=== PATIENT | male | born 1975 | race Caucasian/White ===

== ENCOUNTER 2018-04-04 01:58 | Inpatient (IN) | payer OTHER, SELFPAY ==
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
[2018-04-04 03:48] LABS: Basophils # (Auto) 0.2 K/mm3 (0.0-0.1); Basophils % (Auto) 1.1 % (0.0-1.8); Eosinophils % (Auto) 0.3 % (0.0-4.3); Lymphocytes % (Auto) 6.8 % (13.4-35.0); Mean Corpuscular HGB Conc 37 % (32-34); Mean Corpuscular Volume 110 fl (84-94); Red Blood Count 2.83 M/mm3 (3.65-5.03); Red Cell Distribution Width 14.5 % (13.2-15.2)
[2018-04-04] MEDS ORDERED: ZOFRAN IV ONE (03:48)
[2018-04-04] MEDS ORDERED: SUBLIMAZE IV ONE (03:48)
[2018-04-04 03:57] LABS: Platelet Count 100 K/mm3 (140-440)
--- NOTE | 2018-04-04 04:04 | XRay Report ---
FINAL REPORT EXAM: XR CHEST 1V AP HISTORY: shortness of breath TECHNIQUE: A portable upright view of the chest was obtained. FINDINGS: The heart size and vascularity appear normal. The lungs are clear. Pleural fluid is not seen. The bon es and soft tissues well maintained. IMPRESSION: No acute cardiopulmonary process.
[2018-04-04 04:09] LABS: Alanine Aminotransferase 51 units/L (7-56); Albumin 2.3 g/dL (3.9-5); BUN/Creatinine Ratio 10; Blood Urea Nitrogen 2 mg/dL (9-20); Calcium 6.9 mg/dL (8.4-10.2); Hemolysis Index 0
[2018-04-04 04:17] LABS: Free T4 (Free Thyroxine) 1.25 ng/dL (0.76-1.46); INR 2.16 (0.87-1.13)
[2018-04-04 04:18] LABS: Partial Thromboplastin Time 59.5 Sec. (24.2-36.6)
[2018-04-04] MEDS ORDERED: NACL 0.9% 1000 ML 1,000 ML IV ONE (04:24)
[2018-04-04] MEDS ORDERED: NACL 0.9% 1000 ML 1,000 ML ONE (04:25)
[2018-04-04 04:36] LABS: Hematocrit 30.5 % (35.5-45.6); Hemoglobin 11.2 gm/dl (11.8-15.2)
[2018-04-04] MEDS ORDERED: CEPHULAC PO ONE (04:37)
[2018-04-04] MEDS ORDERED: MORPHINE IV ONE (05:57)
[2018-04-04] MEDS ORDERED: MORPHINE ONE (06:03)
[2018-04-04] MEDS ORDERED: ZOFRAN IV PRN (06:26)
[2018-04-04] MEDS ORDERED: SODIUM CHLORIDE FLUSH SYRINGE 10 ML IV PRN (06:26)
[2018-04-04] MEDS ORDERED: MAGNESIUM SULFATE 1 GM in NACL 0.9% 50 ML IV ONE (06:32)
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
--- NOTE | 2018-04-04 07:50 | Ultrasound Report ---
FINAL REPORT EXAM: US ABDOMEN COMPLETE HISTORY: elevated bili TECHNIQUE: Routine imaging was obtained of the abdomen. FINDINGS: The study is limited because of the patient's habitus. The liver reveals increased echotexture compat ible with fatty change. There are no focal hepatic lesions. The gallbladder is normal in size. Stones are not seen. The gallbladder wall thickness is 3.6 mm. There is no evidence of dilatation of the bi liary tree. The common bile duct is difficult to visualize. The left kidney is normal size contour and echotexture measuring 12.3 cm pole to pole. The right kidn ey is atrophic measuring 8 cm from pole to pole. There is no evidence of hydronephrosis. The spleen i s normal in size and echotexture. The pancreas is not well seen because of bowel gas. Free fluid is n ot seen. IMPRESSION: Hepatic steatosis. No evidence of biliary tree dilatation. No evidence of gallstones or secondary signs of acute cholecystitis. Atrophic right kidney. No evidence of hydronephrosis. Limited study because of patient's large habitus.
[2018-04-04] MEDS ORDERED: NACL 3% 500 ML IV ONE (08:00)
--- NOTE | 2018-04-04 08:43 | Consultation ---
History of Present Illness - Reason for Consult Consult date: 04/04/18 hyponatremia - History of Present Illness Mr. Lindsey is a 43yo with hx of alcohol abuse who presents to the hospital with generalized weakness. His sister is at bedside who reports appx 8 months ago, his eyes began turning yellow. In addition, she reports that onset of leg swelling at that time. Sister reports that recently, patient has been stumbling and likely falling as he has been found on the floor on prior occasions. Patient reports worsening of weakness over the past week. He denies headache, nausea and vomiting. He typically drinks 6-8 beers during the weekday and 10 beers/day on the weekend. Past History Past Surgical History: No surgical history Social history: lives with family, alcohol abuse Medications and Allergies Allergies Allergy/AdvReac Type Severity Reaction Status Date / Time No Known Allergies Allergy Verified 04/04/18 04:27 Home Medications Medication Instructions Recorded Confirmed Last Taken Type Multivitamin [One Daily 1 each PO DAILY 04/04/18 04/04/18 Unknown History Multivitamin] Active Meds: Active Medications Folic Acid (Folvite) 1 mg PO QDAY DENISE Sodium Chloride (Nacl 3%) 500 mls @ 25 mls/hr IV DIRECT ONE Stop: 04/05/18 03:59 Lorazepam (Ativan) 2 mg IV Q1HR PRN PRN Reason: CIWA-Ar 8-15 Lorazepam (Ativan) 4 mg IV Q1HR PRN PRN Reason: CIWA-Ar 16-25 Ondansetron HCl (Zofran) 4 mg IV Q8H PRN PRN Reason: Nausea And Vomiting Sodium Chloride (Sodium Chloride Flush Syringe 10 Ml) 10 ml IV BID DENISE Sodium Chloride (Sodium Chloride Flush Syringe 10 Ml) 10 ml IV PRN PRN PRN Reason: LINE FLUSH Thiamine HCl (Vitamin B-1) 100 mg PO DAILY DENISE Review of Systems All systems: negative Exam - Vital Signs Vital signs: Vital Signs Pulse Resp BP Pulse Ox 100 H 20 139/76 96 04/04/18 02:04 04/04/18 02:04 04/04/18 02:04 04/04/18 02:04 - General Appearance General appearance: well-developed, well-nourished EENT: sclera incterus Respiratory: Clear to Ascultation Heart: regular, S1S2 Gastrointestinal: Present: obese. Absent: tenderness, distended Integumentary: no rash, warm and dry Neurologic: other (alert; responds appropriately to questions) Musculoskeletal: Present: other Psychiatric: cooperative Results - Lab Results 04/04/18 04:00 04/04/18 Unknown Most recent lab results Calcium 6.9 mg/dL (8.4-10.2) L 04/04/18 03:00 Magnesium 1.60 mg/dL (1.7-2.3) L 04/04/18 03:00 Assessment and Plan Impression: * Severe hyponatremia, symptomatic * Hyperbilirubinemia * Peripheral edema * Alcohol hepatitis vs liver cirrhosis * Alcohol abuse Plan: * Patient w/ edema but CXR is clear. Given sx of generalized weakness and Na 103, will start 3% NaCl 50ml/hour * Serial Na [id number] * Will order SOsm, UOsm and urine lytes * Neuro checks [id number] * Patient would benefit from diruesis but would like Na >110 prior to starting Lasix * Alcohol cessation advised * GI/Hepatology consult pending
--- NOTE | 2018-04-04 09:14 | Vascular Lab Report ---
FINAL REPORT EXAM: VL VENOUS DUPLEX LE BILAT HISTORY: leg pain TECHNIQUE: Doe scale with color flow and spectral waveform Doppler imaging. PRIORS: None. FINDINGS: There is no evidence of deep venous thrombosis in either lower extremity. Flow is demonstrated by color flow and spectral waveform Doppler imaging. There is appropriate augmentation and wall compression. There is also no superficial venous thrombus seen. IMPRESSION: There is no evidence for DVT in right or left lower extremity.
[2018-04-04 10:26] LABS: BUN/Creatinine Ratio 10; Blood Urea Nitrogen 2 mg/dL (9-20); Calcium 6.7 mg/dL (8.4-10.2); Hemolysis Index 23
[2018-04-04] MEDS ORDERED: MORPHINE IV PRN (10:33)
[2018-04-04] MEDS: MORPHINE IV PRN (11:35)
[2018-04-04] MEDS: FOLVITE PO SCH (11:37)
[2018-04-04] MEDS: VITAMIN B-1 PO SCH (11:37)
[2018-04-04] MEDS: SODIUM CHLORIDE FLUSH SYRINGE 10 ML IV SCH ×2 (11:38→22:30)
--- NOTE | 2018-04-04 12:05 | Event Note ---
Date: 04/04/18 Patient with acute alcoholic hepatitis, severe hyponatremia on 3%NaCl. I have seen and examined him. Continue current management.
--- NOTE | 2018-04-04 12:16 | Gastroenterology Consultation ---
<LYNDON DE LUNA - Last Filed: 04/04/18 12:55> History of Present Illness - Reason for Consult Consult date: 04/04/18 ETOH/cirrhosis Requesting physician: THERESA RESTREPO - History of Present Illness Patient is a 43 y/o male with PMH of ETOH abuse who presented to ED with c/o generalized weakness, leg swelling/pain, and jaundice. Upon admission he was found to have hyponatremia and hyperbilirubinemia. GI has been consulted to ETOH/cirrhosis? This afternoon patient was resting in bed w/o acute distress and family at bedside. He is currently w/o GI complaints. Denies fever, CP, SOB, wt loss, abd pain, N/V, signs of bleeding, or LGI symptoms. Has no prior hx of liver disease. No Fhx of liver disease. No illicit drug use. Admits to heavy alcohol consumption with a 6 pack of beer daily and more on weekends for over 10 years. Past History Past Medical History: hypertension, other (obesity) Past Surgical History: No surgical history Social history: alcohol abuse. denies: smoking, IV drug use Family history: hypertension Medications and Allergies Allergies Allergy/AdvReac Type Severity Reaction Status Date / Time No Known Allergies Allergy Verified 04/04/18 04:27 Home Medications Medication Instructions Recorded Confirmed Last Taken Type Multivitamin [One Daily 1 each PO DAILY 04/04/18 04/04/18 Unknown History Multivitamin] Active Meds: Active Medications Folic Acid (Folvite) 1 mg PO QDAY DENISE Last Admin: 04/04/18 11:37 Dose: 1 mg Documented by: Sodium Chloride (Nacl 3%) 500 mls @ 25 mls/hr IV DIRECT ONE Stop: 04/05/18 03:59 Last Admin: 04/04/18 09:08 Dose: 25 mls/hr Documented by: Lorazepam (Ativan) 2 mg IV Q1HR PRN PRN Reason: CIWA-Ar 8-15 Lorazepam (Ativan) 4 mg IV Q1HR PRN PRN Reason: CIWA-Ar 16-25 Morphine Sulfate (Morphine) 2 mg IV Q4H PRN PRN Reason: Pain, Moderate (4-6) Last Admin: 04/04/18 11:35 Dose: 2 mg Documented by: Ondansetron HCl (Zofran) 4 mg IV Q8H PRN PRN Reason: Nausea And Vomiting Sodium Chloride (Sodium Chloride Flush Syringe 10 Ml) 10 ml IV BID [facility] Last Admin: 04/04/18 11:38 Dose: 10 ml Documented by: Sodium Chloride (Sodium Chloride Flush Syringe 10 Ml) 10 ml IV PRN PRN PRN Reason: LINE FLUSH Thiamine HCl (Vitamin B-1) 100 mg PO DAILY [facility] Last Admin: 04/04/18 11:37 Dose: 100 mg Documented by: medications reviewed/updated as required Review of Systems - Review of Systems All systems: negative Constitutional: weakness Gastrointestinal: jaundice, no abdominal pain, no nausea, no vomiting Musculoskeletal: other (leg pain/swelling) Exam - Constitutional Vital Signs: Temp Pulse Resp BP Pulse Ox 98.9 F 92 H 18 106/64 98 04/04/18 10:00 04/04/18 09:12 04/04/18 09:12 04/04/18 09:12 04/04/18 09:12 General appearance: no acute distress, obese - EENT Eyes: PERRL, EOM intact, scleral icterus ENT: hearing intact - Respiratory Respiratory: bilateral: CTA - Cardiovascular Rhythm: regular Heart Sounds: Present: S1 & S2 - Gastrointestinal General gastrointestinal: Present: soft, non-tender, non-distended, normal bowel sounds, other (obese) - Integumentary Integumentary: Present: jaundice - Neurologic Neurological: alert and oriented x3 - Labs CBC & Chem 7: 04/04/18 04:00 04/04/18 Unknown Lab Results: Laboratory Results - last 24 hr 04/04/18 04/04/18 04/04/18 03:00 03:00 03:00 WBC 14.1 H RBC 2.83 L Hgb Hct MCV 110 H MCH 40 H MCHC 37 H RDW 14.5 Plt Count 100 L Lymph % (Auto) 6.8 L [place] % (Auto) 7.0 Eos % (Auto) 0.3 Baso % (Auto) 1.1 Lymph # 1.0 L [place] # 1.0 H Eos # 0.0 Baso # 0.2 H Seg Neutrophils % 84.8 H Seg Neutrophils # 11.9 H PT 24.5 H INR 2.16 H APTT 59.5 H Sodium 103 L* Potassium 3.7 Chloride 65.5 L Carbon Dioxide 17 L Anion Gap 22 BUN 2 L Creatinine < 0.2 L Estimated GFR > 60 BUN/Creatinine Ratio 10 Glucose 121 H Osmolality Calcium 6.9 L Magnesium Total Bilirubin 14.80 H AST 291 H ALT 51 Alkaline Phosphatase 112 Ammonia NT-Pro-B Natriuret Pep Total Protein 8.5 H Albumin 2.3 L Albumin/Globulin Ratio 0.4 Lipase 121 H TSH Free T4 Plasma/Serum Alcohol Blood Type Antibody Screen 04/04/18 04/04/18 04/04/18 03:00 03:00 03:00 WBC RBC Hgb Hct MCV MCH MCHC RDW Plt Count Lymph % (Auto) [place] % (Auto) Eos % (Auto) Baso % (Auto) Lymph # [place] # Eos # Baso # Seg Neutrophils % Seg Neutrophils # PT INR APTT Sodium Potassium Chloride Carbon Dioxide Anion Gap BUN Creatinine Estimated GFR BUN/Creatinine Ratio Glucose Osmolality Calcium Magnesium Total Bilirubin AST ALT Alkaline Phosphatase Ammonia 78.0 H NT-Pro-B Natriuret Pep Total Protein Albumin Albumin/Globulin Ratio Lipase TSH 2.320 Free T4 1.25 Plasma/Serum Alcohol Blood Type O POSITIVE Antibody Screen Negative 04/04/18 04/04/18 04/04/18 03:00 03:00 03:00 WBC RBC Hgb Hct MCV MCH MCHC RDW Plt Count Lymph % (Auto) [place] % (Auto) Eos % (Auto) Baso % (Auto) Lymph # [place] # Eos # Baso # Seg Neutrophils % Seg Neutrophils # PT INR APTT Sodium Potassium Chloride Carbon Dioxide Anion Gap BUN Creatinine Estimated GFR BUN/Creatinine Ratio Glucose Osmolality Calcium Magnesium 1.60 L Total Bilirubin AST ALT Alkaline Phosphatase Ammonia NT-Pro-B Natriuret Pep 519.7 H Total Protein Albumin Albumin/Globulin Ratio Lipase TSH Free T4 Plasma/Serum Alcohol 0.20 H Blood Type Antibody Screen 04/04/18 04/04/18 04/04/18 04:00 07:55 09:57 WBC RBC Hgb 11.2 L Hct 30.5 L MCV MCH MCHC RDW Plt Count Lymph % (Auto) [place] % (Auto) Eos % (Auto) Baso % (Auto) Lymph # [place] # Eos # Baso # Seg Neutrophils % Seg Neutrophils # PT INR APTT Sodium 102 L* Potassium 3.8 Chloride 70.2 L Carbon Dioxide 18 L Anion Gap 19 BUN 2 L Creatinine < 0.2 L Estimated GFR > 60 BUN/Creatinine Ratio 10 Glucose 104 H Osmolality 270 Calcium 6.7 L Magnesium Total Bilirubin AST ALT Alkaline Phosphatase Ammonia NT-Pro-B Natriuret Pep Total Protein Albumin Albumin/Globulin Ratio Lipase TSH Free T4 Plasma/Serum Alcohol Blood Type Antibody Screen 04/04/18 Unknown WBC RBC Hgb Hct MCV MCH MCHC RDW Plt Count Lymph % (Auto) [place] % (Auto) Eos % (Auto) Baso % (Auto) Lymph # [place] # Eos # Baso # Seg Neutrophils % Seg Neutrophils # PT INR APTT Sodium 103 L* Potassium Chloride Carbon Dioxide Anion Gap BUN Creatinine Estimated GFR BUN/Creatinine Ratio Glucose Osmolality Calcium Magnesium Total Bilirubin AST ALT Alkaline Phosphatase Ammonia NT-Pro-B Natriuret Pep Total Protein Albumin Albumin/Globulin Ratio Lipase TSH Free T4 Plasma/Serum Alcohol Blood Type Antibody Screen Assessment and Plan 1.jaundice/hyperbilirubinemia 2.ETOH abuse -afebrile -WBC 14.1 -H/H 11.2/30.5-no active signs of bleeding -Plt 100, INR 2.16 -T.tushar 14.80, AST 291, ALT 51, alk phos 112 -abd U/S-showed hepatic steatosis; no evidence of obstruction or lesion -etiology- likely acute alcoholic hepatitis; underlying cirrhosis unable to be excluded (labs suggestive given low plt and elevated INR) -clinically, patient is w/o abd pain, N/V, or active signs of bleeding. No c linical evidence of encephalopathy upon exam. -discriminant function= 72 (indicative of high short-term mortality)- will start on steroids (Prednisolone 40mg daily) -hepatitis panel in am -alcohol cessation discussed with patient-monitor for withdrawal symptoms -continue to trend labs and supportive care -will follow <LOVE GOODWIN - Last Filed: 04/04/18 19:17> Medications and Allergies Active Meds: Active Medications Folic Acid (Folvite) 1 mg PO QDAY [facility] Last Admin: 04/04/18 11:37 Dose: 1 mg Documented by: Lorazepam (Ativan) 2 mg IV Q1HR PRN PRN Reason: CIWA-Ar 8-15 Last Admin: 04/04/18 16:08 Dose: 2 mg Documented by: Lorazepam (Ativan) 4 mg IV Q1HR PRN PRN Reason: CIWA-Ar 16-25 Morphine Sulfate (Morphine) 2 mg IV Q4H PRN PRN Reason: Pain, Moderate (4-6) Last Admin: 04/04/18 11:35 Dose: 2 mg Documented by: Ondansetron HCl (Zofran) 4 mg IV Q8H PRN PRN Reason: Nausea And Vomiting Prednisolone Sodium Phosphate (Orapred) 40 mg PO DAILY [facility] Sodium Chloride (Sodium Chloride Flush Syringe 10 Ml) 10 ml IV BID [facility] Last Admin: 04/04/18 11:38 Dose: 10 ml Documented by: Sodium Chloride (Sodium Chloride Flush Syringe 10 Ml) 10 ml IV PRN PRN PRN Reason: LINE FLUSH Thiamine HCl (Vitamin B-1) 100 mg PO DAILY [facility] Last Admin: 04/04/18 11:37 Dose: 100 mg Documented by: Exam - Constitutional Vital Signs: Temp Pulse Resp BP Pulse Ox 98.7 F 92 H 22 106/64 97 04/04/18 16:00 04/04/18 09:12 04/04/18 14:58 04/04/18 09:12 04/04/18 14:58 - Labs CBC & Chem 7: 04/04/18 04:00 04/04/18 Unknown Lab Results: Laboratory Results - last 24 hr 04/04/18 04/04/18 04/04/18 03:00 03:00 03:00 WBC 14.1 H RBC 2.83 L Hgb Hct MCV 110 H MCH 40 H MCHC 37 H RDW 14.5 Plt Count 100 L Lymph % (Auto) 6.8 L [place] % (Auto) 7.0 Eos % (Auto) 0.3 Baso % (Auto) 1.1 Lymph # 1.0 L [place] # 1.0 H Eos # 0.0 Baso # 0.2 H Seg Neutrophils % 84.8 H Seg Neutrophils # 11.9 H PT 24.5 H INR 2.16 H APTT 59.5 H Sodium 103 L* Potassium 3.7 Chloride 65.5 L Carbon Dioxide 17 L Anion Gap 22 BUN 2 L Creatinine < 0.2 L Estimated GFR > 60 BUN/Creatinine Ratio 10 Glucose 121 H Osmolality Calcium 6.9 L Magnesium Total Bilirubin 14.80 H AST 291 H ALT 51 Alkaline Phosphatase 112 Ammonia NT-Pro-B Natriuret Pep Total Protein 8.5 H Albumin 2.3 L Albumin/Globulin Ratio 0.4 Lipase 121 H TSH Free T4 Urine Color Urine Turbidity Urine pH Ur Specific [place] Urine Protein Urine Glucose (UA) Urine Ketones Urine Blood Urine Nitrite Urine Bilirubin Urine Ictotest Urine Urobilinogen Ur Leukocyte Esterase Urine WBC (Auto) Urine RBC (Auto) Urine Bacteria (Auto) Urine Mucus Urine Osmolality Urine Creatinine Urine Sodium Urine Chloride Plasma/Serum Alcohol Blood Type Antibody Screen 04/04/18 04/04/18 04/04/18 03:00 03:00 03:00 WBC RBC Hgb Hct MCV MCH MCHC RDW Plt Count Lymph % (Auto) [place] % (Auto) Eos % (Auto) Baso % (Auto) Lymph # [place] # Eos # Baso # Seg Neutrophils % Seg Neutrophils # PT INR APTT Sodium Potassium Chloride Carbon Dioxide Anion Gap BUN Creatinine Estimated GFR BUN/Creatinine Ratio Glucose Osmolality Calcium Magnesium Total Bilirubin AST ALT Alkaline Phosphatase Ammonia 78.0 H NT-Pro-B Natriuret Pep Total Protein Albumin Albumin/Globulin Ratio Lipase TSH 2.320 Free T4 1.25 Urine Color Urine Turbidity Urine pH Ur Specific [place] Urine Protein Urine Glucose (UA) Urine Ketones Urine Blood Urine Nitrite Urine Bilirubin Urine Ictotest Urine Urobilinogen Ur Leukocyte Esterase Urine WBC (Auto) Urine RBC (Auto) Urine Bacteria (Auto) Urine Mucus Urine Osmolality Urine Creatinine Urine Sodium Urine Chloride Plasma/Serum Alcohol Blood Type O POSITIVE Antibody Screen Negative 04/04/18 04/04/18 04/04/18 03:00 03:00 03:00 WBC RBC Hgb Hct MCV MCH MCHC RDW Plt Count Lymph % (Auto) [place] % (Auto) Eos % (Auto) Baso % (Auto) Lymph # [place] # Eos # Baso # Seg Neutrophils % Seg Neutrophils # PT INR APTT Sodium Potassium Chloride Carbon Dioxide Anion Gap BUN Creatinine Estimated GFR BUN/Creatinine Ratio Glucose Osmolality Calcium Magnesium 1.60 L Total Bilirubin AST ALT Alkaline Phosphatase Ammonia NT-Pro-B Natriuret Pep 519.7 H Total Protein Albumin Albumin/Globulin Ratio Lipase TSH Free T4 Urine Color Urine Turbidity Urine pH Ur Specific [place] Urine Protein Urine Glucose (UA) Urine Ketones Urine Blood Urine Nitrite Urine Bilirubin Urine Ictotest Urine Urobilinogen Ur Leukocyte Esterase Urine WBC (Auto) Urine RBC (Auto) Urine Bacteria (Auto) Urine Mucus Urine Osmolality Urine Creatinine Urine Sodium Urine Chloride Plasma/Serum Alcohol 0.20 H Blood Type Antibody Screen 04/04/18 04/04/18 04/04/18 04:00 07:55 09:57 WBC RBC Hgb 11.2 L Hct 30.5 L MCV MCH MCHC RDW Plt Count Lymph % (Auto) [place] % (Auto) Eos % (Auto) Baso % (Auto) Lymph # [place] # Eos # Baso # Seg Neutrophils % Seg Neutrophils # PT INR APTT Sodium 102 L* Potassium 3.8 Chloride 70.2 L Carbon Dioxide 18 L Anion Gap 19 BUN 2 L Creatinine < 0.2 L Estimated GFR > 60 BUN/Creatinine Ratio 10 Glucose 104 H Osmolality 270 Calcium 6.7 L Magnesium Total Bilirubin AST ALT Alkaline Phosphatase Ammonia NT-Pro-B Natriuret Pep Total Protein Albumin Albumin/Globulin Ratio Lipase TSH Free T4 Urine Color Urine Turbidity Urine pH Ur Specific [place] Urine Protein Urine Glucose (UA) Urine Ketones Urine Blood Urine Nitrite Urine Bilirubin Urine Ictotest Urine Urobilinogen Ur Leukocyte Esterase Urine WBC (Auto) Urine RBC (Auto) Urine Bacteria (Auto) Urine Mucus Urine Osmolality Urine Creatinine Urine Sodium Urine Chloride Plasma/Serum Alcohol Blood Type Antibody Screen 04/04/18 04/04/18 04/04/18 15:15 16:10 16:10 WBC RBC Hgb Hct MCV MCH MCHC RDW Plt Count Lymph % (Auto) [place] % (Auto) Eos % (Auto) Baso % (Auto) Lymph # [place] # Eos # Baso # Seg Neutrophils % Seg Neutrophils # PT INR APTT Sodium 104 L* Potassium 3.8 Chloride 72.0 L Carbon Dioxide 20 L Anion Gap 16 BUN 2 L Creatinine < 0.2 L Estimated GFR > 60 BUN/Creatinine Ratio 10 Glucose 114 H Osmolality Calcium 6.5 L Magnesium Total Bilirubin AST ALT Alkaline Phosphatase Ammonia NT-Pro-B Natriuret Pep Total Protein Albumin Albumin/Globulin Ratio Lipase TSH Free T4 Urine Color [place] Urine Turbidity Cloudy Urine pH 6.0 Ur Specific [place] 1.017 Urine Protein 30 mg/dl Urine Glucose (UA) 50 Urine Ketones Tr Urine Blood Lg Urine Nitrite Neg Urine Bilirubin Mod Urine Ictotest Positive Urine Urobilinogen 4.0 Ur Leukocyte Esterase Neg Urine WBC (Auto) 24.0 H Urine RBC (Auto) 3.0 Urine Bacteria (Auto) 2+ Urine Mucus 1+ Urine Osmolality Urine Creatinine 136.8 H Urine Sodium 13 Urine Chloride 23.9 L Plasma/Serum Alcohol Blood Type Antibody Screen 04/04/18 04/04/18 04/04/18 16:10 18:30 Unknown WBC RBC Hgb Hct MCV MCH MCHC RDW Plt Count Lymph % (Auto) [place] % (Auto) Eos % (Auto) Baso % (Auto) Lymph # [place] # Eos # Baso # Seg Neutrophils % Seg Neutrophils # PT INR APTT Sodium 105 L* 103 L* Potassium 3.8 Chloride 74.1 L Carbon Dioxide 20 L Anion Gap 15 BUN 3 L Creatinine 0.2 L Estimated GFR > 60 BUN/Creatinine Ratio 15 Glucose 110 H Osmolality Calcium 6.5 L Magnesium Total Bilirubin AST ALT Alkaline Phosphatase Ammonia NT-Pro-B Natriuret Pep Total Protein Albumin Albumin/Globulin Ratio Lipase TSH Free T4 Urine Color Urine Turbidity Urine pH Ur Specific [place] Urine Protein Urine Glucose (UA) Urine Ketones Urine Blood Urine Nitrite Urine Bilirubin Urine Ictotest Urine Urobilinogen Ur Leukocyte Esterase Urine WBC (Auto) Urine RBC (Auto) Urine Bacteria (Auto) Urine Mucus Urine Osmolality 485 Urine Creatinine Urine Sodium Urine Chloride Plasma/Serum Alcohol Blood Type Antibody Screen Assessment and Plan Pt seen and examined. Agree with note above. Pt presenting with likely alcoholic hepatitis; has complications of severe hyponatremia. no overt encephalopathy. No signs of infection or gi bleeding. Prednisolone as above. Trend daily labs. Consult nutrition for recommendations
[2018-04-04 15:45] LABS: BUN/Creatinine Ratio 10; Blood Urea Nitrogen 2 mg/dL (9-20); Calcium 6.5 mg/dL (8.4-10.2); Hemolysis Index 0
[2018-04-04] MEDS: ATIVAN IV PRN (16:08)
[2018-04-04 16:30] LABS: Bacteria,Urine 2+ /HPF (Negative); Bilirubin,Urine MOD (Negative); Blood,Urine LG (Negative); Color,Urine Amber (Yellow); Mucus,Urine 1+ /HPF
[2018-04-04 16:35] LABS: Ictotest,Urine Positive (Negative)
[2018-04-04 16:50] LABS: Chloride, Urine 23.9 mmolL (110-250); Creatinine,Urine 136.8 mg/dL (0.1-20.0)
[2018-04-04 18:33] LABS: BUN/Creatinine Ratio 15; Blood Urea Nitrogen 3 mg/dL (9-20); Calcium 6.5 mg/dL (8.4-10.2); Hemolysis Index 5
[2018-04-04] MEDS: ORAPRED PO SCH (20:29)
[2018-04-04 22:18] LABS: BUN/Creatinine Ratio 15; Blood Urea Nitrogen 3 mg/dL (9-20); Calcium 6.6 mg/dL (8.4-10.2); Hemolysis Index 0
[2018-04-04] MEDS ORDERED: K-DUR PO NR (23:12)
[2018-04-04] MEDS ORDERED: MAGNESIUM SULFATE IV ONE (23:13)
[2018-04-04] MEDS ORDERED: POTASSIUM CHLORIDE FEEDTUBE NR (23:49)
[2018-04-05] MEDS ORDERED: MAGNESIUM SULFATE 2GM/50ML 2 GM/50 ML BAG IV ONE
[2018-04-05 02:47] LABS: BUN/Creatinine Ratio 15; Blood Urea Nitrogen 3 mg/dL (9-20); Calcium 6.8 mg/dL (8.4-10.2); Hemolysis Index 0
[2018-04-05] MEDS ORDERED: NACL 3% 500 ML IV ONE (03:10)
[2018-04-05] MEDS: ATIVAN IV PRN (03:22)
[2018-04-05 05:30] LABS: Hemoglobin 10.3 gm/dl (11.8-15.2); Mean Corpuscular HGB Conc 36 % (32-34); Red Blood Count 2.59 M/mm3 (3.65-5.03); Red Cell Distribution Width 14.5 % (13.2-15.2)
[2018-04-05 05:31] LABS: Mean Corpuscular Volume 112 fl (84-94); Platelet Count 76 K/mm3 (140-440)
[2018-04-05 05:43] LABS: INR 2.23 (0.87-1.13)
[2018-04-05 05:44] LABS: Partial Thromboplastin Time 59.4 Sec. (24.2-36.6)
[2018-04-05 05:58] LABS: Alanine Aminotransferase 86 units/L (7-56); Albumin 2.2 g/dL (3.9-5); BUN/Creatinine Ratio 15; Blood Urea Nitrogen 3 mg/dL (9-20); Calcium 6.7 mg/dL (8.4-10.2); Hemolysis Index 0
[2018-04-05 06:58] LABS: Band Neutrophils # (Manual) 2.4 K/mm3; Basophils % (Manual) 0 % (0.0-1.8); Eosinophils % (Manual) 0 % (0.0-4.3); Macrocytosis 1+; Target Cells Few; Total Cells Counted 100
[2018-04-05 06:59] LABS: Hypochromasia Few; Platelet Estimate Consistent w Auto; Spherocytes Few
--- NOTE | 2018-04-05 09:26 | Progress Note ---
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 * Alcohol abuse * Hypomagnesemia Plan: * Na improved - 108 this am. Continue 3% NaCl 50ml/hour * Serial Na [id number] * Patient w/ peripheral edema, but abd u/s without ascites; hold diuresis for now * Alcohol cessation advised * GI/Hepatology recommendations noted * Replete lytes prn Subjective Date of service: 04/05/18 Interval history: No acute events overnight Objective - Vital Signs Vital signs: Vital Signs - 12hr 04/04/18 04/04/18 04/05/18 22:00 22:17 00:00 Temperature Pulse Rate 88 O2 Sat by Pulse 95 100 Oximetry 04/05/18 04/05/18 04:00 08:33 Temperature 98.3 F Pulse Rate O2 Sat by Pulse 99 92 Oximetry - General Appearance General appearance: well-developed, well-nourished, other (patient is eating breakfast, watching TV, requests to get out of bed and in a chair) EENT: sclera incterus Respiratory: Present: Decreased Breath Sounds Cardiology: regular, S1S2 Gastrointestinal: no tenderness, no distended, obese Integumentary: no rash, warm and dry Neurologic: other (alert) Musculoskeletal: other (+edema) Psychiatric: cooperative - Lab 04/05/18 04:59 04/05/18 04:59 Most recent lab results Calcium 6.7 mg/dL (8.4-10.2) L 04/05/18 04:59 Magnesium 1.60 mg/dL (1.7-2.3) L 04/04/18 03:00 Urine Creatinine 136.8 mg/dL (0.1-20.0) H 04/04/18 16:10 Urine Sodium 13 mmol/L 04/04/18 16:10 Medications & Allergies - Medications Allergies/Adverse Reactions: Allergies No Known Allergies Allergy (Verified 04/04/18 04:27) Home Medications: Home Medications Medication Instructions Recorded Confirmed Last Taken Type Multivitamin [One Daily 1 each PO DAILY 04/04/18 04/04/18 Unknown History Multivitamin] Active Medications: Generic Name Dose Route Start Last Admin Trade Name Freq PRN Reason Stop Dose Admin Folic Acid 1 mg 04/04/18 10:00 04/04/18 11:37 Folvite PO 1 mg QDAY DENISE Administration Sodium Chloride 500 mls @ 50 mls/hr 04/05/18 03:10 04/05/18 03:50 Nacl 3% IV 04/05/18 13:09 50 mls/hr DIRECT ONE Administration Lorazepam 4 mg 04/04/18 06:32 Ativan IV Q1HR PRN CIWA-Ar 16-25 Morphine Sulfate 2 mg 04/04/18 12:00 04/04/18 11:35 Morphine IV 2 mg Q4H PRN Administration Pain, Moderate (4-6) Ondansetron HCl 4 mg 04/04/18 06:26 Zofran IV Q8H PRN Nausea And Vomiting Prednisolone Sodium Phosphate 40 mg 04/04/18 16:00 04/04/18 20:29 Orapred PO 40 mg DAILY DENISE Administration Sodium Bicarbonate 1,300 mg 04/05/18 10:00 Sodium Bicarbonate PO BID DENISE Sodium Chloride 10 ml 04/04/18 10:00 04/04/18 22:30 Sodium Chloride Flush Syringe 10 Ml IV 10 ml BID DENISE Administration Sodium Chloride 10 ml 04/04/18 06:26 Sodium Chloride Flush Syringe 10 Ml IV PRN PRN LINE FLUSH Thiamine HCl 100 mg 04/04/18 10:00 04/04/18 11:37 Vitamin B-1 PO 100 mg DAILY DENISE Administration
[2018-04-05] MEDS: VITAMIN B-1 PO SCH (10:22)
[2018-04-05] MEDS: SODIUM BICARBONATE PO SCH ×2 (10:22→23:03)
[2018-04-05] MEDS: FOLVITE PO SCH (10:22)
[2018-04-05] MEDS: SODIUM CHLORIDE FLUSH SYRINGE 10 ML IV SCH ×2 (10:23→23:05)
[2018-04-05 10:25] LABS: BUN/Creatinine Ratio 20; Blood Urea Nitrogen 4 mg/dL (9-20); Calcium 6.6 mg/dL (8.4-10.2); Hemolysis Index 131
--- NOTE | 2018-04-05 11:02 | Progress Note ---
Assessment and Plan Assessment and plan: Severe hyponatremia, symptomatic; secondary to alcohol abuse/beer potomania. Sodium improved. Continue 3% normal saline per nephrology. Continue serial sodium every 4 hours. Hyperbilirubinemia. Abdominal ultrasound without ascites. Peripheral edema. 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 EtOH abuse. Continue CIWA protocol. Hypomagnesemia. Replete magnesium. History Interval history: No new issues overnight. Hospitalist Physical - Constitutional Vitals: Temp Pulse Resp BP Pulse Ox 98.7 F 88 22 106/64 92 04/05/18 09:29 04/04/18 22:00 04/04/18 14:58 04/04/18 09:12 04/05/18 08:33 General appearance: Present: no acute distress, well-nourished - EENT Eyes: Present: PERRL, EOM intact ENT: hearing intact, clear oral mucosa, dentition normal - Neck Neck: Present: supple, normal ROM - Respiratory Respiratory effort: normal Respiratory: bilateral: CTA - Cardiovascular Rhythm: regular Heart Sounds: Present: S1 & S2. Absent: gallop, rub - Extremities Extremities: no ischemia, No edema, Full ROM - Abdominal General gastrointestinal: soft, non-tender, non-distended, normal bowel sounds - Integumentary Integumentary: Present: clear, warm, dry - Neurologic Neurologic: CNII-XII intact, moves all extremities Results - Labs CBC & Chem 7: 04/05/18 04:59 04/05/18 09:42 Labs: Laboratory Last Values WBC 12.2 K/mm3 (4.5-11.0) H 04/05/18 04:59 RBC 2.59 M/mm3 (3.65-5.03) L 04/05/18 04:59 Hgb 10.3 gm/dl (11.8-15.2) L 04/05/18 04:59 Hct 29.0 % (35.5-45.6) L 04/05/18 04:59 MCV 112 fl (84-94) H 04/05/18 04:59 MCH 40 pg (28-32) H 04/05/18 04:59 MCHC 36 % (32-34) H 04/05/18 04:59 RDW 14.5 % (13.2-15.2) 04/05/18 04:59 Plt Count 76 K/mm3 (140-440) L 04/05/18 04:59 Lymph % (Auto) 6.8 % (13.4-35.0) L 04/04/18 03:00 Mayes % (Auto) 7.0 % (0.0-7.3) 04/04/18 03:00 Eos % (Auto) 0.3 % (0.0-4.3) 04/04/18 03:00 Baso % (Auto) 1.1 % (0.0-1.8) 04/04/18 03:00 Lymph # 1.0 K/mm3 (1.2-5.4) L 04/04/18 03:00 Mayes # 1.0 K/mm3 (0.0-0.8) H 04/04/18 03:00 Eos # 0.0 K/mm3 (0.0-0.4) 04/04/18 03:00 Baso # 0.2 K/mm3 (0.0-0.1) H 04/04/18 03:00 Add Manual Diff Complete 04/05/18 04:59 Total Counted 100 04/05/18 04:59 Seg Neutrophils % [employer]per 04/05/18 04:59 Seg Neuts % (Manual) 76.0 % (40.0-70.0) H 04/05/18 04:59 Band Neutrophils % 20.0 % 04/05/18 04:59 Lymphocytes % (Manual) 3.0 % (13.4-35.0) L 04/05/18 04:59 Reactive Lymphs % (Man) 0 % 04/05/18 04:59 Monocytes % (Manual) 1.0 % (0.0-7.3) 04/05/18 04:59 Eosinophils % (Manual) 0 % (0.0-4.3) 04/05/18 04:59 Basophils % (Manual) 0 % (0.0-1.8) 04/05/18 04:59 Metamyelocytes % 0 % 04/05/18 04:59 Myelocytes % 0 % 04/05/18 04:59 Promyelocytes % 0 % 04/05/18 04:59 Blast Cells % 0 % 04/05/18 04:59 Nucleated RBC % Not Reportable 04/05/18 04:59 Seg Neutrophils # 11.9 K/mm3 (1.8-7.7) H 04/04/18 03:00 Seg Neutrophils # Man 9.3 K/mm3 (1.8-7.7) H 04/05/18 04:59 Band Neutrophils # 2.4 K/mm3 04/05/18 04:59 Lymphocytes # (Manual) 0.4 K/mm3 (1.2-5.4) L 04/05/18 04:59 Abs React Lymphs (Man) 0.0 K/mm3 04/05/18 04:59 Monocytes # (Manual) 0.1 K/mm3 (0.0-0.8) 04/05/18 04:59 Eosinophils # (Manual) 0.0 K/mm3 (0.0-0.4) 04/05/18 04:59 Basophils # (Manual) 0.0 K/mm3 (0.0-0.1) 04/05/18 04:59 Metamyelocytes # 0.0 K/mm3 04/05/18 04:59 Myelocytes # 0.0 K/mm3 04/05/18 04:59 Promyelocytes # 0.0 K/mm3 04/05/18 04:59 Blast Cells # 0.0 K/mm3 04/05/18 04:59 WBC Morphology Not Reportable 04/05/18 04:59 Hypersegmented Neuts Not Reportable 04/05/18 04:59 Hyposegmented Neuts Not Reportable 04/05/18 04:59 Hypogranular Neuts Not Reportable 04/05/18 04:59 Smudge Cells Not Reportable 04/05/18 04:59 Toxic Granulation Not Reportable 04/05/18 04:59 Toxic Vacuolation Not Reportable 04/05/18 04:59 Dohle Bodies Not Reportable 04/05/18 04:59 Pelger-Huet Anomaly Not Reportable 04/05/18 04:59 Dannie Rods Not Reportable 04/05/18 04:59 Platelet Estimate Consistent w auto 04/05/18 04:59 Clumped Platelets Not Reportable 04/05/18 04:59 Plt Clumps, EDTA Not Reportable 04/05/18 04:59 Large Platelets Not Reportable 04/05/18 04:59 Giant Platelets Not Reportable 04/05/18 04:59 Platelet Satelliting Not Reportable 04/05/18 04:59 Plt Morphology Comment Not Reportable 04/05/18 04:59 RBC Morphology Not Reportable 04/05/18 04:59 Dimorphic RBCs Not Reportable 04/05/18 04:59 Polychromasia Not Reportable 04/05/18 04:59 Hypochromasia Few 04/05/18 04:59 Poikilocytosis Not Reportable 04/05/18 04:59 Anisocytosis Not Reportable 04/05/18 04:59 Microcytosis Not Reportable 04/05/18 04:59 Macrocytosis 1+ 04/05/18 04:59 Spherocytes Few 04/05/18 04:59 Pappenheimer Bodies Not Reportable 04/05/18 04:59 Sickle Cells Not Reportable 04/05/18 04:59 Target Cells Few 04/05/18 04:59 Tear Drop Cells Not Reportable 04/05/18 04:59 Ovalocytes Not Reportable 04/05/18 04:59 Helmet Cells Not Reportable 04/05/18 04:59 [place] Bodies Not Reportable 04/05/18 04:59 [place] Rings Not Reportable 04/05/18 04:59 Chandni Cells Not Reportable 04/05/18 04:59 Bite Cells Not Reportable 04/05/18 04:59 Crenated Cell Not Reportable 04/05/18 04:59 Elliptocytes Not Reportable 04/05/18 04:59 Acanthocytes (Spur) Not Reportable 04/05/18 04:59 Rouleaux Not Reportable 04/05/18 04:59 Hemoglobin C Crystals Not Reportable 04/05/18 04:59 Schistocytes Not Reportable 04/05/18 04:59 Malaria parasites Not Reportable 04/05/18 04:59 Slick Bodies Not Reportable 04/05/18 04:59 Hem Pathologist Commnt No 04/05/18 04:59 PT 25.1 Sec. (12.2-14.9) H 04/05/18 04:59 INR 2.23 (0.87-1.13) H 04/05/18 04:59 APTT 59.4 Sec. (24.2-36.6) H 04/05/18 04:59 Sodium 110 mmol/L (137-145) L* 04/05/18 09:42 Potassium 5.4 mmol/L (3.6-5.0) H D 04/05/18 09:42 Chloride 80.5 mmol/L (98-107) L 04/05/18 09:42 Carbon Dioxide 19 mmol/L (22-30) L 04/05/18 09:42 Anion Gap 16 mmol/L 04/05/18 09:42 BUN 4 mg/dL (9-20) L 04/05/18 09:42 Creatinine < 0.2 mg/dL (0.8-1.5) L 04/05/18 09:42 Estimated GFR > 60 ml/min 04/05/18 09:42 BUN/Creatinine Ratio 20 % 04/05/18 09:42 Glucose 128 mg/dL (75-100) H 04/05/18 09:42 POC Glucose 132 (70-105) H 04/04/18 21:37 Osmolality 270 Mosm/kg 04/04/18 07:55 Calcium 6.6 mg/dL (8.4-10.2) L 04/05/18 09:42 Magnesium 1.60 mg/dL (1.7-2.3) L 04/04/18 03:00 Total Bilirubin 15.00 mg/dL (0.1-1.2) H 04/05/18 04:59 AST 681 units/L (5-40) H 04/05/18 04:59 ALT 86 units/L (7-56) H 04/05/18 04:59 Alkaline Phosphatase 117 units/L (35-129) 04/05/18 04:59 Ammonia 78.0 umol/L (25-60) H 04/04/18 03:00 NT-Pro-B Natriuret Pep 519.7 pg/mL (0-450) H 04/04/18 03:00 Total Protein 7.5 g/dL (6.3-8.2) 04/05/18 04:59 Albumin 2.2 g/dL (3.9-5) L 04/05/18 04:59 Albumin/Globulin Ratio 0.4 % 04/05/18 04:59 Lipase 121 units/L (13-60) H 04/04/18 03:00 TSH 2.320 mlU/mL (0.270-4.200) 04/04/18 03:00 Free T4 1.25 ng/dL (0.76-1.46) 04/04/18 03:00 Urine Color [place] (Yellow) 04/04/18 16:10 Urine Turbidity Cloudy (Clear) 04/04/18 16:10 Urine pH 6.0 (5.0-7.0) 04/04/18 16:10 Ur Specific [place] 1.017 (1.003-1.030) 04/04/18 16:10 Urine Protein 30 mg/dl mg/dL (Negative) 04/04/18 16:10 Urine Glucose (UA) 50 mg/dL (Negative) 04/04/18 16:10 Urine Ketones Tr mg/dL (Negative) 04/04/18 16:10 Urine Blood Lg (Negative) 04/04/18 16:10 Urine Nitrite Neg (Negative) 04/04/18 16:10 Urine Bilirubin Mod (Negative) 04/04/18 16:10 Urine Ictotest Positive (Negative) 04/04/18 16:10 Urine Urobilinogen 4.0 mg/dL (<2.0) 04/04/18 16:10 Ur Leukocyte Esterase Neg (Negative) 04/04/18 16:10 Urine WBC (Auto) 24.0 /HPF (0.0-6.0) H 04/04/18 16:10 Urine RBC (Auto) 3.0 /HPF (0.0-6.0) 04/04/18 16:10 Urine Bacteria (Auto) 2+ /HPF (Negative) 04/04/18 16:10 Urine Mucus 1+ /HPF 04/04/18 16:10 Urine Osmolality 485 Mosm/kg 04/04/18 16:10 Urine Creatinine 136.8 mg/dL (0.1-20.0) H 04/04/18 16:10 Urine Sodium 13 mmol/L 04/04/18 16:10 Urine Chloride 23.9 mmolL (110-250) L 04/04/18 16:10 Plasma/Serum Alcohol 0.20 % (0-0.07) H 04/04/18 03:00 Blood Type O POSITIVE 04/04/18 03:00 Antibody Screen Negative 04/04/18 03:00
--- NOTE | 2018-04-05 12:13 | Gastroenterology Progress Note ---
<LYNDON DE LUNA - Last Filed: 04/05/18 12:25> Assessment and Plan 1.jaundice/hyperbilirubinemia 2.ETOH abuse 3.hyponatremia -afebrile -WBC 12.2 -H/H 10.3/29.0-no active signs of bleeding -hepatitis panel pending -Plt 76 -INR 2.23-trending up -LFTs trending up (T.tushar 15.00, AST 681, ALT 86, alk phos 117) -abd U/S-showed hepatic steatosis; no evidence of obstruction or lesion -etiology- likely acute alcoholic hepatitis; underlying cirrhosis unable to be excluded (labs suggestive given low plt and elevated INR) -clinically, patient has no overt encephalopathy. Denies abd pain, N/V, or active signs of bleeding. -discriminant function= 72 (indicative of high short-term mortality) -continue Prednisolone -start on empiric antibiotics (levaquin) -vitamin K challenge given increasing INR -alcohol cessation-monitor for signs of withdrawal -continue to trend labs and supportive care -will follow Subjective Date of service: 04/05/18 Principal diagnosis: ETOH/cirrhosis Interval history: Patient resting in bed w/o acute distress. A&O. Denies abd pain, N/V, or signs of bleeding. Objective - Constitutional Vitals: Temp Pulse Resp BP Pulse Ox 98.7 F 88 22 106/64 92 04/05/18 09:29 04/04/18 22:00 04/04/18 14:58 04/04/18 09:12 04/05/18 08:33 General appearance: no acute distress - EENT Eyes: PERRL, EOM intact, scleral icterus ENT: hearing intact - Respiratory Respiratory: bilateral: CTA - Cardiovascular Rhythm: regular Heart Sounds: Present: S1 & S2 - Gastrointestinal General gastrointestinal: Present: soft, non-tender, non-distended, normal bowel sounds, other (obese) - Neurologic Neurological: alert and oriented x3 - Labs CBC & Chem 7: 04/05/18 04:59 04/05/18 09:42 Labs: Laboratory Results - last 24 hr 04/04/18 04/04/18 04/04/18 15:15 16:10 16:10 WBC RBC Hgb Hct MCV MCH MCHC RDW Plt Count Add Manual Diff Total Counted Seg Neutrophils % Seg Neuts % (Manual) Band Neutrophils % Lymphocytes % (Manual) Reactive Lymphs % (Man) Monocytes % (Manual) Eosinophils % (Manual) Basophils % (Manual) Metamyelocytes % Myelocytes % Promyelocytes % Blast Cells % Nucleated RBC % Seg Neutrophils # Man Band Neutrophils # Lymphocytes # (Manual) Abs React Lymphs (Man) Monocytes # (Manual) Eosinophils # (Manual) Basophils # (Manual) Metamyelocytes # Myelocytes # Promyelocytes # Blast Cells # WBC Morphology Hypersegmented Neuts Hyposegmented Neuts Hypogranular Neuts Smudge Cells Toxic Granulation Toxic Vacuolation Dohle Bodies Pelger-Huet Anomaly Dannie Rods Platelet Estimate Clumped Platelets Plt Clumps, EDTA Large Platelets Giant Platelets Platelet Satelliting Plt Morphology Comment RBC Morphology Dimorphic RBCs Polychromasia Hypochromasia Poikilocytosis Anisocytosis Microcytosis Macrocytosis Spherocytes Pappenheimer Bodies Sickle Cells Target Cells Tear Drop Cells Ovalocytes Helmet Cells [place] Bodies [place] Rings [place] Cells Bite Cells Crenated Cell Elliptocytes Acanthocytes (Spur) Rouleaux Hemoglobin C Crystals Schistocytes Malaria parasites Slick Bodies Hem Pathologist Commnt PT INR APTT Sodium 104 L* Potassium 3.8 Chloride 72.0 L Carbon Dioxide 20 L Anion Gap 16 BUN 2 L Creatinine < 0.2 L Estimated GFR > 60 BUN/Creatinine Ratio 10 Glucose 114 H POC Glucose Calcium 6.5 L Total Bilirubin AST ALT Alkaline Phosphatase Total Protein Albumin Albumin/Globulin Ratio Urine Color [place] Urine Turbidity Cloudy Urine pH 6.0 Ur Specific [place] 1.017 Urine Protein 30 mg/dl Urine Glucose (UA) 50 Urine Ketones Tr Urine Blood Lg Urine Nitrite Neg Urine Bilirubin Mod Urine Ictotest Positive Urine Urobilinogen 4.0 Ur Leukocyte Esterase Neg Urine WBC (Auto) 24.0 H Urine RBC (Auto) 3.0 Urine Bacteria (Auto) 2+ Urine Mucus 1+ Urine Osmolality Urine Creatinine 136.8 H Urine Sodium 13 Urine Chloride 23.9 L 04/04/18 04/04/18 04/04/18 16:10 18:30 21:37 WBC RBC Hgb Hct MCV MCH MCHC RDW Plt Count Add Manual Diff Total Counted Seg Neutrophils % Seg Neuts % (Manual) Band Neutrophils % Lymphocytes % (Manual) Reactive Lymphs % (Man) Monocytes % (Manual) Eosinophils % (Manual) Basophils % (Manual) Metamyelocytes % Myelocytes % Promyelocytes % Blast Cells % Nucleated RBC % Seg Neutrophils # Man Band Neutrophils # Lymphocytes # (Manual) Abs React Lymphs (Man) Monocytes # (Manual) Eosinophils # (Manual) Basophils # (Manual) Metamyelocytes # Myelocytes # Promyelocytes # Blast Cells # WBC Morphology Hypersegmented Neuts Hyposegmented Neuts Hypogranular Neuts Smudge Cells Toxic Granulation Toxic Vacuolation Dohle Bodies Pelger-Huet Anomaly Dannie Rods Platelet Estimate Clumped Platelets Plt Clumps, EDTA Large Platelets Giant Platelets Platelet Satelliting Plt Morphology Comment RBC Morphology Dimorphic RBCs Polychromasia Hypochromasia Poikilocytosis Anisocytosis Microcytosis Macrocytosis Spherocytes Pappenheimer Bodies Sickle Cells Target Cells Tear Drop Cells Ovalocytes Helmet Cells [place] [address] Bodies [place] Rings [place] Cells Bite Cells Crenated Cell Elliptocytes Acanthocytes (Spur) Rouleaux Hemoglobin C Crystals Schistocytes Malaria parasites Slick Bodies Hem Pathologist Commnt PT INR APTT Sodium 105 L* Potassium 3.8 Chloride 74.1 L Carbon Dioxide 20 L Anion Gap 15 BUN 3 L Creatinine 0.2 L Estimated GFR > 60 BUN/Creatinine Ratio 15 Glucose 110 H POC Glucose 132 H Calcium 6.5 L Total Bilirubin AST ALT Alkaline Phosphatase Total Protein Albumin Albumin/Globulin Ratio Urine Color Urine Turbidity Urine pH Ur Specific [place] Urine Protein Urine Glucose (UA) Urine Ketones Urine Blood Urine Nitrite Urine Bilirubin Urine Ictotest Urine Urobilinogen Ur Leukocyte Esterase Urine WBC (Auto) Urine RBC (Auto) Urine Bacteria (Auto) Urine Mucus Urine Osmolality 485 Urine Creatinine Urine Sodium Urine Chloride 04/04/18 04/05/18 04/05/18 21:45 02:14 04:59 WBC 12.2 H RBC 2.59 L Hgb 10.3 L Hct 29.0 L MCV 112 H MCH 40 H MCHC 36 H RDW 14.5 Plt Count 76 L Add Manual Diff Complete Total Counted 100 Seg Neutrophils % Supervisor Cab Seg Neuts % (Manual) 76.0 H Band Neutrophils % 20.0 Lymphocytes % (Manual) 3.0 L Reactive Lymphs % (Man) 0 Monocytes % (Manual) 1.0 Eosinophils % (Manual) 0 Basophils % (Manual) 0 Metamyelocytes % 0 Myelocytes % 0 Promyelocytes % 0 Blast Cells % 0 Nucleated RBC % Not Reportable Seg Neutrophils # Man 9.3 H Band Neutrophils # 2.4 Lymphocytes # (Manual) 0.4 L Abs React Lymphs (Man) 0.0 Monocytes # (Manual) 0.1 Eosinophils # (Manual) 0.0 Basophils # (Manual) 0.0 Metamyelocytes # 0.0 Myelocytes # 0.0 Promyelocytes # 0.0 Blast Cells # 0.0 WBC Morphology Not Reportable Hypersegmented Neuts Not Reportable Hyposegmented Neuts Not Reportable Hypogranular Neuts Not Reportable Smudge Cells Not Reportable Toxic Granulation Not Reportable Toxic Vacuolation Not Reportable Dohle Bodies Not Reportable Pelger-Huet Anomaly Not Reportable Dannie Rods Not Reportable Platelet Estimate Consistent w auto Clumped Platelets Not Reportable Plt Clumps, EDTA Not Reportable Large Platelets Not Reportable Giant Platelets Not Reportable Platelet Satelliting Not Reportable Plt Morphology Comment Not Reportable RBC Morphology Not Reportable Dimorphic RBCs Not Reportable Polychromasia Not Reportable Hypochromasia Few Poikilocytosis Not Reportable Anisocytosis Not Reportable Microcytosis Not Reportable Macrocytosis 1+ Spherocytes Few Pappenheimer Bodies Not Reportable Sickle Cells Not Reportable Target Cells Few Tear Drop Cells Not Reportable Ovalocytes Not Reportable Helmet Cells Not Reportable [place] Bodies Not Reportable [place] Rings Not Reportable [place] Cells Not Reportable Bite Cells Not Reportable Crenated Cell Not Reportable Elliptocytes Not Reportable Acanthocytes (Spur) Not Reportable Rouleaux Not Reportable Hemoglobin C Crystals Not Reportable Schistocytes Not Reportable Malaria parasites Not Reportable Slick Bodies Not Reportable Hem Pathologist Commnt No PT INR APTT Sodium 104 L* 105 L* Potassium 3.6 4.3 Chloride 72.1 L 72.0 L Carbon Dioxide 21 L 22 Anion Gap 15 14 BUN 3 L 3 L Creatinine < 0.2 L < 0.2 L Estimated GFR > 60 > 60 BUN/Creatinine Ratio 15 15 Glucose 129 H 138 H POC Glucose Calcium 6.6 L 6.8 L Total Bilirubin AST ALT Alkaline Phosphatase Total Protein Albumin Albumin/Globulin Ratio Urine Color Urine Turbidity Urine pH Ur Specific [place] Urine Protein Urine Glucose (UA) Urine Ketones Urine Blood Urine Nitrite Urine Bilirubin Urine Ictotest Urine Urobilinogen Ur Leukocyte Esterase Urine WBC (Auto) Urine RBC (Auto) Urine Bacteria (Auto) Urine Mucus Urine Osmolality Urine Creatinine Urine Sodium Urine Chloride 04/05/18 04/05/18 04/05/18 04:59 04:59 09:42 WBC RBC Hgb Hct MCV MCH MCHC RDW Plt Count Add Manual Diff Total Counted Seg Neutrophils % Seg Neuts % (Manual) Band Neutrophils % Lymphocytes % (Manual) Reactive Lymphs % (Man) Monocytes % (Manual) Eosinophils % (Manual) Basophils % (Manual) Metamyelocytes % Myelocytes % Promyelocytes % Blast Cells % Nucleated RBC % Seg Neutrophils # Man Band Neutrophils # Lymphocytes # (Manual) Abs React Lymphs (Man) Monocytes # (Manual) Eosinophils # (Manual) Basophils # (Manual) Metamyelocytes # Myelocytes # Promyelocytes # Blast Cells # WBC Morphology Hypersegmented Neuts Hyposegmented Neuts Hypogranular Neuts Smudge Cells Toxic Granulation Toxic Vacuolation Dohle Bodies Pelger-Huet Anomaly Dannie Rods Platelet Estimate Clumped Platelets Plt Clumps, EDTA Large Platelets Giant Platelets Platelet Satelliting Plt Morphology Comment RBC Morphology Dimorphic RBCs Polychromasia Hypochromasia Poikilocytosis Anisocytosis Microcytosis Macrocytosis Spherocytes Pappenheimer Bodies Sickle Cells Target Cells Tear Drop Cells Ovalocytes Helmet Cells [place] [address] Bodies [place] Rings [place] Cells Bite Cells Crenated Cell Elliptocytes Acanthocytes (Spur) Rouleaux Hemoglobin C Crystals Schistocytes Malaria parasites Slick Bodies Hem Pathologist Commnt PT 25.1 H INR 2.23 H APTT 59.4 H Sodium 108 L* 110 L* Potassium 4.3 5.4 H D Chloride 75.8 L 80.5 L Carbon Dioxide 21 L 19 L Anion Gap 16 16 BUN 3 L 4 L Creatinine < 0.2 L < 0.2 L Estimated GFR > 60 > 60 BUN/Creatinine Ratio 15 20 Glucose 123 H 128 H POC Glucose Calcium 6.7 L 6.6 L Total Bilirubin 15.00 H AST 681 H ALT 86 H Alkaline Phosphatase 117 Total Protein 7.5 Albumin 2.2 L Albumin/Globulin Ratio 0.4 Urine Color Urine Turbidity Urine pH Ur Specific [place] Urine Protein Urine Glucose (UA) Urine Ketones Urine Blood Urine Nitrite Urine Bilirubin Urine Ictotest Urine Urobilinogen Ur Leukocyte Esterase Urine WBC (Auto) Urine RBC (Auto) Urine Bacteria (Auto) Urine Mucus Urine Osmolality Urine Creatinine Urine Sodium Urine Chloride <GOODWIN,LOVE A - Last Filed: 04/05/18 17:06> Assessment and Plan pt seen and examined. agree with note above. pt with likely underlying cirrhosis, presenting with suspected alc hep. signs of alc withdrawal. very high DF. on prednisolone; severe electrolyte abnormalities. overall poor prognosis but hopefully with his age and renal function being normal, he can recover with abstinence and prednisolone. Objective - Constitutional Vitals: Temp Pulse Resp BP Pulse Ox 98.7 F 108 H 22 106/64 98 04/05/18 09:29 04/05/18 10:00 04/05/18 16:00 04/04/18 09:12 04/05/18 16:00 - Labs CBC & Chem 7: 04/05/18 04:59 04/05/18 13:29 Labs: Laboratory Results - last 24 hr 04/04/18 04/04/18 04/04/18 18:30 21:37 21:45 WBC RBC Hgb Hct MCV MCH MCHC RDW Plt Count Add Manual Diff Total Counted Seg Neutrophils % Seg Neuts % (Manual) Band Neutrophils % Lymphocytes % (Manual) Reactive Lymphs % (Man) Monocytes % (Manual) Eosinophils % (Manual) Basophils % (Manual) Metamyelocytes % Myelocytes % Promyelocytes % Blast Cells % Nucleated RBC % Seg Neutrophils # Man Band Neutrophils # Lymphocytes # (Manual) Abs React Lymphs (Man) Monocytes # (Manual) Eosinophils # (Manual) Basophils # (Manual) Metamyelocytes # Myelocytes # Promyelocytes # Blast Cells # WBC Morphology Hypersegmented Neuts Hyposegmented Neuts Hypogranular Neuts Smudge Cells Toxic Granulation Toxic Vacuolation Dohle Bodies Pelger-Huet Anomaly Dannie Rods Platelet Estimate Clumped Platelets Plt Clumps, EDTA Large Platelets Giant Platelets Platelet Satelliting Plt Morphology Comment RBC Morphology Dimorphic RBCs Polychromasia Hypochromasia Poikilocytosis Anisocytosis Microcytosis Macrocytosis Spherocytes Pappenheimer Bodies Sickle Cells Target Cells Tear Drop Cells Ovalocytes Helmet Cells [place] [address] Bodies [place] Rings [place] Cells Bite Cells Crenated Cell Elliptocytes Acanthocytes (Spur) Rouleaux Hemoglobin C Crystals Schistocytes Malaria parasites Slick Bodies Hem Pathologist Commnt PT INR APTT Sodium 105 L* 104 L* Potassium 3.8 3.6 Chloride 74.1 L 72.1 L Carbon Dioxide 20 L 21 L Anion Gap 15 15 BUN 3 L 3 L Creatinine 0.2 L < 0.2 L Estimated GFR > 60 > 60 BUN/Creatinine Ratio 15 15 Glucose 110 H 129 H POC Glucose 132 H Calcium 6.5 L 6.6 L Total Bilirubin AST ALT Alkaline Phosphatase Total Protein Albumin Albumin/Globulin Ratio Hepatitis A IgM Ab Hep Bs Antigen Hep B Core IgM Ab Hepatitis C Antibody 04/05/18 04/05/18 04/05/18 02:14 04:59 04:59 WBC 12.2 H RBC 2.59 L Hgb 10.3 L Hct 29.0 L MCV 112 H MCH 40 H MCHC 36 H RDW 14.5 Plt Count 76 L Add Manual Diff Complete Total Counted 100 Seg Neutrophils % Supervisor Cab Seg Neuts % (Manual) 76.0 H Band Neutrophils % 20.0 Lymphocytes % (Manual) 3.0 L Reactive Lymphs % (Man) 0 Monocytes % (Manual) 1.0 Eosinophils % (Manual) 0 Basophils % (Manual) 0 Metamyelocytes % 0 Myelocytes % 0 Promyelocytes % 0 Blast Cells % 0 Nucleated RBC % Not Reportable Seg Neutrophils # Man 9.3 H Band Neutrophils # 2.4 Lymphocytes # (Manual) 0.4 L Abs React Lymphs (Man) 0.0 Monocytes # (Manual) 0.1 Eosinophils # (Manual) 0.0 Basophils # (Manual) 0.0 Metamyelocytes # 0.0 Myelocytes # 0.0 Promyelocytes # 0.0 Blast Cells # 0.0 WBC Morphology Not Reportable Hypersegmented Neuts Not Reportable Hyposegmented Neuts Not Reportable Hypogranular Neuts Not Reportable Smudge Cells Not Reportable Toxic Granulation Not Reportable Toxic Vacuolation Not Reportable Dohle Bodies Not Reportable Pelger-Huet Anomaly Not Reportable Dannie Rods Not Reportable Platelet Estimate Consistent w auto Clumped Platelets Not Reportable Plt Clumps, EDTA Not Reportable Large Platelets Not Reportable Giant Platelets Not Reportable Platelet Satelliting Not Reportable Plt Morphology Comment Not Reportable RBC Morphology Not Reportable Dimorphic RBCs Not Reportable Polychromasia Not Reportable Hypochromasia Few Poikilocytosis Not Reportable Anisocytosis Not Reportable Microcytosis Not Reportable Macrocytosis 1+ Spherocytes Few Pappenheimer Bodies Not Reportable Sickle Cells Not Reportable Target Cells Few Tear Drop Cells Not Reportable Ovalocytes Not Reportable Helmet Cells Not Reportable [place] [address] Bodies Not Reportable [place] Rings Not Reportable [place] Cells Not Reportable Bite Cells Not Reportable Crenated Cell Not Reportable Elliptocytes Not Reportable Acanthocytes (Spur) Not Reportable Rouleaux Not Reportable Hemoglobin C Crystals Not Reportable Schistocytes Not Reportable Malaria parasites Not Reportable Slick Bodies Not Reportable Hem Pathologist Commnt No PT 25.1 H INR 2.23 H APTT 59.4 H Sodium 105 L* Potassium 4.3 Chloride 72.0 L Carbon Dioxide 22 Anion Gap 14 BUN 3 L Creatinine < 0.2 L Estimated GFR > 60 BUN/Creatinine Ratio 15 Glucose 138 H POC Glucose Calcium 6.8 L Total Bilirubin AST ALT Alkaline Phosphatase Total Protein Albumin Albumin/Globulin Ratio Hepatitis A IgM Ab Hep Bs Antigen Hep B Core IgM Ab Hepatitis C Antibody 04/05/18 04/05/18 04/05/18 04:59 09:42 12:52 WBC RBC Hgb Hct MCV MCH MCHC RDW Plt Count Add Manual Diff Total Counted Seg Neutrophils % Seg Neuts % (Manual) Band Neutrophils % Lymphocytes % (Manual) Reactive Lymphs % (Man) Monocytes % (Manual) Eosinophils % (Manual) Basophils % (Manual) Metamyelocytes % Myelocytes % Promyelocytes % Blast Cells % Nucleated RBC % Seg Neutrophils # Man Band Neutrophils # Lymphocytes # (Manual) Abs React Lymphs (Man) Monocytes # (Manual) Eosinophils # (Manual) Basophils # (Manual) Metamyelocytes # Myelocytes # Promyelocytes # Blast Cells # WBC Morphology Hypersegmented Neuts Hyposegmented Neuts Hypogranular Neuts Smudge Cells Toxic Granulation Toxic Vacuolation Dohle Bodies Pelger-Huet Anomaly Dannie Rods Platelet Estimate Clumped Platelets Plt Clumps, EDTA Large Platelets Giant Platelets Platelet Satelliting Plt Morphology Comment RBC Morphology Dimorphic RBCs Polychromasia Hypochromasia Poikilocytosis Anisocytosis Microcytosis Macrocytosis Spherocytes Pappenheimer Bodies Sickle Cells Target Cells Tear Drop Cells Ovalocytes Helmet Cells [place] [address] Bodies [place] Rings [place] Cells Bite Cells Crenated Cell Elliptocytes Acanthocytes (Spur) Rouleaux Hemoglobin C Crystals Schistocytes Malaria parasites Slick Bodies Hem Pathologist Commnt PT INR APTT Sodium 108 L* 110 L* Potassium 4.3 5.4 H D Chloride 75.8 L 80.5 L Carbon Dioxide 21 L 19 L Anion Gap 16 16 BUN 3 L 4 L Creatinine < 0.2 L < 0.2 L Estimated GFR > 60 > 60 BUN/Creatinine Ratio 15 20 Glucose 123 H 128 H POC Glucose Calcium 6.7 L 6.6 L Total Bilirubin 15.00 H AST 681 H ALT 86 H Alkaline Phosphatase 117 Total Protein 7.5 Albumin 2.2 L Albumin/Globulin Ratio 0.4 Hepatitis A IgM Ab Non-reactive Hep Bs Antigen Non-reactive Hep B Core IgM Ab Non-reactive Hepatitis C Antibody Non-reactive 04/05/18 13:29 WBC RBC Hgb Hct MCV MCH MCHC RDW Plt Count Add Manual Diff Total Counted Seg Neutrophils % Seg Neuts % (Manual) Band Neutrophils % Lymphocytes % (Manual) Reactive Lymphs % (Man) Monocytes % (Manual) Eosinophils % (Manual) Basophils % (Manual) Metamyelocytes % Myelocytes % Promyelocytes % Blast Cells % Nucleated RBC % Seg Neutrophils # Man Band Neutrophils # Lymphocytes # (Manual) Abs React Lymphs (Man) Monocytes # (Manual) Eosinophils # (Manual) Basophils # (Manual) Metamyelocytes # Myelocytes # Promyelocytes # Blast Cells # WBC Morphology Hypersegmented Neuts Hyposegmented Neuts Hypogranular Neuts Smudge Cells Toxic Granulation Toxic Vacuolation Dohle Bodies Pelger-Huet Anomaly Dannie Rods Platelet Estimate Clumped Platelets Plt Clumps, EDTA Large Platelets Giant Platelets Platelet Satelliting Plt Morphology Comment RBC Morphology Dimorphic RBCs Polychromasia Hypochromasia Poikilocytosis Anisocytosis Microcytosis Macrocytosis Spherocytes Pappenheimer Bodies Sickle Cells Target Cells Tear Drop Cells Ovalocytes Helmet Cells [place] [address] Bodies [place] Rings [place] Cells Bite Cells Crenated Cell Elliptocytes Acanthocytes (Spur) Rouleaux Hemoglobin C Crystals Schistocytes Malaria parasites Slick Bodies Hem Pathologist Commnt PT INR APTT Sodium 113 L* Potassium 4.2 D Chloride 81.0 L Carbon Dioxide 22 Anion Gap 14 BUN 4 L Creatinine < 0.2 L Estimated GFR > 60 BUN/Creatinine Ratio 20 Glucose 151 H POC Glucose Calcium 6.8 L Total Bilirubin AST ALT Alkaline Phosphatase Total Protein Albumin Albumin/Globulin Ratio Hepatitis A IgM Ab Hep Bs Antigen Hep B Core IgM Ab Hepatitis C Antibody
[2018-04-05] MEDS ORDERED: NACL 0.9% 500 ML 500 ML ONE (12:57)
[2018-04-05] MEDS: ORAPRED PO SCH (12:58)
[2018-04-05] MEDS: LEVAQUIN 500MG/100ML 500 MG/100 ML BAG IV SCH (13:01)
[2018-04-05] MEDS ORDERED: VITAMIN K (ADULT ONLY) SUB-Q ONE (13:24)
[2018-04-05 13:44] LABS: Hepatitis B Surface Antigen Non-Reactive (Negative); Hepatitis C Virus Antibody Non-Reactive (NonReactive)
[2018-04-05 14:07] LABS: BUN/Creatinine Ratio 20; Blood Urea Nitrogen 4 mg/dL (9-20); Calcium 6.8 mg/dL (8.4-10.2); Hemolysis Index 0
[2018-04-05] MEDS: MUCINEX ER PO SCH ×2 (14:57→23:04)
[2018-04-05 20:48] LABS: BUN/Creatinine Ratio 20; Blood Urea Nitrogen 4 mg/dL (9-20); Calcium 6.8 mg/dL (8.4-10.2); Hemolysis Index 62
[2018-04-05] MEDS ORDERED: ALBURX 25% (ALBUMIN) IV ONE (21:46)
[2018-04-05 22:52] LABS: BUN/Creatinine Ratio 20; Blood Urea Nitrogen 4 mg/dL (9-20); Calcium 6.8 mg/dL (8.4-10.2); Hemolysis Index 27
[2018-04-06] MEDS ORDERED: LASIX IV NR (00:05)
[2018-04-06] MEDS: LASIX IV ONE ×2 (00:17→04:48)
[2018-04-06 02:32] LABS: BUN/Creatinine Ratio 20; Blood Urea Nitrogen 4 mg/dL (9-20); Calcium 6.9 mg/dL (8.4-10.2); Hemolysis Index 0
[2018-04-06 04:31] LABS: Basophils # (Auto) 0.1 K/mm3 (0.0-0.1); Basophils % (Auto) 0.6 % (0.0-1.8); Eosinophils % (Auto) 0.2 % (0.0-4.3); Hematocrit 25.5 % (35.5-45.6); Hemoglobin 9.2 gm/dl (11.8-15.2); Lymphocytes # (Auto) 1.1 K/mm3 (1.2-5.4); Lymphocytes % (Auto) 9.2 % (13.4-35.0); Mean Corpuscular HGB Conc 36 % (32-34); Mean Corpuscular Volume 112 fl (84-94); Monocytes # (Auto) 1.2 K/mm3 (0.0-0.8); Monocytes % (Auto) 10.1 % (0.0-7.3); Platelet Count 76 K/mm3 (140-440); Red Blood Count 2.29 M/mm3 (3.65-5.03); Red Cell Distribution Width 14.9 % (13.2-15.2)
[2018-04-06 04:32] LABS: INR 2.49 (0.87-1.13)
[2018-04-06 04:45] LABS: BUN/Creatinine Ratio 20; Blood Urea Nitrogen 4 mg/dL (9-20); Calcium 6.8 mg/dL (8.4-10.2); Hemolysis Index 1
[2018-04-06 05:05] LABS: Bilirubin,Direct 9.7 mg/dL (0-0.2)
[2018-04-06 05:06] LABS: Albumin 2.3 g/dL (3.9-5)
--- NOTE | 2018-04-06 09:08 | Progress Note ---
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 * Alcohol abuse * Hypomagnesemia * Hypocalcemia Plan: * Na remains low but stable * Patient is s/p IV Lasix overnight * Will continue diuresis w/ lasix 20mg IV w/ Albumin q12h * Calcium gluconate 2g IV * Serial Na [id number] * Fluid restriction - 1200ml/day * Alcohol cessation advised * GI/Hepatology recommendations noted * Replete lytes prn Subjective Date of service: 04/06/18 Principal diagnosis: ETOH/cirrhosis Interval history: No acute events overnight Objective - Vital Signs Vital signs: Vital Signs - 12hr 04/05/18 04/05/18 04/05/18 21:11 21:21 21:31 Temperature Pulse Rate 103 H 93 H 100 H Respiratory 20 27 H 23 Rate Blood Pressure 148/65 148/65 148/65 O2 Sat by Pulse 98 98 99 Oximetry 04/05/18 04/05/18 04/05/18 21:41 21:51 22:00 Temperature Pulse Rate 100 H 100 H 102 H Respiratory 25 H 24 22 Rate Blood Pressure 148/65 148/65 142/69 O2 Sat by Pulse 98 99 100 Oximetry 04/05/18 04/05/18 04/05/18 22:11 22:21 22:31 Temperature Pulse Rate 96 H 102 H 103 H Respiratory 27 H 17 26 H Rate Blood Pressure 142/69 142/69 142/69 O2 Sat by Pulse 100 99 100 Oximetry 04/05/18 04/05/18 04/05/18 22:41 22:51 23:01 Temperature Pulse Rate 104 H 107 H 102 H Respiratory 18 14 26 H Rate Blood Pressure 142/69 142/69 142/69 O2 Sat by Pulse 100 97 100 Oximetry 04/05/18 04/05/18 04/05/18 23:11 23:21 23:31 Temperature Pulse Rate 101 H 101 H 104 H Respiratory 16 27 H 23 Rate Blood Pressure 142/69 135/65 135/65 O2 Sat by Pulse 99 100 96 Oximetry 04/05/18 04/05/18 04/06/18 23:41 23:51 00:00 Temperature Pulse Rate 105 H 103 H 101 H Respiratory 16 27 H 22 Rate Blood Pressure 135/65 135/65 125/63 O2 Sat by Pulse 99 100 99 Oximetry 04/06/18 04/06/18 04/06/18 00:11 00:21 00:31 Temperature Pulse Rate 103 H 96 H 102 H Respiratory 32 H 29 H 21 Rate Blood Pressure 125/63 125/63 125/63 O2 Sat by Pulse 96 100 98 Oximetry 04/06/18 04/06/18 04/06/18 00:41 00:51 01:01 Temperature Pulse Rate 102 H 104 H 101 H Respiratory 10 L 20 33 H Rate Blood Pressure 125/63 125/63 125/63 O2 Sat by Pulse 100 80 L 97 Oximetry 04/06/18 04/06/18 04/06/18 01:11 01:21 01:31 Temperature Pulse Rate 106 H 104 H 102 H Respiratory 18 25 H 26 H Rate Blood Pressure 125/63 125/63 125/63 O2 Sat by Pulse 96 96 96 Oximetry 04/06/18 04/06/18 04/06/18 01:41 01:51 02:00 Temperature Pulse Rate 101 H 104 H 100 H Respiratory 28 H 24 21 Rate Blood Pressure 125/63 125/63 127/58 O2 Sat by Pulse 98 99 98 Oximetry 04/06/18 04/06/18 04/06/18 02:11 02:21 02:31 Temperature Pulse Rate 96 H 103 H 99 H Respiratory 28 H 17 23 Rate Blood Pressure 127/58 127/58 127/58 O2 Sat by Pulse 99 97 99 Oximetry 04/06/18 04/06/18 04/06/18 02:41 02:51 03:01 Temperature Pulse Rate 103 H 104 H 99 H Respiratory 27 H 14 18 Rate Blood Pressure 127/58 127/58 127/58 O2 Sat by Pulse 99 98 95 Oximetry 04/06/18 04/06/18 04/06/18 03:11 03:21 03:31 Temperature Pulse Rate 104 H 109 H 102 H Respiratory 24 17 24 Rate Blood Pressure 127/58 127/58 127/58 O2 Sat by Pulse 97 99 98 Oximetry 04/06/18 04/06/18 04/06/18 03:41 03:51 04:00 Temperature Pulse Rate 98 H 101 H Respiratory 29 H 31 H 11 L Rate Blood Pressure 127/58 127/58 O2 Sat by Pulse 98 98 98 Oximetry 04/06/18 04/06/18 04/06/18 04:01 04:11 04:21 Temperature Pulse Rate 98 H 100 H 96 H Respiratory 29 H 31 H 26 H Rate Blood Pressure 115/54 115/54 115/54 O2 Sat by Pulse 95 99 99 Oximetry 04/06/18 04/06/18 04/06/18 04:31 04:41 04:51 Temperature Pulse Rate 94 H 94 H 104 H Respiratory 31 H 26 H 35 H Rate Blood Pressure 115/54 115/54 115/54 O2 Sat by Pulse 98 97 99 Oximetry 04/06/18 04/06/18 04/06/18 05:01 05:02 05:11 Temperature 98.7 F Pulse Rate 107 H 104 H Respiratory 22 35 H Rate Blood Pressure 115/54 115/54 O2 Sat by Pulse 100 98 Oximetry 04/06/18 04/06/18 04/06/18 05:21 05:31 05:41 Temperature Pulse Rate 106 H 99 H 115 H Respiratory 25 H 27 H 15 Rate Blood Pressure 115/54 115/54 115/54 O2 Sat by Pulse 98 97 96 Oximetry 04/06/18 04/06/18 04/06/18 05:51 06:01 06:11 Temperature Pulse Rate Respiratory 33 H Rate Blood Pressure 115/54 154/85 154/85 O2 Sat by Pulse 97 98 97 Oximetry 04/06/18 04/06/18 04/06/18 06:21 06:31 06:41 Temperature Pulse Rate 105 H Respiratory 32 H Rate Blood Pressure 154/85 154/85 154/85 O2 Sat by Pulse 99 98 99 Oximetry 04/06/18 04/06/18 04/06/18 06:51 07:01 07:11 Temperature Pulse Rate 108 H 109 H 94 H Respiratory 16 12 30 H Rate Blood Pressure 154/85 154/85 154/85 O2 Sat by Pulse 99 96 98 Oximetry 04/06/18 04/06/18 04/06/18 07:21 07:31 07:41 Temperature Pulse Rate 100 H 102 H Respiratory 56 H 47 H 39 H Rate Blood Pressure 154/85 154/85 154/85 O2 Sat by Pulse 98 99 99 Oximetry 04/06/18 04/06/18 07:51 08:30 Temperature 98.2 F Pulse Rate 99 H Respiratory 30 H Rate Blood Pressure 154/85 O2 Sat by Pulse 99 Oximetry - General Appearance General appearance: well-developed, well-nourished EENT: sclera incterus Respiratory: Present: Decreased Breath Sounds Cardiology: regular, S1S2 Gastrointestinal: no tenderness, no distended, obese Integumentary: warm and dry Musculoskeletal: other (2+ edema) Psychiatric: cooperative - Lab 04/06/18 03:50 04/06/18 03:50 Most recent lab results Calcium 6.8 mg/dL (8.4-10.2) L 04/06/18 03:50 Magnesium 1.60 mg/dL (1.7-2.3) L 04/04/18 03:00 Urine Creatinine 136.8 mg/dL (0.1-20.0) H 04/04/18 16:10 Urine Sodium 13 mmol/L 04/04/18 16:10 Medications & Allergies - Medications Allergies/Adverse Reactions: Allergies No Known Allergies Allergy (Verified 04/04/18 04:27) Home Medications: Home Medications Medication Instructions Recorded Confirmed Last Taken Type Multivitamin [One Daily 1 each PO DAILY 04/04/18 04/04/18 Unknown History Multivitamin] Active Medications: Generic Name Dose Route Start Last Admin Trade Name Yoanna PRN Reason Stop Dose Admin Folic Acid 1 mg 04/04/18 10:00 04/05/18 10:22 Folvite PO 1 mg QDAY DENISE Administration Guaifenesin 600 mg 04/05/18 14:00 04/05/18 23:04 Mucinex Er PO 600 mg BID DENISE Administration Levofloxacin/Dextrose 500 mg in 100 mls @ 100 mls/hr 04/05/18 14:00 04/05/18 13:01 Levaquin 500mg/100ml IV 100 mls/hr Q24HR DENISE Administration Protocol Lorazepam 4 mg 04/04/18 06:32 Ativan IV Q1HR PRN CIWA-Ar 16-25 Morphine Sulfate 2 mg 04/04/18 12:00 04/04/18 11:35 Morphine IV 2 mg Q4H PRN Administration Pain, Moderate (4-6) Ondansetron HCl 4 mg 04/04/18 06:26 Zofran IV Q8H PRN Nausea And Vomiting Prednisolone Sodium Phosphate 40 mg 04/04/18 16:00 04/05/18 12:58 Orapred PO 40 mg DAILY DENISE Administration Sodium Bicarbonate 1,300 mg 04/05/18 10:00 04/05/18 23:03 Sodium Bicarbonate PO 1,300 mg BID DENISE Administration Sodium Chloride 10 ml 04/04/18 10:00 04/05/18 23:05 Sodium Chloride Flush Syringe 10 Ml IV 10 ml BID DENISE Administration Sodium Chloride 10 ml 04/04/18 06:26 Sodium Chloride Flush Syringe 10 Ml IV PRN PRN LINE FLUSH Thiamine HCl 100 mg 04/04/18 10:00 04/05/18 10:22 Vitamin B-1 PO 100 mg DAILY DENISE Administration
[2018-04-06] MEDS: LEVAQUIN 500MG/100ML 500 MG/100 ML BAG IV SCH (10:13)
[2018-04-06] MEDS: MUCINEX ER PO SCH ×2 (10:14→22:01)
[2018-04-06] MEDS: ORAPRED PO SCH (10:14)
[2018-04-06] MEDS: SODIUM BICARBONATE PO SCH ×2 (10:14→22:00)
[2018-04-06] MEDS: VITAMIN B-1 PO SCH (10:14)
[2018-04-06] MEDS: FOLVITE PO SCH (10:14)
[2018-04-06] MEDS: SODIUM CHLORIDE FLUSH SYRINGE 10 ML IV SCH ×2 (10:15→22:01)
--- NOTE | 2018-04-06 10:47 | Progress Note ---
Assessment and Plan Assessment and plan: Severe hyponatremia, symptomatic; secondary to alcohol abuse/beer potomania. Sodium improving. Continue 3% normal saline per nephrology. Follow-up BMP Hyperbilirubinemia. Abdominal ultrasound showed hepatic steatosis; no evidence of obstruction or lesion. LFTs trending upward. Peripheral edema. Acute alcoholic hepatitis +/- liver cirrhosis. Laboratory suggestive of cirrhosis with pancytopenia and elevated INR EtOH abuse. Continue CIWA protocol. Coagulopathy. Probable cirrhosis. Vitamin K when necessary. Thrombocytopenia. Etiology likely secondary to liver disease. Hypomagnesemia. Replete magnesium. History Interval history: No new issues overnight. Hospitalist Physical - Constitutional Vitals: Temp Pulse Resp BP Pulse Ox 98.2 F 113 H 13 147/75 95 04/06/18 08:30 04/06/18 08:51 04/06/18 08:51 04/06/18 08:51 04/06/18 08:51 General appearance: Present: no acute distress, well-nourished - EENT Eyes: Present: PERRL, EOM intact ENT: hearing intact, clear oral mucosa, dentition normal - Neck Neck: Present: supple, normal ROM - Respiratory Respiratory effort: normal Respiratory: bilateral: CTA - Cardiovascular Rhythm: regular Heart Sounds: Present: S1 & S2. Absent: gallop, rub - Extremities Extremities: no ischemia, No edema, Full ROM - Abdominal General gastrointestinal: soft, non-tender, non-distended, normal bowel sounds - Integumentary Integumentary: Present: clear, warm, dry - Neurologic Neurologic: CNII-XII intact, moves all extremities Results - Labs CBC & Chem 7: 04/06/18 03:50 04/06/18 03:50 Labs: Laboratory Last Values WBC 12.0 K/mm3 (4.5-11.0) H 04/06/18 03:50 RBC 2.29 M/mm3 (3.65-5.03) L 04/06/18 03:50 Hgb 9.2 gm/dl (11.8-15.2) L 04/06/18 03:50 Hct 25.5 % (35.5-45.6) L 04/06/18 03:50 MCV 112 fl (84-94) H 04/06/18 03:50 MCH 40 pg (28-32) H 04/06/18 03:50 MCHC 36 % (32-34) H 04/06/18 03:50 RDW 14.9 % (13.2-15.2) 04/06/18 03:50 Plt Count 76 K/mm3 (140-440) L 04/06/18 03:50 Lymph % (Auto) 9.2 % (13.4-35.0) L 04/06/18 03:50 [place] % (Auto) 10.1 % (0.0-7.3) H 04/06/18 03:50 Eos % (Auto) 0.2 % (0.0-4.3) 04/06/18 03:50 Baso % (Auto) 0.6 % (0.0-1.8) 04/06/18 03:50 Lymph # 1.1 K/mm3 (1.2-5.4) L 04/06/18 03:50 [place] # 1.2 K/mm3 (0.0-0.8) H 04/06/18 03:50 Eos # 0.0 K/mm3 (0.0-0.4) 04/06/18 03:50 Baso # 0.1 K/mm3 (0.0-0.1) 04/06/18 03:50 Add Manual Diff Complete 04/05/18 04:59 Total Counted 100 04/05/18 04:59 Seg Neutrophils % 79.9 % (40.0-70.0) H 04/06/18 03:50 Seg Neuts % (Manual) 76.0 % (40.0-70.0) H 04/05/18 04:59 Band Neutrophils % 20.0 % 04/05/18 04:59 Lymphocytes % (Manual) 3.0 % (13.4-35.0) L 04/05/18 04:59 Reactive Lymphs % (Man) 0 % 04/05/18 04:59 Monocytes % (Manual) 1.0 % (0.0-7.3) 04/05/18 04:59 Eosinophils % (Manual) 0 % (0.0-4.3) 04/05/18 04:59 Basophils % (Manual) 0 % (0.0-1.8) 04/05/18 04:59 Metamyelocytes % 0 % 04/05/18 04:59 Myelocytes % 0 % 04/05/18 04:59 Promyelocytes % 0 % 04/05/18 04:59 Blast Cells % 0 % 04/05/18 04:59 Nucleated RBC % Not Reportable 04/05/18 04:59 Seg Neutrophils # 9.6 K/mm3 (1.8-7.7) H 04/06/18 03:50 Seg Neutrophils # Man 9.3 K/mm3 (1.8-7.7) H 04/05/18 04:59 Band Neutrophils # 2.4 K/mm3 04/05/18 04:59 Lymphocytes # (Manual) 0.4 K/mm3 (1.2-5.4) L 04/05/18 04:59 Abs React Lymphs (Man) 0.0 K/mm3 04/05/18 04:59 Monocytes # (Manual) 0.1 K/mm3 (0.0-0.8) 04/05/18 04:59 Eosinophils # (Manual) 0.0 K/mm3 (0.0-0.4) 04/05/18 04:59 Basophils # (Manual) 0.0 K/mm3 (0.0-0.1) 04/05/18 04:59 Metamyelocytes # 0.0 K/mm3 04/05/18 04:59 Myelocytes # 0.0 K/mm3 04/05/18 04:59 Promyelocytes # 0.0 K/mm3 04/05/18 04:59 Blast Cells # 0.0 K/mm3 04/05/18 04:59 WBC Morphology Not Reportable 04/05/18 04:59 Hypersegmented Neuts Not Reportable 04/05/18 04:59 Hyposegmented Neuts Not Reportable 04/05/18 04:59 Hypogranular Neuts Not Reportable 04/05/18 04:59 Smudge Cells Not Reportable 04/05/18 04:59 Toxic Granulation Not Reportable 04/05/18 04:59 Toxic Vacuolation Not Reportable 04/05/18 04:59 Dohle Bodies Not Reportable 04/05/18 04:59 Pelger-Huet Anomaly Not Reportable 04/05/18 04:59 Dannie Rods Not Reportable 04/05/18 04:59 Platelet Estimate Consistent w auto 04/05/18 04:59 Clumped Platelets Not Reportable 04/05/18 04:59 Plt Clumps, EDTA Not Reportable 04/05/18 04:59 Large Platelets Not Reportable 04/05/18 04:59 Giant Platelets Not Reportable 04/05/18 04:59 Platelet Satelliting Not Reportable 04/05/18 04:59 Plt Morphology Comment Not Reportable 04/05/18 04:59 RBC Morphology Not Reportable 04/05/18 04:59 Dimorphic RBCs Not Reportable 04/05/18 04:59 Polychromasia Not Reportable 04/05/18 04:59 Hypochromasia Few 04/05/18 04:59 Poikilocytosis Not Reportable 04/05/18 04:59 Anisocytosis Not Reportable 04/05/18 04:59 Microcytosis Not Reportable 04/05/18 04:59 Macrocytosis 1+ 04/05/18 04:59 Spherocytes Few 04/05/18 04:59 Pappenheimer Bodies Not Reportable 04/05/18 04:59 Sickle Cells Not Reportable 04/05/18 04:59 Target Cells Few 04/05/18 04:59 Tear Drop Cells Not Reportable 04/05/18 04:59 Ovalocytes Not Reportable 04/05/18 04:59 Helmet Cells Not Reportable 04/05/18 04:59 [place] Bodies Not Reportable 04/05/18 04:59 [place] Rings Not Reportable 04/05/18 04:59 [place] Cells Not Reportable 04/05/18 04:59 Bite Cells Not Reportable 04/05/18 04:59 Crenated Cell Not Reportable 04/05/18 04:59 Elliptocytes Not Reportable 04/05/18 04:59 Acanthocytes (Spur) Not Reportable 04/05/18 04:59 Rouleaux Not Reportable 04/05/18 04:59 Hemoglobin C Crystals Not Reportable 04/05/18 04:59 Schistocytes Not Reportable 04/05/18 04:59 Malaria parasites Not Reportable 04/05/18 04:59 Slick Bodies Not Reportable 04/05/18 04:59 Hem Pathologist Commnt No 04/05/18 04:59 PT 27.3 Sec. (12.2-14.9) H 04/06/18 03:50 INR 2.49 (0.87-1.13) H 04/06/18 03:50 APTT 59.4 Sec. (24.2-36.6) H 04/05/18 04:59 Sodium 113 mmol/L (137-145) L* 04/06/18 03:50 Potassium 3.8 mmol/L (3.6-5.0) 04/06/18 03:50 Chloride 80.2 mmol/L (98-107) L 04/06/18 03:50 Carbon Dioxide 24 mmol/L (22-30) 04/06/18 03:50 Anion Gap 13 mmol/L 04/06/18 03:50 BUN 4 mg/dL (9-20) L 04/06/18 03:50 Creatinine < 0.2 mg/dL (0.8-1.5) L 04/06/18 03:50 Estimated GFR > 60 ml/min 04/06/18 03:50 BUN/Creatinine Ratio 20 % 04/06/18 03:50 Glucose 117 mg/dL (75-100) H 04/06/18 03:50 POC Glucose 132 (70-105) H 04/04/18 21:37 Osmolality 270 Mosm/kg 04/04/18 07:55 Calcium 6.8 mg/dL (8.4-10.2) L 04/06/18 03:50 Magnesium 1.60 mg/dL (1.7-2.3) L 04/04/18 03:00 Total Bilirubin 15.30 mg/dL (0.1-1.2) H 04/06/18 03:50 Direct Bilirubin 9.7 mg/dL (0-0.2) H 04/06/18 03:50 Indirect Bilirubin 5.6 mg/dL 04/06/18 03:50 AST 610 units/L (5-40) H 04/06/18 03:50 ALT 82 units/L (7-56) H 04/06/18 03:50 Alkaline Phosphatase 99 units/L (35-129) 04/06/18 03:50 Ammonia 93.0 umol/L (25-60) H 04/06/18 08:36 NT-Pro-B Natriuret Pep 519.7 pg/mL (0-450) H 04/04/18 03:00 Total Protein 7.0 g/dL (6.3-8.2) 04/06/18 03:50 Albumin 2.3 g/dL (3.9-5) L 04/06/18 03:50 Albumin/Globulin Ratio 0.5 % 04/06/18 03:50 Lipase 121 units/L (13-60) H 04/04/18 03:00 TSH 2.320 mlU/mL (0.270-4.200) 04/04/18 03:00 Free T4 1.25 ng/dL (0.76-1.46) 04/04/18 03:00 Urine Color [place] (Yellow) 04/04/18 16:10 Urine Turbidity Cloudy (Clear) 04/04/18 16:10 Urine pH 6.0 (5.0-7.0) 04/04/18 16:10 Ur Specific [place] 1.017 (1.003-1.030) 04/04/18 16:10 Urine Protein 30 mg/dl mg/dL (Negative) 04/04/18 16:10 Urine Glucose (UA) 50 mg/dL (Negative) 04/04/18 16:10 Urine Ketones Tr mg/dL (Negative) 04/04/18 16:10 Urine Blood Lg (Negative) 04/04/18 16:10 Urine Nitrite Neg (Negative) 04/04/18 16:10 Urine Bilirubin Mod (Negative) 04/04/18 16:10 Urine Ictotest Positive (Negative) 04/04/18 16:10 Urine Urobilinogen 4.0 mg/dL (<2.0) 04/04/18 16:10 Ur Leukocyte Esterase Neg (Negative) 04/04/18 16:10 Urine WBC (Auto) 24.0 /HPF (0.0-6.0) H 04/04/18 16:10 Urine RBC (Auto) 3.0 /HPF (0.0-6.0) 04/04/18 16:10 Urine Bacteria (Auto) 2+ /HPF (Negative) 04/04/18 16:10 Urine Mucus 1+ /HPF 04/04/18 16:10 Urine Osmolality 485 Mosm/kg 04/04/18 16:10 Urine Creatinine 136.8 mg/dL (0.1-20.0) H 04/04/18 16:10 Urine Sodium 13 mmol/L 04/04/18 16:10 Urine Chloride 23.9 mmolL (110-250) L 04/04/18 16:10 Plasma/Serum Alcohol 0.20 % (0-0.07) H 04/04/18 03:00 Hepatitis A IgM Ab Non-reactive (NonReactive) 04/05/18 12:52 Hep Bs Antigen Non-reactive (Negative) 04/05/18 12:52 Hep B Core IgM Ab Non-reactive (NonReactive) 04/05/18 12:52 Hepatitis C Antibody Non-reactive (NonReactive) 04/05/18 12:52 Blood Type O POSITIVE 04/04/18 03:00 Antibody Screen Negative 04/04/18 03:00
[2018-04-06] MEDS ORDERED: CALCIUM GLUCONATE 2,000 MG in NACL 0.9% 100 ML IV ONE (11:00)
[2018-04-06] MEDS: LASIX IV SCH ×2 (12:23→23:53)
[2018-04-06] MEDS: ALBURX 25% (ALBUMIN) IV SCH ×2 (12:25→23:54)
--- NOTE | 2018-04-06 13:47 | Gastroenterology Progress Note ---
<LYNDON DE LUNA - Last Filed: 04/06/18 13:55> Assessment and Plan 1.jaundice/hyperbilirubinemia 2.ETOH abuse 3.hyponatremia -temp 99.4 -WBC 12.0 -H/H 9.2/25.5-no active signs of bleeding -hepatitis panel negative -Plt 76, INR 2.49-trending up despite vit K yesterday -LFTs (T.tushar 15.30 AST 610, ALT 82, alk phos 82) -abd U/S-showed hepatic steatosis; no evidence of obstruction or lesion -etiology- likely acute alcoholic hepatitis; underlying cirrhosis unable to be excluded (labs suggestive given low plt and elevated INR) -clinically, patient has no overt encephalopathy. Denies abd pain, N/V, or active signs of bleeding. -discriminant function= 72 (indicative of high short-term mortality)-overall poor prognosis -continue Prednisolone -continue empiric antibiotics (levaquin) -alcohol cessation-monitor for signs of withdrawal -continue to trend labs and supportive care -electrolyte management per primary team -will follow Subjective Date of service: 04/06/18 Principal diagnosis: ETOH/cirrhosis Interval history: No acute distress. Denies abd pain, N/V, or signs of bleeding. Objective - Constitutional Vitals: Temp Pulse Resp BP Pulse Ox 99.4 F 113 H 13 147/75 95 04/06/18 12:07 04/06/18 08:51 04/06/18 08:51 04/06/18 08:51 04/06/18 08:51 General appearance: no acute distress - EENT Eyes: scleral icterus - Respiratory Respiratory: bilateral: CTA - Cardiovascular Rhythm: other (tachycardia) - Extremities Extremity abnormal: edema - Gastrointestinal General gastrointestinal: Present: soft, non-tender, non-distended, normal bowel sounds, other (obese) - Integumentary Integumentary: Present: jaundice - Neurologic Neurological: alert and oriented x3 - Labs CBC & Chem 7: 04/06/18 03:50 04/06/18 03:50 Labs: Laboratory Results - last 24 hr 04/05/18 04/05/18 04/05/18 12:52 13:29 20:30 WBC RBC Hgb Hct MCV MCH MCHC RDW Plt Count Lymph % (Auto) [place] % (Auto) Eos % (Auto) Baso % (Auto) Lymph # [place] # Eos # Baso # Seg Neutrophils % Seg Neutrophils # PT INR Sodium 113 L* 112 L* Potassium 4.2 D 4.7 Chloride 81.0 L 80.8 L Carbon Dioxide 22 22 Anion Gap 14 14 BUN 4 L 4 L Creatinine < 0.2 L < 0.2 L Estimated GFR > 60 > 60 BUN/Creatinine Ratio 20 20 Glucose 151 H 149 H Calcium 6.8 L 6.8 L Total Bilirubin Direct Bilirubin Indirect Bilirubin AST ALT Alkaline Phosphatase Ammonia Total Protein Albumin Albumin/Globulin Ratio Hepatitis A IgM Ab Non-reactive Hep Bs Antigen Non-reactive Hep B Core IgM Ab Non-reactive Hepatitis C Antibody Non-reactive 04/05/18 04/06/18 04/06/18 22:25 01:55 03:50 WBC RBC Hgb Hct MCV MCH MCHC RDW Plt Count Lymph % (Auto) [place] % (Auto) Eos % (Auto) Baso % (Auto) Lymph # [place] # Eos # Baso # Seg Neutrophils % Seg Neutrophils # PT INR Sodium 113 L* 116 L* 113 L* Potassium 4.3 3.9 3.8 Chloride 81.0 L 82.4 L 80.2 L Carbon Dioxide 24 25 24 Anion Gap 12 12 13 BUN 4 L 4 L 4 L Creatinine < 0.2 L 0.2 L < 0.2 L Estimated GFR > 60 > 60 > 60 BUN/Creatinine Ratio 20 20 20 Glucose 137 H 126 H 117 H Calcium 6.8 L 6.9 L 6.8 L Total Bilirubin Direct Bilirubin Indirect Bilirubin AST ALT Alkaline Phosphatase Ammonia Total Protein Albumin Albumin/Globulin Ratio Hepatitis A IgM Ab Hep Bs Antigen Hep B Core IgM Ab Hepatitis C Antibody 04/06/18 04/06/18 04/06/18 03:50 03:50 03:50 WBC 12.0 H RBC 2.29 L Hgb 9.2 L Hct 25.5 L MCV 112 H MCH 40 H MCHC 36 H RDW 14.9 Plt Count 76 L Lymph % (Auto) 9.2 L [place] % (Auto) 10.1 H Eos % (Auto) 0.2 Baso % (Auto) 0.6 Lymph # 1.1 L [place] # 1.2 H Eos # 0.0 Baso # 0.1 Seg Neutrophils % 79.9 H Seg Neutrophils # 9.6 H PT 27.3 H INR 2.49 H Sodium Potassium Chloride Carbon Dioxide Anion Gap BUN Creatinine Estimated GFR BUN/Creatinine Ratio Glucose Calcium Total Bilirubin 15.30 H Direct Bilirubin 9.7 H Indirect Bilirubin 5.6 AST 610 H ALT 82 H Alkaline Phosphatase 99 Ammonia Total Protein 7.0 Albumin 2.3 L Albumin/Globulin Ratio 0.5 Hepatitis A IgM Ab Hep Bs Antigen Hep B Core IgM Ab Hepatitis C Antibody 04/06/18 08:36 WBC RBC Hgb Hct MCV MCH MCHC RDW Plt Count Lymph % (Auto) [place] % (Auto) Eos % (Auto) Baso % (Auto) Lymph # [place] # Eos # Baso # Seg Neutrophils % Seg Neutrophils # PT INR Sodium Potassium Chloride Carbon Dioxide Anion Gap BUN Creatinine Estimated GFR BUN/Creatinine Ratio Glucose Calcium Total Bilirubin Direct Bilirubin Indirect Bilirubin AST ALT Alkaline Phosphatase Ammonia 93.0 H Total Protein Albumin Albumin/Globulin Ratio Hepatitis A IgM Ab Hep Bs Antigen Hep B Core IgM Ab Hepatitis C Antibody <LOVE GOODWIN - Last Filed: 04/06/18 19:35> Assessment and Plan Pt seen and examined. Agree with note above. Objective - Constitutional Vitals: Temp Pulse Resp BP Pulse Ox 98.7 F 98 H 15 157/86 96 04/06/18 19:34 04/06/18 18:20 04/06/18 18:20 04/06/18 18:20 04/06/18 18:20 - Labs CBC & Chem 7: 04/06/18 03:50 04/06/18 14:52 Labs: Laboratory Results - last 24 hr 04/05/18 04/05/18 04/06/18 20:30 22:25 01:55 WBC RBC Hgb Hct MCV MCH MCHC RDW Plt Count Lymph % (Auto) [place] % (Auto) Eos % (Auto) Baso % (Auto) Lymph # [place] # Eos # Baso # Seg Neutrophils % Seg Neutrophils # PT INR Sodium 112 L* 113 L* 116 L* Potassium 4.7 4.3 3.9 Chloride 80.8 L 81.0 L 82.4 L Carbon Dioxide 22 24 25 Anion Gap 14 12 12 BUN 4 L 4 L 4 L Creatinine < 0.2 L < 0.2 L 0.2 L Estimated GFR > 60 > 60 > 60 BUN/Creatinine Ratio 20 20 20 Glucose 149 H 137 H 126 H Calcium 6.8 L 6.8 L 6.9 L Total Bilirubin Direct Bilirubin Indirect Bilirubin AST ALT Alkaline Phosphatase Ammonia Total Protein Albumin Albumin/Globulin Ratio 04/06/18 04/06/18 04/06/18 03:50 03:50 03:50 WBC 12.0 H RBC 2.29 L Hgb 9.2 L Hct 25.5 L MCV 112 H MCH 40 H MCHC 36 H RDW 14.9 Plt Count 76 L Lymph % (Auto) 9.2 L [place] % (Auto) 10.1 H Eos % (Auto) 0.2 Baso % (Auto) 0.6 Lymph # 1.1 L [place] # 1.2 H Eos # 0.0 Baso # 0.1 Seg Neutrophils % 79.9 H Seg Neutrophils # 9.6 H PT INR Sodium 113 L* Potassium 3.8 Chloride 80.2 L Carbon Dioxide 24 Anion Gap 13 BUN 4 L Creatinine < 0.2 L Estimated GFR > 60 BUN/Creatinine Ratio 20 Glucose 117 H Calcium 6.8 L Total Bilirubin 15.30 H Direct Bilirubin 9.7 H Indirect Bilirubin 5.6 AST 610 H ALT 82 H Alkaline Phosphatase 99 Ammonia Total Protein 7.0 Albumin 2.3 L Albumin/Globulin Ratio 0.5 04/06/18 04/06/18 04/06/18 03:50 08:36 14:52 WBC RBC Hgb Hct MCV MCH MCHC RDW Plt Count Lymph % (Auto) [place] % (Auto) Eos % (Auto) Baso % (Auto) Lymph # [place] # Eos # Baso # Seg Neutrophils % Seg Neutrophils # PT 27.3 H INR 2.49 H Sodium 115 L* Potassium 4.0 Chloride 80.4 L Carbon Dioxide 24 Anion Gap 15 BUN 4 L Creatinine < 0.2 L Estimated GFR > 60 BUN/Creatinine Ratio 20 Glucose 131 H Calcium 7.4 L Total Bilirubin Direct Bilirubin Indirect Bilirubin AST ALT Alkaline Phosphatase Ammonia 93.0 H Total Protein Albumin Albumin/Globulin Ratio
[2018-04-06 15:27] LABS: BUN/Creatinine Ratio 20; Blood Urea Nitrogen 4 mg/dL (9-20); Calcium 7.4 mg/dL (8.4-10.2); Hemolysis Index 4
[2018-04-06 20:07] LABS: BUN/Creatinine Ratio 20; Blood Urea Nitrogen 4 mg/dL (9-20); Calcium 7.3 mg/dL (8.4-10.2); Hemolysis Index 0
[2018-04-06 22:12] LABS: BUN/Creatinine Ratio 20; Blood Urea Nitrogen 4 mg/dL (9-20); Calcium 7.3 mg/dL (8.4-10.2); Hemolysis Index 0
[2018-04-06] MEDS: ATIVAN IV PRN (23:54)
[2018-04-07 05:48] LABS: Alanine Aminotransferase 74 units/L (7-56); Albumin 2.5 g/dL (3.9-5); BUN/Creatinine Ratio 25; Blood Urea Nitrogen 5 mg/dL (9-20); Calcium 7.4 mg/dL (8.4-10.2); Hemolysis Index 25
--- NOTE | 2018-04-07 09:04 | Progress Note ---
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 * Alcohol abuse * Hypomagnesemia * Hypocalcemia Plan: * Na gradually improving * Continue diuresis w/ lasix 20mg IV w/ Albumin q12h * Fluid restriction - 1200ml/day * Alcohol cessation advised * GI/Hepatology recommendations noted * Replete lytes prn Subjective Date of service: 04/07/18 Principal diagnosis: ETOH/cirrhosis Interval history: No acute events overnight. Seems more confused this AM Objective - Vital Signs Vital signs: Vital Signs - 12hr 04/06/18 04/06/18 04/06/18 21:10 21:20 21:30 Temperature Pulse Rate 102 H 101 H 102 H Pulse Rate [ From Monitor] Respiratory 27 H 26 H 15 Rate Blood Pressure 129/69 129/69 129/69 O2 Sat by Pulse 99 98 98 Oximetry 04/06/18 04/06/18 04/06/18 21:40 21:50 22:00 Temperature Pulse Rate 103 H 99 H 92 H Pulse Rate [ From Monitor] Respiratory 22 18 25 H Rate Blood Pressure 129/69 129/69 129/58 O2 Sat by Pulse 98 97 96 Oximetry 04/06/18 04/06/18 04/06/18 22:10 22:20 22:30 Temperature Pulse Rate 103 H 102 H 97 H Pulse Rate [ From Monitor] Respiratory 35 H 36 H 26 H Rate Blood Pressure 129/58 129/58 129/58 O2 Sat by Pulse 99 99 99 Oximetry 04/06/18 04/06/18 04/06/18 22:40 22:50 23:00 Temperature Pulse Rate 97 H 96 H 105 H Pulse Rate [ From Monitor] Respiratory 26 H 26 H 18 Rate Blood Pressure 129/58 129/58 137/95 O2 Sat by Pulse 97 97 97 Oximetry 04/06/18 04/06/18 04/06/18 23:10 23:16 23:17 Temperature 99.4 F Pulse Rate 106 H 109 H Pulse Rate [ From Monitor] Respiratory 17 17 Rate Blood Pressure 137/95 137/95 O2 Sat by Pulse 99 99 Oximetry 04/06/18 04/06/18 04/06/18 23:20 23:30 23:40 Temperature Pulse Rate 105 H 105 H 104 H Pulse Rate [ From Monitor] Respiratory 16 14 23 Rate Blood Pressure 137/95 137/95 137/95 O2 Sat by Pulse 99 99 97 Oximetry 04/06/18 04/07/18 04/07/18 23:50 00:00 00:10 Temperature Pulse Rate 105 H 106 H 111 H Pulse Rate [ 106 H From Monitor] Respiratory 19 26 H 17 Rate Blood Pressure 137/95 147/76 147/76 O2 Sat by Pulse 99 99 98 Oximetry 04/07/18 04/07/18 04/07/18 00:20 00:30 00:40 Temperature Pulse Rate 102 H 103 H 104 H Pulse Rate [ From Monitor] Respiratory 34 H 27 H 30 H Rate Blood Pressure 147/76 147/76 147/76 O2 Sat by Pulse 98 96 97 Oximetry 04/07/18 04/07/18 04/07/18 00:50 01:00 01:10 Temperature Pulse Rate 108 H 103 H 106 H Pulse Rate [ From Monitor] Respiratory 32 H 26 H 32 H Rate Blood Pressure 147/76 127/57 127/57 O2 Sat by Pulse 96 96 Oximetry 04/07/18 04/07/18 04/07/18 01:20 01:30 01:40 Temperature Pulse Rate 107 H 106 H Pulse Rate [ From Monitor] Respiratory 45 H 29 H 30 H Rate Blood Pressure 127/57 127/57 127/57 O2 Sat by Pulse 97 Oximetry 04/07/18 04/07/18 04/07/18 01:50 02:00 02:10 Temperature Pulse Rate 107 H 107 H 103 H Pulse Rate [ From Monitor] Respiratory 29 H 31 H 20 Rate Blood Pressure 127/57 138/66 138/66 O2 Sat by Pulse 94 97 Oximetry 04/07/18 04/07/18 04/07/18 02:20 02:30 02:40 Temperature Pulse Rate 109 H 108 H Pulse Rate [ From Monitor] Respiratory 16 Rate Blood Pressure 138/66 138/66 115/65 O2 Sat by Pulse 98 97 Oximetry 04/07/18 04/07/18 04/07/18 02:50 03:00 03:10 Temperature Pulse Rate 103 H 105 H 104 H Pulse Rate [ From Monitor] Respiratory 30 H 31 H 28 H Rate Blood Pressure 115/65 106/67 106/67 O2 Sat by Pulse 99 95 96 Oximetry 04/07/18 04/07/18 04/07/18 03:20 03:30 03:35 Temperature 98.8 F Pulse Rate 105 H 109 H Pulse Rate [ From Monitor] Respiratory 34 H 17 Rate Blood Pressure 106/67 106/67 O2 Sat by Pulse 90 98 Oximetry 04/07/18 04/07/18 04/07/18 03:40 03:50 04:00 Temperature Pulse Rate 108 H 105 H 105 H Pulse Rate [ 105 H From Monitor] Respiratory 18 27 H 20 Rate Blood Pressure 106/67 106/67 106/67 O2 Sat by Pulse 97 90 97 Oximetry 04/07/18 04/07/18 04/07/18 04:10 04:20 04:30 Temperature Pulse Rate 102 H 103 H 102 H Pulse Rate [ From Monitor] Respiratory 26 H 26 H 27 H Rate Blood Pressure 113/68 113/68 113/68 O2 Sat by Pulse 98 98 98 Oximetry 04/07/18 04/07/18 04/07/18 04:40 04:50 05:00 Temperature Pulse Rate 105 H 106 H 103 H Pulse Rate [ From Monitor] Respiratory 26 H 26 H 29 H Rate Blood Pressure 113/68 113/68 106/64 O2 Sat by Pulse 95 98 98 Oximetry 04/07/18 04/07/18 04/07/18 05:10 05:20 05:30 Temperature Pulse Rate 106 H 81 110 H Pulse Rate [ From Monitor] Respiratory 16 34 H 27 H Rate Blood Pressure 106/64 106/64 106/64 O2 Sat by Pulse 97 95 88 Oximetry 04/07/18 04/07/18 04/07/18 05:40 05:50 06:00 Temperature Pulse Rate 115 H 107 H Pulse Rate [ From Monitor] Respiratory 29 H Rate Blood Pressure 106/64 106/64 114/69 O2 Sat by Pulse 96 97 Oximetry 04/07/18 04/07/18 04/07/18 06:10 06:20 06:30 Temperature Pulse Rate 104 H 107 H 105 H Pulse Rate [ From Monitor] Respiratory 35 H 30 H 37 H Rate Blood Pressure 114/69 114/69 114/69 O2 Sat by Pulse 95 97 78 L Oximetry 04/07/18 04/07/18 04/07/18 06:40 06:50 07:00 Temperature Pulse Rate 101 H 107 H Pulse Rate [ From Monitor] Respiratory 28 H 38 H Rate Blood Pressure 114/69 114/69 114/69 O2 Sat by Pulse 98 96 95 Oximetry 04/07/18 07:10 Temperature Pulse Rate 108 H Pulse Rate [ From Monitor] Respiratory 39 H Rate Blood Pressure 114/69 O2 Sat by Pulse 93 Oximetry - General Appearance General appearance: well-developed, other (jaundiced) EENT: sclera incterus Respiratory: Present: Clear to Ascultation Cardiology: regular, S1S2 Gastrointestinal: no tenderness, distended, obese Integumentary: other (jaundice) Neurologic: confused Musculoskeletal: other (+edema) - Lab 04/08/18 04:10 04/08/18 04:10 Most recent lab results Calcium 7.4 mg/dL (8.4-10.2) L 04/07/18 04:18 Magnesium 1.60 mg/dL (1.7-2.3) L 04/04/18 03:00 Urine Creatinine 136.8 mg/dL (0.1-20.0) H 04/04/18 16:10 Urine Sodium 13 mmol/L 04/04/18 16:10 Medications & Allergies - Medications Allergies/Adverse Reactions: Allergies No Known Allergies Allergy (Verified 04/04/18 04:27) Home Medications: Home Medications Medication Instructions Recorded Confirmed Last Taken Type Multivitamin [One Daily 1 each PO DAILY 04/04/18 04/04/18 Unknown History Multivitamin] Active Medications: Generic Name Dose Route Start Last Admin Trade Name Zacq PRN Reason Stop Dose Admin Albumin Human 25 gm 04/06/18 11:00 04/06/18 23:54 Alburx 25% (Albumin) IV 25 gm Q12H DENISE Administration Folic Acid 1 mg 04/04/18 10:00 04/06/18 10:14 Folvite PO 1 mg QDAY DENISE Administration Furosemide 20 mg 04/06/18 11:00 04/06/18 23:53 Lasix IV 20 mg Q12H DENISE Administration Guaifenesin 600 mg 04/05/18 14:00 04/06/18 22:01 Mucinex Er PO 600 mg BID DENISE Administration Levofloxacin/Dextrose 500 mg in 100 mls @ 100 mls/hr 04/05/18 14:00 04/06/18 10:13 Levaquin 500mg/100ml IV 100 mls/hr Q24HR DENISE Administration Protocol Lorazepam 4 mg 04/04/18 06:32 04/06/18 23:54 Ativan IV 4 mg Q1HR PRN Administration CIWA-Ar 16-25 Morphine Sulfate 2 mg 04/04/18 12:00 04/04/18 11:35 Morphine IV 2 mg Q4H PRN Administration Pain, Moderate (4-6) Ondansetron HCl 4 mg 04/04/18 06:26 Zofran IV Q8H PRN Nausea And Vomiting Prednisolone Sodium Phosphate 40 mg 04/04/18 16:00 04/06/18 10:14 Orapred PO 40 mg DAILY DENISE Administration Sodium Bicarbonate 1,300 mg 04/05/18 10:00 04/06/18 22:00 Sodium Bicarbonate PO 1,300 mg BID DENISE Administration Sodium Chloride 10 ml 04/04/18 10:00 04/06/18 22:01 Sodium Chloride Flush Syringe 10 Ml IV 10 ml BID DENISE Administration Sodium Chloride 10 ml 04/04/18 06:26 Sodium Chloride Flush Syringe 10 Ml IV PRN PRN LINE FLUSH Thiamine HCl 100 mg 04/04/18 10:00 04/06/18 10:14 Vitamin B-1 PO 100 mg DAILY DENISE Administration
[2018-04-07] MEDS: LEVAQUIN 500MG/100ML 500 MG/100 ML BAG IV SCH (10:03)
[2018-04-07] MEDS: SODIUM BICARBONATE PO SCH ×2 (10:04→22:02)
[2018-04-07] MEDS: ORAPRED PO SCH (10:04)
[2018-04-07] MEDS: MUCINEX ER PO SCH ×2 (10:06→22:02)
[2018-04-07] MEDS: FOLVITE PO SCH (10:06)
[2018-04-07] MEDS: VITAMIN B-1 PO SCH (10:06)
[2018-04-07] MEDS: SODIUM CHLORIDE FLUSH SYRINGE 10 ML IV SCH ×2 (10:07→22:03)
[2018-04-07 10:31] LABS: INR 2.33 (0.87-1.13)
[2018-04-07] MEDS: LASIX IV SCH ×2 (12:12→22:34)
--- NOTE | 2018-04-07 12:45 | Progress Note ---
Assessment and Plan Assessment and plan: Severe hyponatremia, symptomatic; secondary to alcohol abuse/beer potomania. Sodium improving slowly. Follow-up BMP Jaundice/Hyperbilirubinemia. Abdominal ultrasound showed hepatic steatosis; no evidence of obstruction or lesion. LFTs trending upward. Continue empiric Antibiotics. Peripheral edema. Acute alcoholic hepatitis +/- liver cirrhosis. Laboratory suggestive of cirrhosis with thrombocytopenia and elevated INR EtOH abuse. Continue CIWA protocol. Coagulopathy. Probable cirrhosis. Vitamin K when necessary. Thrombocytopenia. Etiology likely secondary to liver disease. Hypomagnesemia. Replete magnesium. Overall poor prognosis History Interval history: No new issues overnight. Hospitalist Physical - Constitutional Vitals: Temp Pulse Resp BP Pulse Ox 98.0 F 102 H 22 157/69 99 04/07/18 12:25 04/07/18 11:30 04/07/18 11:30 04/07/18 11:30 04/07/18 11:30 General appearance: Present: no acute distress, well-nourished - EENT Eyes: Present: scleral icterus ENT: hearing intact, clear oral mucosa, dentition normal - Neck Neck: Present: supple, normal ROM - Respiratory Respiratory effort: normal Respiratory: bilateral: CTA - Cardiovascular Rhythm: regular Heart Sounds: Present: S1 & S2. Absent: gallop, rub - Extremities Extremities: no ischemia, No edema, Full ROM - Abdominal General gastrointestinal: soft, non-tender, non-distended, normal bowel sounds - Integumentary Integumentary: Present: clear, warm, dry - Neurologic Neurologic: CNII-XII intact, moves all extremities Results - Labs CBC & Chem 7: 04/06/18 03:50 04/07/18 04:18 Labs: Laboratory Last Values WBC 12.0 K/mm3 (4.5-11.0) H 04/06/18 03:50 RBC 2.29 M/mm3 (3.65-5.03) L 04/06/18 03:50 Hgb 9.2 gm/dl (11.8-15.2) L 04/06/18 03:50 Hct 25.5 % (35.5-45.6) L 04/06/18 03:50 MCV 112 fl (84-94) H 04/06/18 03:50 MCH 40 pg (28-32) H 04/06/18 03:50 MCHC 36 % (32-34) H 04/06/18 03:50 RDW 14.9 % (13.2-15.2) 04/06/18 03:50 Plt Count 76 K/mm3 (140-440) L 04/06/18 03:50 Lymph % (Auto) 9.2 % (13.4-35.0) L 04/06/18 03:50 [place] % (Auto) 10.1 % (0.0-7.3) H 04/06/18 03:50 Eos % (Auto) 0.2 % (0.0-4.3) 04/06/18 03:50 Baso % (Auto) 0.6 % (0.0-1.8) 04/06/18 03:50 Lymph # 1.1 K/mm3 (1.2-5.4) L 04/06/18 03:50 [place] # 1.2 K/mm3 (0.0-0.8) H 04/06/18 03:50 Eos # 0.0 K/mm3 (0.0-0.4) 04/06/18 03:50 Baso # 0.1 K/mm3 (0.0-0.1) 04/06/18 03:50 Add Manual Diff Complete 04/05/18 04:59 Total Counted 100 04/05/18 04:59 Seg Neutrophils % 79.9 % (40.0-70.0) H 04/06/18 03:50 Seg Neuts % (Manual) 76.0 % (40.0-70.0) H 04/05/18 04:59 Band Neutrophils % 20.0 % 04/05/18 04:59 Lymphocytes % (Manual) 3.0 % (13.4-35.0) L 04/05/18 04:59 Reactive Lymphs % (Man) 0 % 04/05/18 04:59 Monocytes % (Manual) 1.0 % (0.0-7.3) 04/05/18 04:59 Eosinophils % (Manual) 0 % (0.0-4.3) 04/05/18 04:59 Basophils % (Manual) 0 % (0.0-1.8) 04/05/18 04:59 Metamyelocytes % 0 % 04/05/18 04:59 Myelocytes % 0 % 04/05/18 04:59 Promyelocytes % 0 % 04/05/18 04:59 Blast Cells % 0 % 04/05/18 04:59 Nucleated RBC % Not Reportable 04/05/18 04:59 Seg Neutrophils # 9.6 K/mm3 (1.8-7.7) H 04/06/18 03:50 Seg Neutrophils # Man 9.3 K/mm3 (1.8-7.7) H 04/05/18 04:59 Band Neutrophils # 2.4 K/mm3 04/05/18 04:59 Lymphocytes # (Manual) 0.4 K/mm3 (1.2-5.4) L 04/05/18 04:59 Abs React Lymphs (Man) 0.0 K/mm3 04/05/18 04:59 Monocytes # (Manual) 0.1 K/mm3 (0.0-0.8) 04/05/18 04:59 Eosinophils # (Manual) 0.0 K/mm3 (0.0-0.4) 04/05/18 04:59 Basophils # (Manual) 0.0 K/mm3 (0.0-0.1) 04/05/18 04:59 Metamyelocytes # 0.0 K/mm3 04/05/18 04:59 Myelocytes # 0.0 K/mm3 04/05/18 04:59 Promyelocytes # 0.0 K/mm3 04/05/18 04:59 Blast Cells # 0.0 K/mm3 04/05/18 04:59 WBC Morphology Not Reportable 04/05/18 04:59 Hypersegmented Neuts Not Reportable 04/05/18 04:59 Hyposegmented Neuts Not Reportable 04/05/18 04:59 Hypogranular Neuts Not Reportable 04/05/18 04:59 Smudge Cells Not Reportable 04/05/18 04:59 Toxic Granulation Not Reportable 04/05/18 04:59 Toxic Vacuolation Not Reportable 04/05/18 04:59 Dohle Bodies Not Reportable 04/05/18 04:59 Pelger-Huet Anomaly Not Reportable 04/05/18 04:59 Dannie Rods Not Reportable 04/05/18 04:59 Platelet Estimate Consistent w auto 04/05/18 04:59 Clumped Platelets Not Reportable 04/05/18 04:59 Plt Clumps, EDTA Not Reportable 04/05/18 04:59 Large Platelets Not Reportable 04/05/18 04:59 Giant Platelets Not Reportable 04/05/18 04:59 Platelet Satelliting Not Reportable 04/05/18 04:59 Plt Morphology Comment Not Reportable 04/05/18 04:59 RBC Morphology Not Reportable 04/05/18 04:59 Dimorphic RBCs Not Reportable 04/05/18 04:59 Polychromasia Not Reportable 04/05/18 04:59 Hypochromasia Few 04/05/18 04:59 Poikilocytosis Not Reportable 04/05/18 04:59 Anisocytosis Not Reportable 04/05/18 04:59 Microcytosis Not Reportable 04/05/18 04:59 Macrocytosis 1+ 04/05/18 04:59 Spherocytes Few 04/05/18 04:59 Pappenheimer Bodies Not Reportable 04/05/18 04:59 Sickle Cells Not Reportable 04/05/18 04:59 Target Cells Few 04/05/18 04:59 Tear Drop Cells Not Reportable 04/05/18 04:59 Ovalocytes Not Reportable 04/05/18 04:59 Helmet Cells Not Reportable 04/05/18 04:59 Johnson-[place] Bodies Not Reportable 04/05/18 04:59 Holcomb Rings Not Reportable 04/05/18 04:59 [place] Cells Not Reportable 04/05/18 04:59 Bite Cells Not Reportable 04/05/18 04:59 Crenated Cell Not Reportable 04/05/18 04:59 Elliptocytes Not Reportable 04/05/18 04:59 Acanthocytes (Spur) Not Reportable 04/05/18 04:59 Rouleaux Not Reportable 04/05/18 04:59 Hemoglobin C Crystals Not Reportable 04/05/18 04:59 Schistocytes Not Reportable 04/05/18 04:59 Malaria parasites Not Reportable 04/05/18 04:59 Slick Bodies Not Reportable 04/05/18 04:59 Hem Pathologist Commnt No 04/05/18 04:59 PT 25.9 Sec. (12.2-14.9) H 04/07/18 09:17 INR 2.33 (0.87-1.13) H 04/07/18 09:17 APTT 59.4 Sec. (24.2-36.6) H 04/05/18 04:59 Sodium 119 mmol/L (137-145) L* 04/07/18 04:18 Potassium 4.0 mmol/L (3.6-5.0) 04/07/18 04:18 Chloride 83.5 mmol/L (98-107) L 04/07/18 04:18 Carbon Dioxide 24 mmol/L (22-30) 04/07/18 04:18 Anion Gap 16 mmol/L 04/07/18 04:18 BUN 5 mg/dL (9-20) L 04/07/18 04:18 Creatinine < 0.2 mg/dL (0.8-1.5) L 04/07/18 04:18 Estimated GFR > 60 ml/min 04/07/18 04:18 BUN/Creatinine Ratio 25 % 04/07/18 04:18 Glucose 95 mg/dL (75-100) 04/07/18 04:18 POC Glucose 132 (70-105) H 04/04/18 21:37 Osmolality 270 Mosm/kg 04/04/18 07:55 Calcium 7.4 mg/dL (8.4-10.2) L 04/07/18 04:18 Magnesium 1.60 mg/dL (1.7-2.3) L 04/04/18 03:00 Total Bilirubin 17.50 mg/dL (0.1-1.2) H 04/07/18 04:18 Direct Bilirubin 9.7 mg/dL (0-0.2) H 04/06/18 03:50 Indirect Bilirubin 5.6 mg/dL 04/06/18 03:50 AST 494 units/L (5-40) H 04/07/18 04:18 ALT 74 units/L (7-56) H 04/07/18 04:18 Alkaline Phosphatase 108 units/L (35-129) 04/07/18 04:18 Ammonia 93.0 umol/L (25-60) H 04/06/18 08:36 NT-Pro-B Natriuret Pep 519.7 pg/mL (0-450) H 04/04/18 03:00 Total Protein 6.8 g/dL (6.3-8.2) 04/07/18 04:18 Albumin 2.5 g/dL (3.9-5) L 04/07/18 04:18 Albumin/Globulin Ratio 0.6 % 04/07/18 04:18 Lipase 121 units/L (13-60) H 04/04/18 03:00 TSH 2.320 mlU/mL (0.270-4.200) 04/04/18 03:00 Free T4 1.25 ng/dL (0.76-1.46) 04/04/18 03:00 Urine Color [place] (Yellow) 04/04/18 16:10 Urine Turbidity Cloudy (Clear) 04/04/18 16:10 Urine pH 6.0 (5.0-7.0) 04/04/18 16:10 Ur Specific Taylor 1.017 (1.003-1.030) 04/04/18 16:10 Urine Protein 30 mg/dl mg/dL (Negative) 04/04/18 16:10 Urine Glucose (UA) 50 mg/dL (Negative) 04/04/18 16:10 Urine Ketones Tr mg/dL (Negative) 04/04/18 16:10 Urine Blood Lg (Negative) 04/04/18 16:10 Urine Nitrite Neg (Negative) 04/04/18 16:10 Urine Bilirubin Mod (Negative) 04/04/18 16:10 Urine Ictotest Positive (Negative) 04/04/18 16:10 Urine Urobilinogen 4.0 mg/dL (<2.0) 04/04/18 16:10 Ur Leukocyte Esterase Neg (Negative) 04/04/18 16:10 Urine WBC (Auto) 24.0 /HPF (0.0-6.0) H 04/04/18 16:10 Urine RBC (Auto) 3.0 /HPF (0.0-6.0) 04/04/18 16:10 Urine Bacteria (Auto) 2+ /HPF (Negative) 04/04/18 16:10 Urine Mucus 1+ /HPF 04/04/18 16:10 Urine Osmolality 485 Mosm/kg 04/04/18 16:10 Urine Creatinine 136.8 mg/dL (0.1-20.0) H 04/04/18 16:10 Urine Sodium 13 mmol/L 04/04/18 16:10 Urine Chloride 23.9 mmolL (110-250) L 01/21/19 16:10 Plasma/Serum Alcohol 0.20 % (0-0.07) H 04/04/18 03:00 Hepatitis A IgM Ab Non-reactive (NonReactive) 04/05/18 12:52 Hep Bs Antigen Non-reactive (Negative) 04/05/18 12:52 Hep B Core IgM Ab Non-reactive (NonReactive) 04/05/18 12:52 Hepatitis C Antibody Non-reactive (NonReactive) 04/05/18 12:52 Blood Type O POSITIVE 04/04/18 03:00 Antibody Screen Negative 04/04/18 03:00
[2018-04-07] MEDS ORDERED: VITAMIN K (ADULT ONLY) SUB-Q NR (12:46)
--- NOTE | 2018-04-07 13:00 | Gastroenterology Progress Note ---
<LYNDON DE LUNA - Last Filed: 04/07/18 12:55> Assessment and Plan 1.jaundice/hyperbilirubinemia 2.ETOH abuse 3.hyponatremia -afebrile -WBD 12.0 -H/H 9.2/25.5-no active signs of bleeding -hepatitis panel negative -Plt 76 -INR 2.33-trending down -LFTs (T.tushar 17.50 (trending up), AST 494, ALT 74, alk phos 108) -abd U/S-showed hepatic steatosis; no evidence of obstruction or lesion -etiology- likely acute alcoholic hepatitis; underlying cirrhosis unable to be excluded (labs suggestive given low plt and elevated INR) -clinically, patient has no overt encephalopathy. Denies abd pain, N/V, or active signs of bleeding. -discriminant function= 72 (indicative of high short-term mortality)-overall poor prognosis -continue Prednisolone -continue empiric antibiotics (levaquin) -alcohol cessation-monitor for signs of withdrawal -continue to trend labs and supportive care -electrolyte management per primary team -will follow Subjective Date of service: 04/07/18 Principal diagnosis: ETOH/cirrhosis Interval history: No acute distress. Objective - Constitutional Vitals: Temp Pulse Resp BP Pulse Ox 98.0 F 92 H 28 H 157/69 98 04/07/18 12:25 04/07/18 12:50 04/07/18 12:50 04/07/18 12:50 04/07/18 12:00 General appearance: no acute distress - EENT Eyes: PERRL, EOM intact, scleral icterus ENT: hearing intact - Respiratory Respiratory: bilateral: diminished - Cardiovascular Rhythm: regular Heart Sounds: Present: S1 & S2 - Gastrointestinal General gastrointestinal: Present: soft, non-tender, non-distended, normal bowel sounds, other (obese) - Integumentary Integumentary: Present: jaundice - Labs CBC & Chem 7: 04/06/18 03:50 04/07/18 04:18 Labs: Laboratory Results - last 24 hr 04/06/18 04/06/18 04/06/18 14:52 19:01 21:29 PT INR Sodium 115 L* 115 L* 117 L* Potassium 4.0 4.0 3.9 Chloride 80.4 L 80.2 L 82.0 L Carbon Dioxide 24 25 25 Anion Gap 15 14 14 BUN 4 L 4 L 4 L Creatinine < 0.2 L < 0.2 L < 0.2 L Estimated GFR > 60 > 60 > 60 BUN/Creatinine Ratio 20 20 20 Glucose 131 H 125 H 129 H Calcium 7.4 L 7.3 L 7.3 L Total Bilirubin AST ALT Alkaline Phosphatase Total Protein Albumin Albumin/Globulin Ratio 04/07/18 04/07/18 04:18 09:17 PT 25.9 H INR 2.33 H Sodium 119 L* Potassium 4.0 Chloride 83.5 L Carbon Dioxide 24 Anion Gap 16 BUN 5 L Creatinine < 0.2 L Estimated GFR > 60 BUN/Creatinine Ratio 25 Glucose 95 Calcium 7.4 L Total Bilirubin 17.50 H AST 494 H ALT 74 H Alkaline Phosphatase 108 Total Protein 6.8 Albumin 2.5 L Albumin/Globulin Ratio 0.6 <LOVE GOODWIN - Last Filed: 04/07/18 13:07> Assessment and Plan Pt seen and examined. Agree with note above. bilirubin increasing despite prednisolone. calculate lille score at 1 week to determine if steroids should be continued. guarded prognosis. Objective - Constitutional Vitals: Temp Pulse Resp BP Pulse Ox 98.0 F 92 H 28 H 157/69 98 04/07/18 12:25 04/07/18 12:50 04/07/18 12:50 04/07/18 12:50 04/07/18 12:00 - Labs CBC & Chem 7: 04/06/18 03:50 04/07/18 04:18 Labs: Laboratory Results - last 24 hr 04/06/18 04/06/18 04/06/18 14:52 19:01 21:29 PT INR Sodium 115 L* 115 L* 117 L* Potassium 4.0 4.0 3.9 Chloride 80.4 L 80.2 L 82.0 L Carbon Dioxide 24 25 25 Anion Gap 15 14 14 BUN 4 L 4 L 4 L Creatinine < 0.2 L < 0.2 L < 0.2 L Estimated GFR > 60 > 60 > 60 BUN/Creatinine Ratio 20 20 20 Glucose 131 H 125 H 129 H Calcium 7.4 L 7.3 L 7.3 L Total Bilirubin AST ALT Alkaline Phosphatase Total Protein Albumin Albumin/Globulin Ratio 04/07/18 04/07/18 04:18 09:17 PT 25.9 H INR 2.33 H Sodium 119 L* Potassium 4.0 Chloride 83.5 L Carbon Dioxide 24 Anion Gap 16 BUN 5 L Creatinine < 0.2 L Estimated GFR > 60 BUN/Creatinine Ratio 25 Glucose 95 Calcium 7.4 L Total Bilirubin 17.50 H AST 494 H ALT 74 H Alkaline Phosphatase 108 Total Protein 6.8 Albumin 2.5 L Albumin/Globulin Ratio 0.6
[2018-04-07] MEDS: ALBURX 25% (ALBUMIN) IV SCH ×2 (13:02→22:34)
[2018-04-07] MEDS: MORPHINE IV PRN (22:01)
[2018-04-08] MEDS: ATIVAN IV PRN (00:51)
[2018-04-08] MEDS ORDERED: ATIVAN IV PRN (01:55)
[2018-04-08 04:50] LABS: Basophils % (Auto) 0.3 % (0.0-1.8); Eosinophils # (Auto) 0.1 K/mm3 (0.0-0.4); Eosinophils % (Auto) 0.6 % (0.0-4.3); Hematocrit 25.9 % (35.5-45.6); Hemoglobin 9.2 gm/dl (11.8-15.2); Lymphocytes # (Auto) 1.8 K/mm3 (1.2-5.4); Lymphocytes % (Auto) 13.2 % (13.4-35.0); Mean Corpuscular HGB Conc 35 % (32-34); Monocytes # (Auto) 1.8 K/mm3 (0.0-0.8); Monocytes % (Auto) 13.7 % (0.0-7.3); Red Cell Distribution Width 14.6 % (13.2-15.2)
[2018-04-08 04:52] LABS: Mean Corpuscular Volume 113 fl (84-94); Platelet Count 91 K/mm3 (140-440)
[2018-04-08 05:00] LABS: INR 2.59 (0.87-1.13)
[2018-04-08 05:11] LABS: Alanine Aminotransferase 67 units/L (7-56); Albumin 2.7 g/dL (3.9-5); BUN/Creatinine Ratio 35; Blood Urea Nitrogen 7 mg/dL (9-20); Calcium 7.5 mg/dL (8.4-10.2); Hemolysis Index 0
--- NOTE | 2018-04-08 09:39 | Progress Note ---
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 * Alcohol abuse * Hypomagnesemia * Hypocalcemia Plan: * Na gradually improving * add salt tablets * cirrhosis and liver disease are absolute contraindications to samsca and vapri bria * Continue diuresis w/ lasix 20mg IV w/ Albumin q12h * Fluid restriction - 1200ml/day * Alcohol cessation advised * GI/Hepatology recommendations noted * Replete lytes prn Subjective Date of service: 04/08/18 Principal diagnosis: ETOH/cirrhosis Interval history: resting well in bed today Objective - Exam Narrative Exam: General appearance: well-developed, other (jaundiced) EENT: sclera incterus Respiratory: Present: Clear to Ascultation Cardiology: regular, S1S2 Gastrointestinal: no tenderness, distended, obese Integumentary: other (jaundice) Neurologic: confused Musculoskeletal: other (+edema) - Vital Signs Vital signs: Vital Signs - 12hr 04/07/18 04/07/18 04/07/18 21:40 21:50 22:00 Temperature Pulse Rate 102 H 101 H 104 H Pulse Rate [ From Monitor] Respiratory 22 27 H 19 Rate Blood Pressure 200/142 200/142 218/129 O2 Sat by Pulse 95 98 97 Oximetry 04/07/18 04/07/18 04/07/18 22:10 22:20 22:30 Temperature Pulse Rate 101 H 104 H 100 H Pulse Rate [ From Monitor] Respiratory 19 33 H 28 H Rate Blood Pressure 218/129 218/129 160/60 O2 Sat by Pulse 98 98 97 Oximetry 04/07/18 04/07/18 04/07/18 22:40 22:50 23:00 Temperature Pulse Rate 97 H 100 H 99 H Pulse Rate [ From Monitor] Respiratory 19 25 H 18 Rate Blood Pressure 160/60 160/60 177/86 O2 Sat by Pulse 97 99 100 Oximetry 04/07/18 04/07/18 04/07/18 23:10 23:20 23:30 Temperature Pulse Rate 93 H 91 H 90 Pulse Rate [ From Monitor] Respiratory 22 18 17 Rate Blood Pressure 177/86 177/86 177/86 O2 Sat by Pulse 98 99 99 Oximetry 04/07/18 04/07/18 04/07/18 23:32 23:40 23:50 Temperature Pulse Rate 90 90 93 H Pulse Rate [ From Monitor] Respiratory 21 23 21 Rate Blood Pressure 177/86 177/86 177/86 O2 Sat by Pulse 99 100 99 Oximetry 04/08/18 04/08/18 04/08/18 00:00 00:10 00:20 Temperature 98.3 F Pulse Rate 88 107 H 103 H Pulse Rate [ 97 H From Monitor] Respiratory 19 25 H 20 Rate Blood Pressure 151/64 151/64 151/64 O2 Sat by Pulse 98 99 98 Oximetry 04/08/18 04/08/18 04/08/18 00:30 00:40 00:50 Temperature Pulse Rate 109 H 98 H 96 H Pulse Rate [ From Monitor] Respiratory 18 18 18 Rate Blood Pressure 151/64 151/64 151/64 O2 Sat by Pulse 98 96 Oximetry 04/08/18 04/08/18 04/08/18 01:00 01:10 01:20 Temperature Pulse Rate 96 H 98 H 95 H Pulse Rate [ From Monitor] Respiratory 19 25 H 24 Rate Blood Pressure 138/66 138/66 138/66 O2 Sat by Pulse 97 98 91 Oximetry 04/08/18 04/08/18 04/08/18 01:30 01:40 01:50 Temperature Pulse Rate 94 H 95 H 95 H Pulse Rate [ From Monitor] Respiratory 28 H 25 H 25 H Rate Blood Pressure 138/66 138/66 138/66 O2 Sat by Pulse 96 92 96 Oximetry 04/08/18 04/08/18 04/08/18 02:00 02:10 02:20 Temperature Pulse Rate 100 H 95 H 98 H Pulse Rate [ From Monitor] Respiratory 24 32 H 29 H Rate Blood Pressure 144/66 144/66 144/66 O2 Sat by Pulse 99 84 85 Oximetry 04/08/18 04/08/18 04/08/18 02:30 02:40 02:50 Temperature Pulse Rate 95 H 94 H 95 H Pulse Rate [ From Monitor] Respiratory 26 H 25 H 26 H Rate Blood Pressure 144/66 144/66 144/66 O2 Sat by Pulse 99 96 99 Oximetry 04/08/18 04/08/18 04/08/18 03:00 03:10 03:20 Temperature Pulse Rate 93 H 94 H 94 H Pulse Rate [ From Monitor] Respiratory 22 27 H 28 H Rate Blood Pressure 142/68 142/68 142/68 O2 Sat by Pulse 97 95 97 Oximetry 04/08/18 04/08/18 04/08/18 03:30 03:40 03:50 Temperature Pulse Rate 94 H 97 H 93 H Pulse Rate [ From Monitor] Respiratory 25 H 19 27 H Rate Blood Pressure 142/68 142/68 142/68 O2 Sat by Pulse 95 100 100 Oximetry 04/08/18 04/08/18 04/08/18 04:00 04:06 04:10 Temperature 98.1 F Pulse Rate 104 H 94 H Pulse Rate [ 95 H From Monitor] Respiratory 25 H 21 24 Rate Blood Pressure O2 Sat by Pulse 95 97 96 Oximetry 04/08/18 04/08/18 04/08/18 04:20 04:30 04:40 Temperature Pulse Rate 94 H 96 H 93 H Pulse Rate [ From Monitor] Respiratory 29 H 25 H 24 Rate Blood Pressure O2 Sat by Pulse 95 98 92 Oximetry 04/08/18 04/08/18 04/08/18 04:50 05:00 05:10 Temperature Pulse Rate 100 H 96 H 95 H Pulse Rate [ From Monitor] Respiratory 21 24 33 H Rate Blood Pressure 153/81 153/81 O2 Sat by Pulse 97 97 95 Oximetry 04/08/18 04/08/18 04/08/18 05:20 05:30 05:40 Temperature Pulse Rate 109 H 96 H 92 H Pulse Rate [ From Monitor] Respiratory 21 25 H 22 Rate Blood Pressure 153/81 153/81 153/81 O2 Sat by Pulse 97 96 95 Oximetry 04/08/18 04/08/18 04/08/18 05:50 06:00 09:09 Temperature Pulse Rate 98 H 98 H Pulse Rate [ From Monitor] Respiratory 29 H 28 H Rate Blood Pressure 153/81 153/72 O2 Sat by Pulse 93 95 98 Oximetry - Lab 04/08/18 04:10 04/08/18 04:10 Most recent lab results Calcium 7.5 mg/dL (8.4-10.2) L 04/08/18 04:10 Magnesium 1.60 mg/dL (1.7-2.3) L 04/04/18 03:00 Urine Creatinine 136.8 mg/dL (0.1-20.0) H 04/04/18 16:10 Urine Sodium 13 mmol/L 04/04/18 16:10 Medications & Allergies - Medications Allergies/Adverse Reactions: Allergies No Known Allergies Allergy (Verified 04/04/18 04:27) Home Medications: Home Medications Medication Instructions Recorded Confirmed Last Taken Type Multivitamin [One Daily 1 each PO DAILY 04/04/18 04/04/18 Unknown History Multivitamin] Active Medications: Generic Name Dose Route Start Last Admin Trade Name Zacq PRN Reason Stop Dose Admin Albumin Human 25 gm 04/06/18 11:00 04/07/18 22:34 Alburx 25% (Albumin) IV 25 gm Q12H DENISE Administration Folic Acid 1 mg 04/04/18 10:00 04/07/18 10:06 Folvite PO 1 mg QDAY DENISE Administration Furosemide 20 mg 04/06/18 11:00 04/07/18 22:34 Lasix IV 20 mg Q12H DENISE Administration Guaifenesin 600 mg 04/05/18 14:00 04/07/18 22:02 Mucinex Er PO 600 mg BID DENISE Administration Levofloxacin/Dextrose 500 mg in 100 mls @ 100 mls/hr 04/05/18 14:00 04/07/18 10:03 Levaquin 500mg/100ml IV 100 mls/hr Q24HR DENISE Administration Protocol Lorazepam 4 mg 04/08/18 01:55 Ativan IV Q1H PRN CIWA-Ar 16-25 Morphine Sulfate 2 mg 04/04/18 12:00 04/07/18 22:01 Morphine IV 2 mg Q4H PRN Administration Pain, Moderate (4-6) Ondansetron HCl 4 mg 04/04/18 06:26 Zofran IV Q8H PRN Nausea And Vomiting Prednisolone Sodium Phosphate 40 mg 04/04/18 16:00 04/07/18 10:04 Orapred PO 40 mg DAILY DENISE Administration Sodium Bicarbonate 1,300 mg 04/05/18 10:00 04/07/18 22:02 Sodium Bicarbonate PO 1,300 mg BID DENISE Administration Sodium Chloride 10 ml 04/04/18 10:00 04/07/18 22:03 Sodium Chloride Flush Syringe 10 Ml IV 10 ml BID DENISE Administration Sodium Chloride 10 ml 04/04/18 06:26 Sodium Chloride Flush Syringe 10 Ml IV PRN PRN LINE FLUSH Thiamine HCl 100 mg 04/04/18 10:00 04/07/18 10:06 Vitamin B-1 PO 100 mg DAILY DENISE Administration
[2018-04-08] MEDS: FOLVITE PO SCH (09:50)
[2018-04-08] MEDS: MUCINEX ER PO SCH ×2 (09:50→21:44)
[2018-04-08] MEDS: VITAMIN B-1 PO SCH (09:50)
[2018-04-08] MEDS: LEVAQUIN 500MG/100ML 500 MG/100 ML BAG IV SCH (09:50)
[2018-04-08] MEDS: ORAPRED PO SCH (09:51)
[2018-04-08] MEDS: SODIUM CHLORIDE FLUSH SYRINGE 10 ML IV SCH ×2 (09:51→21:44)
--- NOTE | 2018-04-08 12:21 | Gastroenterology Progress Note ---
<LYNDON DE LUNA - Last Filed: 04/08/18 12:23> Assessment and Plan 1.jaundice/hyperbilirubinemia 2.ETOH abuse 3.hyponatremia -afebrile -WBC 13.5-trending up -H/H stable (9.2.)-no active signs of bleeding -hepatitis panel negative -Plt 91 -INR 2.59-trending down -LFTs (T.tushar 18.70, AST 332, ALT 67, alk phos 94) -abd U/S-showed hepatic steatosis; no evidence of obstruction or lesion -etiology- likely acute alcoholic hepatitis; underlying cirrhosis unable to be excluded (labs suggestive given low plt and elevated INR) -clinically, patient has no overt encephalopathy. Denies abd pain, N/V, or active signs of bleeding. -discriminant function= 72 (indicative of high short-term mortality)-overall poor prognosis -continue Prednisolone- bilirubin increasing despite medication; calculate lille score at 1 week to determine continuation of steroids -continue empiric antibiotics (levaquin) -alcohol cessation-monitor for signs of withdrawal -continue to trend labs and supportive care -electrolyte management per primary team -will follow Subjective Date of service: 04/08/18 Principal diagnosis: ETOH/cirrhosis Interval history: No acute distress. Objective - Constitutional Vitals: Temp Pulse Resp BP Pulse Ox 98.1 F 98 H 28 H 153/72 98 04/08/18 04:00 04/08/18 06:00 04/08/18 06:00 04/08/18 06:00 04/08/18 09:09 General appearance: no acute distress, other (drowsy) - EENT Eyes: scleral icterus - Respiratory Respiratory: bilateral: diminished - Cardiovascular Rhythm: regular Heart Sounds: Present: S1 & S2 - Gastrointestinal General gastrointestinal: Present: soft, non-tender, non-distended, normal bowel sounds, other (obese) - Integumentary Integumentary: Present: jaundice - Labs CBC & Chem 7: 04/08/18 04:10 04/08/18 04:10 Labs: Laboratory Results - last 24 hr 04/08/18 04/08/18 04/08/18 04:10 04:10 04:10 WBC 13.5 H RBC 2.30 L Hgb 9.2 L Hct 25.9 L MCV 113 H MCH 40 H MCHC 35 H RDW 14.6 Plt Count 91 L Lymph % (Auto) 13.2 L [place] % (Auto) 13.7 H Eos % (Auto) 0.6 Baso % (Auto) 0.3 Lymph # 1.8 [place] # 1.8 H Eos # 0.1 Baso # 0.0 Seg Neutrophils % 72.2 H Seg Neutrophils # 9.8 H PT 28.1 H INR 2.59 H Sodium 122 L Potassium 3.8 Chloride 84.2 L Carbon Dioxide 27 Anion Gap 15 BUN 7 L Creatinine < 0.2 L Estimated GFR > 60 BUN/Creatinine Ratio 35 Glucose 106 H Calcium 7.5 L Total Bilirubin 18.70 H AST 332 H ALT 67 H Alkaline Phosphatase 94 Total Protein 7.0 Albumin 2.7 L Albumin/Globulin Ratio 0.6 <LOVE GOODWIN - Last Filed: 04/08/18 14:01> Assessment and Plan Pt seen and examined. agree with note above. bilirubin going up. if continues to rise then would d/c steroids after 1 week per lille score. management of withdrawal symptoms per primary Objective - Constitutional Vitals: Temp Pulse Resp BP Pulse Ox 98.1 F 95 H 29 H 143/83 97 04/08/18 12:00 04/08/18 13:20 04/08/18 13:20 04/08/18 13:20 04/08/18 13:20 - Labs CBC & Chem 7: 04/08/18 04:10 04/08/18 04:10 Labs: Laboratory Results - last 24 hr 04/08/18 04/08/18 04/08/18 04:10 04:10 04:10 WBC 13.5 H RBC 2.30 L Hgb 9.2 L Hct 25.9 L MCV 113 H MCH 40 H MCHC 35 H RDW 14.6 Plt Count 91 L Lymph % (Auto) 13.2 L [place] % (Auto) 13.7 H Eos % (Auto) 0.6 Baso % (Auto) 0.3 Lymph # 1.8 [place] # 1.8 H Eos # 0.1 Baso # 0.0 Seg Neutrophils % 72.2 H Seg Neutrophils # 9.8 H PT 28.1 H INR 2.59 H Sodium 122 L Potassium 3.8 Chloride 84.2 L Carbon Dioxide 27 Anion Gap 15 BUN 7 L Creatinine < 0.2 L Estimated GFR > 60 BUN/Creatinine Ratio 35 Glucose 106 H Calcium 7.5 L Total Bilirubin 18.70 H AST 332 H ALT 67 H Alkaline Phosphatase 94 Total Protein 7.0 Albumin 2.7 L Albumin/Globulin Ratio 0.6
--- NOTE | 2018-04-08 12:24 | Progress Note ---
Assessment and Plan Assessment and plan: Severe hyponatremia, symptomatic; secondary to alcohol abuse/beer potomania. Sodium improving slowly. Fluid restriction - 1200ml/day. Follow-up BMP Jaundice/Hyperbilirubinemia. Abdominal ultrasound showed hepatic steatosis; no evidence of obstruction or lesion. LFTs trending upward. Continue empiric Antibiotics. Peripheral edema. Continue diuresis w/ lasix 20mg IV w/ Albumin q12h Acute alcoholic hepatitis +/- liver cirrhosis. Laboratory suggestive of cirrhosis with thrombocytopenia and elevated INR EtOH abuse. Continue CIWA protocol. Coagulopathy. Probable cirrhosis. Vitamin K when necessary. Thrombocytopenia. Etiology likely secondary to liver disease. Hypomagnesemia. Replete magnesium. Overall poor prognosis History Interval history: No new issues overnight. Hospitalist Physical - Constitutional Vitals: Temp Pulse Resp BP Pulse Ox 98.1 F 98 H 28 H 153/72 98 04/08/18 04:00 04/08/18 06:00 04/08/18 06:00 04/08/18 06:00 04/08/18 09:09 General appearance: Present: no acute distress, well-nourished - EENT Eyes: Present: PERRL, EOM intact ENT: hearing intact, clear oral mucosa, dentition normal - Neck Neck: Present: supple, normal ROM - Respiratory Respiratory effort: normal Respiratory: bilateral: CTA - Cardiovascular Rhythm: regular Heart Sounds: Present: S1 & S2. Absent: gallop, rub - Extremities Extremities: no ischemia, No edema, Full ROM - Abdominal General gastrointestinal: soft, non-tender, non-distended, normal bowel sounds - Integumentary Integumentary: Present: clear, warm, dry - Neurologic Neurologic: CNII-XII intact, moves all extremities Results - Labs CBC & Chem 7: 04/08/18 04:10 04/08/18 04:10 Labs: Laboratory Last Values WBC 13.5 K/mm3 (4.5-11.0) H 04/08/18 04:10 RBC 2.30 M/mm3 (3.65-5.03) L 04/08/18 04:10 Hgb 9.2 gm/dl (11.8-15.2) L 04/08/18 04:10 Hct 25.9 % (35.5-45.6) L 04/08/18 04:10 MCV 113 fl (84-94) H 04/08/18 04:10 MCH 40 pg (28-32) H 04/08/18 04:10 MCHC 35 % (32-34) H 04/08/18 04:10 RDW 14.6 % (13.2-15.2) 04/08/18 04:10 Plt Count 91 K/mm3 (140-440) L 04/08/18 04:10 Lymph % (Auto) 13.2 % (13.4-35.0) L 04/08/18 04:10 [place] % (Auto) 13.7 % (0.0-7.3) H 04/08/18 04:10 Eos % (Auto) 0.6 % (0.0-4.3) 04/08/18 04:10 Baso % (Auto) 0.3 % (0.0-1.8) 04/08/18 04:10 Lymph # 1.8 K/mm3 (1.2-5.4) 04/08/18 04:10 [place] # 1.8 K/mm3 (0.0-0.8) H 04/08/18 04:10 Eos # 0.1 K/mm3 (0.0-0.4) 04/08/18 04:10 Baso # 0.0 K/mm3 (0.0-0.1) 04/08/18 04:10 Add Manual Diff Complete 04/05/18 04:59 Total Counted 100 04/05/18 04:59 Seg Neutrophils % 72.2 % (40.0-70.0) H 04/08/18 04:10 Seg Neuts % (Manual) 76.0 % (40.0-70.0) H 04/05/18 04:59 Band Neutrophils % 20.0 % 04/05/18 04:59 Lymphocytes % (Manual) 3.0 % (13.4-35.0) L 04/05/18 04:59 Reactive Lymphs % (Man) 0 % 04/05/18 04:59 Monocytes % (Manual) 1.0 % (0.0-7.3) 04/05/18 04:59 Eosinophils % (Manual) 0 % (0.0-4.3) 04/05/18 04:59 Basophils % (Manual) 0 % (0.0-1.8) 04/05/18 04:59 Metamyelocytes % 0 % 04/05/18 04:59 Myelocytes % 0 % 04/05/18 04:59 Promyelocytes % 0 % 04/05/18 04:59 Blast Cells % 0 % 04/05/18 04:59 Nucleated RBC % Not Reportable 04/05/18 04:59 Seg Neutrophils # 9.8 K/mm3 (1.8-7.7) H 04/08/18 04:10 Seg Neutrophils # Man 9.3 K/mm3 (1.8-7.7) H 04/05/18 04:59 Band Neutrophils # 2.4 K/mm3 04/05/18 04:59 Lymphocytes # (Manual) 0.4 K/mm3 (1.2-5.4) L 04/05/18 04:59 Abs React Lymphs (Man) 0.0 K/mm3 04/05/18 04:59 Monocytes # (Manual) 0.1 K/mm3 (0.0-0.8) 04/05/18 04:59 Eosinophils # (Manual) 0.0 K/mm3 (0.0-0.4) 04/05/18 04:59 Basophils # (Manual) 0.0 K/mm3 (0.0-0.1) 04/05/18 04:59 Metamyelocytes # 0.0 K/mm3 04/05/18 04:59 Myelocytes # 0.0 K/mm3 04/05/18 04:59 Promyelocytes # 0.0 K/mm3 04/05/18 04:59 Blast Cells # 0.0 K/mm3 04/05/18 04:59 WBC Morphology Not Reportable 04/05/18 04:59 Hypersegmented Neuts Not Reportable 04/05/18 04:59 Hyposegmented Neuts Not Reportable 04/05/18 04:59 Hypogranular Neuts Not Reportable 04/05/18 04:59 Smudge Cells Not Reportable 04/05/18 04:59 Toxic Granulation Not Reportable 04/05/18 04:59 Toxic Vacuolation Not Reportable 04/05/18 04:59 Dohle Bodies Not Reportable 04/05/18 04:59 Pelger-Huet Anomaly Not Reportable 04/05/18 04:59 Dannie Rods Not Reportable 04/05/18 04:59 Platelet Estimate Consistent w auto 04/05/18 04:59 Clumped Platelets Not Reportable 04/05/18 04:59 Plt Clumps, EDTA Not Reportable 04/05/18 04:59 Large Platelets Not Reportable 04/05/18 04:59 Giant Platelets Not Reportable 04/05/18 04:59 Platelet Satelliting Not Reportable 04/05/18 04:59 Plt Morphology Comment Not Reportable 04/05/18 04:59 RBC Morphology Not Reportable 04/05/18 04:59 Dimorphic RBCs Not Reportable 04/05/18 04:59 Polychromasia Not Reportable 04/05/18 04:59 Hypochromasia Few 04/05/18 04:59 Poikilocytosis Not Reportable 04/05/18 04:59 Anisocytosis Not Reportable 04/05/18 04:59 Microcytosis Not Reportable 04/05/18 04:59 Macrocytosis 1+ 04/05/18 04:59 Spherocytes Few 04/05/18 04:59 Pappenheimer Bodies Not Reportable 04/05/18 04:59 Sickle Cells Not Reportable 04/05/18 04:59 Target Cells Few 04/05/18 04:59 Tear Drop Cells Not Reportable 04/05/18 04:59 Ovalocytes Not Reportable 04/05/18 04:59 Helmet Cells Not Reportable 04/05/18 04:59 [place] Bodies Not Reportable 04/05/18 04:59 [place] Rings Not Reportable 04/05/18 04:59 [place] Cells Not Reportable 04/05/18 04:59 Bite Cells Not Reportable 04/05/18 04:59 Crenated Cell Not Reportable 04/05/18 04:59 Elliptocytes Not Reportable 04/05/18 04:59 Acanthocytes (Spur) Not Reportable 04/05/18 04:59 Rouleaux Not Reportable 04/05/18 04:59 Hemoglobin C Crystals Not Reportable 04/05/18 04:59 Schistocytes Not Reportable 04/05/18 04:59 Malaria parasites Not Reportable 04/05/18 04:59 Slick Bodies Not Reportable 04/05/18 04:59 Hem Pathologist Commnt No 04/05/18 04:59 PT 28.1 Sec. (12.2-14.9) H 04/08/18 04:10 INR 2.59 (0.87-1.13) H 04/08/18 04:10 APTT 59.4 Sec. (24.2-36.6) H 04/05/18 04:59 Sodium 122 mmol/L (137-145) L 04/08/18 04:10 Potassium 3.8 mmol/L (3.6-5.0) 04/08/18 04:10 Chloride 84.2 mmol/L (98-107) L 04/08/18 04:10 Carbon Dioxide 27 mmol/L (22-30) 04/08/18 04:10 Anion Gap 15 mmol/L 04/08/18 04:10 BUN 7 mg/dL (9-20) L 04/08/18 04:10 Creatinine < 0.2 mg/dL (0.8-1.5) L 04/08/18 04:10 Estimated GFR > 60 ml/min 04/08/18 04:10 BUN/Creatinine Ratio 35 % 04/08/18 04:10 Glucose 106 mg/dL (75-100) H 04/08/18 04:10 POC Glucose 132 (70-105) H 04/04/18 21:37 Osmolality 270 Mosm/kg 04/04/18 07:55 Calcium 7.5 mg/dL (8.4-10.2) L 04/08/18 04:10 Magnesium 1.60 mg/dL (1.7-2.3) L 04/04/18 03:00 Total Bilirubin 18.70 mg/dL (0.1-1.2) H 04/08/18 04:10 Direct Bilirubin 9.7 mg/dL (0-0.2) H 04/06/18 03:50 Indirect Bilirubin 5.6 mg/dL 04/06/18 03:50 AST 332 units/L (5-40) H 04/08/18 04:10 ALT 67 units/L (7-56) H 04/08/18 04:10 Alkaline Phosphatase 94 units/L (35-129) 04/08/18 04:10 Ammonia 93.0 umol/L (25-60) H 04/06/18 08:36 NT-Pro-B Natriuret Pep 519.7 pg/mL (0-450) H 04/04/18 03:00 Total Protein 7.0 g/dL (6.3-8.2) 04/08/18 04:10 Albumin 2.7 g/dL (3.9-5) L 04/08/18 04:10 Albumin/Globulin Ratio 0.6 % 04/08/18 04:10 Lipase 121 units/L (13-60) H 04/04/18 03:00 TSH 2.320 mlU/mL (0.270-4.200) 04/04/18 03:00 Free T4 1.25 ng/dL (0.76-1.46) 04/04/18 03:00 Urine Color [place] (Yellow) 04/04/18 16:10 Urine Turbidity Cloudy (Clear) 04/04/18 16:10 Urine pH 6.0 (5.0-7.0) 04/04/18 16:10 Ur Specific [place] 1.017 (1.003-1.030) 04/04/18 16:10 Urine Protein 30 mg/dl mg/dL (Negative) 04/04/18 16:10 Urine Glucose (UA) 50 mg/dL (Negative) 04/04/18 16:10 Urine Ketones Tr mg/dL (Negative) 04/04/18 16:10 Urine Blood Lg (Negative) 04/04/18 16:10 Urine Nitrite Neg (Negative) 04/04/18 16:10 Urine Bilirubin Mod (Negative) 04/04/18 16:10 Urine Ictotest Positive (Negative) 04/04/18 16:10 Urine Urobilinogen 4.0 mg/dL (<2.0) 04/04/18 16:10 Ur Leukocyte Esterase Neg (Negative) 04/04/18 16:10 Urine WBC (Auto) 24.0 /HPF (0.0-6.0) H 04/04/18 16:10 Urine RBC (Auto) 3.0 /HPF (0.0-6.0) 04/04/18 16:10 Urine Bacteria (Auto) 2+ /HPF (Negative) 04/04/18 16:10 Urine Mucus 1+ /HPF 04/04/18 16:10 Urine Osmolality 485 Mosm/kg 04/04/18 16:10 Urine Creatinine 136.8 mg/dL (0.1-20.0) H 04/04/18 16:10 Urine Sodium 13 mmol/L 04/04/18 16:10 Urine Chloride 23.9 mmolL (110-250) L 04/04/18 16:10 Plasma/Serum Alcohol 0.20 % (0-0.07) H 04/04/18 03:00 Hepatitis A IgM Ab Non-reactive (NonReactive) 04/05/18 12:52 Hep Bs Antigen Non-reactive (Negative) 04/05/18 12:52 Hep B Core IgM Ab Non-reactive (NonReactive) 04/05/18 12:52 Hepatitis C Antibody Non-reactive (NonReactive) 04/05/18 12:52 Blood Type O POSITIVE 04/04/18 03:00 Antibody Screen Negative 04/04/18 03:00
[2018-04-08] MEDS: SODIUM CHLORIDE PO SCH ×2 (12:47→21:44)
[2018-04-08] MEDS: LASIX IV SCH ×2 (12:54→22:41)
[2018-04-08] MEDS: ALBURX 25% (ALBUMIN) IV SCH ×2 (14:15→22:41)
[2018-04-09 05:46] LABS: Alanine Aminotransferase 62 units/L (7-56); BUN/Creatinine Ratio 30; Blood Urea Nitrogen 6 mg/dL (9-20); Calcium 7.6 mg/dL (8.4-10.2); Hemolysis Index 0
[2018-04-09] MEDS: TESSALON PERLES PO SCH ×3 (06:46→21:14)
--- NOTE | 2018-04-09 08:56 | Gastroenterology Progress Note ---
Subjective Date of service: 04/09/18 Principal diagnosis: ETOH/cirrhosis Interval history: GI: pt w/ etoh hepatitis on steroids - pt alert and seemingly improved today, tolerating po - awaiting labs - continue steroids - follow labs - based on progress hopefully d/c 1-2 days - will follow Objective - Constitutional Vitals: Temp Pulse Resp BP Pulse Ox 98.4 F 105 H 24 116/56 94 04/09/18 08:43 04/09/18 08:00 04/09/18 08:00 04/09/18 08:00 04/09/18 08:00 - Labs CBC & Chem 7: 04/08/18 04:10 04/09/18 04:58 Labs: Laboratory Results - last 24 hr 04/09/18 04:58 Sodium 123 L Potassium 3.7 Chloride 87.1 L Carbon Dioxide 27 Anion Gap 13 BUN 6 L Creatinine < 0.2 L Estimated GFR > 60 BUN/Creatinine Ratio 30 Glucose 113 H Calcium 7.6 L Total Bilirubin 18.00 H AST 249 H ALT 62 H Alkaline Phosphatase 120 Total Protein 7.0 Albumin 3.0 L Albumin/Globulin Ratio 0.8
--- NOTE | 2018-04-09 10:20 | Progress Note ---
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 * Alcohol abuse * Hypomagnesemia * Hypocalcemia Plan: * Na gradually improving * added salt tablets * cirrhosis and liver disease are absolute contraindications to samsca and vap risol * Continue diuresis w/ lasix 20mg IV w/ Albumin q12h * Fluid restriction - 1200ml/day * Alcohol cessation advised * GI/Hepatology recommendations noted * Replete lytes prn * Family continues to give water, worsening the hyponatrema, will continue to follow labs, but overall prognosis is poor and complaince with an issue Subjective Date of service: 04/09/18 Principal diagnosis: ETOH/cirrhosis Interval history: resting well in bed today Objective - Exam Narrative Exam: General appearance: well-developed, other (jaundiced) EENT: sclera incterus Respiratory: Present: Clear to Ascultation Cardiology: regular, S1S2 Gastrointestinal: no tenderness, distended, obese Integumentary: other (jaundice) Neurologic: confused Musculoskeletal: other (+edema) - Vital Signs Vital signs: Vital Signs - 12hr 04/08/18 04/08/18 04/08/18 22:20 22:30 22:40 Temperature Pulse Rate 101 H 102 H 102 H Pulse Rate [ From Monitor] Respiratory 26 H 26 H 31 H Rate Blood Pressure 143/80 143/80 143/80 O2 Sat by Pulse 99 100 100 Oximetry 04/08/18 04/08/18 04/08/18 22:50 23:00 23:10 Temperature Pulse Rate 99 H 101 H 103 H Pulse Rate [ From Monitor] Respiratory 39 H 22 30 H Rate Blood Pressure 143/80 147/87 147/87 O2 Sat by Pulse 100 98 100 Oximetry 04/08/18 04/08/18 04/08/18 23:20 23:30 23:40 Temperature Pulse Rate 102 H 102 H 105 H Pulse Rate [ From Monitor] Respiratory 26 H 19 33 H Rate Blood Pressure 147/87 147/87 147/87 O2 Sat by Pulse 97 Oximetry 04/08/18 04/09/18 04/09/18 23:50 00:00 00:10 Temperature 99.1 F Pulse Rate 103 H Pulse Rate [ 102 H From Monitor] Respiratory 29 H 15 32 H Rate Blood Pressure 147/87 139/84 139/84 O2 Sat by Pulse 97 97 98 Oximetry 04/09/18 04/09/18 04/09/18 00:20 00:30 00:40 Temperature Pulse Rate 107 H 108 H Pulse Rate [ From Monitor] Respiratory 26 H 27 H 18 Rate Blood Pressure 139/84 139/84 139/84 O2 Sat by Pulse 98 96 97 Oximetry 04/09/18 04/09/18 04/09/18 00:50 01:00 01:10 Temperature Pulse Rate 102 H 108 H 113 H Pulse Rate [ From Monitor] Respiratory 25 H 49 H 19 Rate Blood Pressure 139/84 163/95 163/95 O2 Sat by Pulse 98 94 97 Oximetry 04/09/18 04/09/18 04/09/18 01:20 01:30 01:40 Temperature Pulse Rate 101 H 102 H Pulse Rate [ From Monitor] Respiratory 21 17 23 Rate Blood Pressure 163/95 163/95 163/95 O2 Sat by Pulse 97 98 96 Oximetry 04/09/18 04/09/18 04/09/18 01:50 02:00 02:10 Temperature Pulse Rate 106 H 102 H 107 H Pulse Rate [ From Monitor] Respiratory 18 25 H 25 H Rate Blood Pressure 163/95 162/108 162/108 O2 Sat by Pulse 97 94 97 Oximetry 04/09/18 04/09/18 04/09/18 02:20 02:30 02:40 Temperature Pulse Rate 104 H 106 H 101 H Pulse Rate [ From Monitor] Respiratory 37 H 18 27 H Rate Blood Pressure 162/108 162/108 162/108 O2 Sat by Pulse 96 97 97 Oximetry 04/09/18 04/09/18 04/09/18 02:50 03:00 03:10 Temperature Pulse Rate 97 H 97 H 99 H Pulse Rate [ From Monitor] Respiratory 29 H 23 29 H Rate Blood Pressure 162/108 154/96 154/96 O2 Sat by Pulse 97 96 98 Oximetry 04/09/18 04/09/18 04/09/18 03:20 03:30 03:40 Temperature Pulse Rate 98 H 98 H Pulse Rate [ From Monitor] Respiratory 26 H 20 34 H Rate Blood Pressure 154/96 154/96 154/96 O2 Sat by Pulse 96 98 Oximetry 04/09/18 04/09/18 04/09/18 03:50 04:00 04:10 Temperature 97.8 F Pulse Rate 106 H 101 H 98 H Pulse Rate [ 97 H From Monitor] Respiratory 25 H 16 26 H Rate Blood Pressure 154/96 130/77 130/77 O2 Sat by Pulse 98 Oximetry 04/09/18 04/09/18 04/09/18 04:20 04:30 04:40 Temperature Pulse Rate 98 H 96 H 97 H Pulse Rate [ From Monitor] Respiratory 26 H 26 H 32 H Rate Blood Pressure 130/77 130/77 130/77 O2 Sat by Pulse 86 82 L Oximetry 04/09/18 04/09/18 04/09/18 04:50 05:00 05:10 Temperature Pulse Rate 100 H Pulse Rate [ From Monitor] Respiratory 27 H 25 H 31 H Rate Blood Pressure 130/77 120/72 120/72 O2 Sat by Pulse 91 Oximetry 04/09/18 04/09/18 04/09/18 05:20 05:30 05:40 Temperature Pulse Rate 97 H Pulse Rate [ From Monitor] Respiratory 29 H 23 30 H Rate Blood Pressure 120/72 120/72 120/72 O2 Sat by Pulse Oximetry 04/09/18 04/09/18 04/09/18 05:50 06:00 07:00 Temperature Pulse Rate 101 H 96 H 102 H Pulse Rate [ From Monitor] Respiratory 25 H 30 H 27 H Rate Blood Pressure 120/72 145/91 149/85 O2 Sat by Pulse Oximetry 04/09/18 04/09/18 04/09/18 08:00 08:43 09:37 Temperature 98.4 F 98.4 F Pulse Rate 98 H Pulse Rate [ 105 H From Monitor] Respiratory 21 Rate Blood Pressure 116/56 O2 Sat by Pulse 94 96 Oximetry - Lab 04/08/18 04:10 04/09/18 04:58 Most recent lab results Calcium 7.6 mg/dL (8.4-10.2) L 04/09/18 04:58 Magnesium 1.60 mg/dL (1.7-2.3) L 04/04/18 03:00 Urine Creatinine 136.8 mg/dL (0.1-20.0) H 04/04/18 16:10 Urine Sodium 13 mmol/L 04/04/18 16:10 Medications & Allergies - Medications Allergies/Adverse Reactions: Allergies No Known Allergies Allergy (Verified 04/04/18 04:27) Home Medications: Home Medications Medication Instructions Recorded Confirmed Last Taken Type Multivitamin [One Daily 1 each PO DAILY 04/04/18 04/04/18 Unknown History Multivitamin] Active Medications: Generic Name Dose Route Start Last Admin Trade Name Zacq PRN Reason Stop Dose Admin Albumin Human 25 gm 04/06/18 11:00 04/08/18 22:41 Alburx 25% (Albumin) IV 25 gm Q12H DENISE Administration Benzonatate 200 mg 04/09/18 06:00 04/09/18 06:46 Tessalon Perles PO 200 mg Q8HR DENISE Administration Folic Acid 1 mg 04/04/18 10:00 04/08/18 09:50 Folvite PO 1 mg QDAY DENISE Administration Furosemide 20 mg 04/06/18 11:00 04/08/18 22:41 Lasix IV 20 mg Q12H DENISE Administration Guaifenesin 600 mg 04/05/18 14:00 04/08/18 21:44 Mucinex Er PO 600 mg BID DENISE Administration Levofloxacin/Dextrose 500 mg in 100 mls @ 100 mls/hr 04/05/18 14:00 04/08/18 09:50 Levaquin 500mg/100ml IV 100 mls/hr Q24HR DENISE Administration Protocol Lorazepam 4 mg 04/08/18 01:55 Ativan IV Q1H PRN CIWA-Ar 16-25 Morphine Sulfate 2 mg 04/04/18 12:00 04/07/18 22:01 Morphine IV 2 mg Q4H PRN Administration Pain, Moderate (4-6) Ondansetron HCl 4 mg 04/04/18 06:26 Zofran IV Q8H PRN Nausea And Vomiting Prednisolone Sodium Phosphate 40 mg 04/04/18 16:00 04/08/18 09:51 Orapred PO 40 mg DAILY DENISE Administration Sodium Chloride 10 ml 04/04/18 10:00 04/08/18 21:44 Sodium Chloride Flush Syringe 10 Ml IV 10 ml BID DENISE Administration Sodium Chloride 10 ml 04/04/18 06:26 Sodium Chloride Flush Syringe 10 Ml IV PRN PRN LINE FLUSH Sodium Chloride 1 gm 04/08/18 10:00 04/08/18 21:44 Sodium Chloride PO 1 gm BID DENISE Administration Thiamine HCl 100 mg 04/04/18 10:00 04/08/18 09:50 Vitamin B-1 PO 100 mg DAILY DENISE Administration
[2018-04-09] MEDS: MUCINEX ER PO SCH ×2 (10:26→21:15)
[2018-04-09] MEDS: LEVAQUIN 500MG/100ML 500 MG/100 ML BAG IV SCH (10:26)
[2018-04-09] MEDS: FOLVITE PO SCH (10:26)
[2018-04-09] MEDS: ORAPRED PO SCH (10:27)
[2018-04-09] MEDS: SODIUM CHLORIDE PO SCH ×2 (10:27→21:14)
[2018-04-09] MEDS: SODIUM CHLORIDE FLUSH SYRINGE 10 ML IV SCH ×2 (10:28→21:15)
[2018-04-09] MEDS: VITAMIN B-1 PO SCH (10:28)
--- NOTE | 2018-04-09 11:21 | Progress Note ---
Assessment and Plan Assessment and plan: Severe hyponatremia, symptomatic; secondary to alcohol abuse/beer potomania. Sodium improving slowly. Fluid restriction - 1200ml/day. Follow-up BMP Jaundice/Hyperbilirubinemia. Abdominal ultrasound showed hepatic steatosis; no evidence of obstruction or lesion. LFTs trending upward. Continue empiric Antibiotics. Peripheral edema. Continue diuresis w/ lasix 20mg IV w/ Albumin q12h Acute alcoholic hepatitis +/- liver cirrhosis. Laboratory suggestive of cirrhosis with thrombocytopenia and elevated INR EtOH abuse. Continue CIWA protocol. Coagulopathy. Probable cirrhosis. Vitamin K when necessary. Thrombocytopenia. Etiology likely secondary to liver disease. Hypomagnesemia. Replete magnesium. Overall poor prognosis History Interval history: No new issues overnight. Hospitalist Physical - Constitutional Vitals: Temp Pulse Resp BP Pulse Ox 98.4 F 106 H 16 146/83 97 04/09/18 08:43 04/09/18 11:00 04/09/18 11:00 04/09/18 11:00 04/09/18 11:00 General appearance: Present: no acute distress, well-nourished - EENT Eyes: Present: PERRL, EOM intact ENT: hearing intact, clear oral mucosa, dentition normal - Neck Neck: Present: supple, normal ROM - Respiratory Respiratory effort: normal Respiratory: bilateral: CTA - Cardiovascular Rhythm: regular Heart Sounds: Present: S1 & S2. Absent: gallop, rub - Extremities Extremities: no ischemia, No edema, Full ROM - Abdominal General gastrointestinal: soft, non-tender, non-distended, normal bowel sounds - Integumentary Integumentary: Present: clear, warm, dry - Neurologic Neurologic: CNII-XII intact, moves all extremities Results - Labs CBC & Chem 7: 04/08/18 04:10 04/09/18 04:58 Labs: Laboratory Last Values WBC 13.5 K/mm3 (4.5-11.0) H 04/08/18 04:10 RBC 2.30 M/mm3 (3.65-5.03) L 04/08/18 04:10 Hgb 9.2 gm/dl (11.8-15.2) L 04/08/18 04:10 Hct 25.9 % (35.5-45.6) L 04/08/18 04:10 MCV 113 fl (84-94) H 04/08/18 04:10 MCH 40 pg (28-32) H 04/08/18 04:10 MCHC 35 % (32-34) H 04/08/18 04:10 RDW 14.6 % (13.2-15.2) 04/08/18 04:10 Plt Count 91 K/mm3 (140-440) L 04/08/18 04:10 Lymph % (Auto) 13.2 % (13.4-35.0) L 04/08/18 04:10 [place] % (Auto) 13.7 % (0.0-7.3) H 04/08/18 04:10 Eos % (Auto) 0.6 % (0.0-4.3) 04/08/18 04:10 Baso % (Auto) 0.3 % (0.0-1.8) 04/08/18 04:10 Lymph # 1.8 K/mm3 (1.2-5.4) 04/08/18 04:10 [place] # 1.8 K/mm3 (0.0-0.8) H 04/08/18 04:10 Eos # 0.1 K/mm3 (0.0-0.4) 04/08/18 04:10 Baso # 0.0 K/mm3 (0.0-0.1) 04/08/18 04:10 Add Manual Diff Complete 04/05/18 04:59 Total Counted 100 04/05/18 04:59 Seg Neutrophils % 72.2 % (40.0-70.0) H 04/08/18 04:10 Seg Neuts % (Manual) 76.0 % (40.0-70.0) H 04/05/18 04:59 Band Neutrophils % 20.0 % 04/05/18 04:59 Lymphocytes % (Manual) 3.0 % (13.4-35.0) L 04/05/18 04:59 Reactive Lymphs % (Man) 0 % 04/05/18 04:59 Monocytes % (Manual) 1.0 % (0.0-7.3) 04/05/18 04:59 Eosinophils % (Manual) 0 % (0.0-4.3) 04/05/18 04:59 Basophils % (Manual) 0 % (0.0-1.8) 04/05/18 04:59 Metamyelocytes % 0 % 04/05/18 04:59 Myelocytes % 0 % 04/05/18 04:59 Promyelocytes % 0 % 04/05/18 04:59 Blast Cells % 0 % 04/05/18 04:59 Nucleated RBC % Not Reportable 04/05/18 04:59 Seg Neutrophils # 9.8 K/mm3 (1.8-7.7) H 04/08/18 04:10 Seg Neutrophils # Man 9.3 K/mm3 (1.8-7.7) H 04/05/18 04:59 Band Neutrophils # 2.4 K/mm3 04/05/18 04:59 Lymphocytes # (Manual) 0.4 K/mm3 (1.2-5.4) L 04/05/18 04:59 Abs React Lymphs (Man) 0.0 K/mm3 04/05/18 04:59 Monocytes # (Manual) 0.1 K/mm3 (0.0-0.8) 04/05/18 04:59 Eosinophils # (Manual) 0.0 K/mm3 (0.0-0.4) 04/05/18 04:59 Basophils # (Manual) 0.0 K/mm3 (0.0-0.1) 04/05/18 04:59 Metamyelocytes # 0.0 K/mm3 04/05/18 04:59 Myelocytes # 0.0 K/mm3 04/05/18 04:59 Promyelocytes # 0.0 K/mm3 04/05/18 04:59 Blast Cells # 0.0 K/mm3 04/05/18 04:59 WBC Morphology Not Reportable 04/05/18 04:59 Hypersegmented Neuts Not Reportable 04/05/18 04:59 Hyposegmented Neuts Not Reportable 04/05/18 04:59 Hypogranular Neuts Not Reportable 04/05/18 04:59 Smudge Cells Not Reportable 04/05/18 04:59 Toxic Granulation Not Reportable 04/05/18 04:59 Toxic Vacuolation Not Reportable 04/05/18 04:59 Dohle Bodies Not Reportable 04/05/18 04:59 Pelger-Huet Anomaly Not Reportable 04/05/18 04:59 Dannie Rods Not Reportable 04/05/18 04:59 Platelet Estimate Consistent w auto 04/05/18 04:59 Clumped Platelets Not Reportable 04/05/18 04:59 Plt Clumps, EDTA Not Reportable 04/05/18 04:59 Large Platelets Not Reportable 04/05/18 04:59 Giant Platelets Not Reportable 04/05/18 04:59 Platelet Satelliting Not Reportable 04/05/18 04:59 Plt Morphology Comment Not Reportable 04/05/18 04:59 RBC Morphology Not Reportable 04/05/18 04:59 Dimorphic RBCs Not Reportable 04/05/18 04:59 Polychromasia Not Reportable 04/05/18 04:59 Hypochromasia Few 04/05/18 04:59 Poikilocytosis Not Reportable 04/05/18 04:59 Anisocytosis Not Reportable 04/05/18 04:59 Microcytosis Not Reportable 04/05/18 04:59 Macrocytosis 1+ 04/05/18 04:59 Spherocytes Few 04/05/18 04:59 Pappenheimer Bodies Not Reportable 04/05/18 04:59 Sickle Cells Not Reportable 04/05/18 04:59 Target Cells Few 04/05/18 04:59 Tear Drop Cells Not Reportable 04/05/18 04:59 Ovalocytes Not Reportable 04/05/18 04:59 Helmet Cells Not Reportable 04/05/18 04:59 [place] Bodies Not Reportable 04/05/18 04:59 Padroni Rings Not Reportable 04/05/18 04:59 [place] Cells Not Reportable 04/05/18 04:59 Bite Cells Not Reportable 04/05/18 04:59 Crenated Cell Not Reportable 04/05/18 04:59 Elliptocytes Not Reportable 04/05/18 04:59 Acanthocytes (Spur) Not Reportable 04/05/18 04:59 Rouleaux Not Reportable 04/05/18 04:59 Hemoglobin C Crystals Not Reportable 04/05/18 04:59 Schistocytes Not Reportable 04/05/18 04:59 Malaria parasites Not Reportable 04/05/18 04:59 Slick Bodies Not Reportable 04/05/18 04:59 Hem Pathologist Commnt No 04/05/18 04:59 PT 28.1 Sec. (12.2-14.9) H 04/08/18 04:10 INR 2.59 (0.87-1.13) H 04/08/18 04:10 APTT 59.4 Sec. (24.2-36.6) H 04/05/18 04:59 Sodium 123 mmol/L (137-145) L 04/09/18 04:58 Potassium 3.7 mmol/L (3.6-5.0) 04/09/18 04:58 Chloride 87.1 mmol/L (98-107) L 04/09/18 04:58 Carbon Dioxide 27 mmol/L (22-30) 04/09/18 04:58 Anion Gap 13 mmol/L 04/09/18 04:58 BUN 6 mg/dL (9-20) L 04/09/18 04:58 Creatinine < 0.2 mg/dL (0.8-1.5) L 04/09/18 04:58 Estimated GFR > 60 ml/min 04/09/18 04:58 BUN/Creatinine Ratio 30 % 04/09/18 04:58 Glucose 113 mg/dL (75-100) H 04/09/18 04:58 POC Glucose 132 (70-105) H 04/04/18 21:37 Osmolality 270 Mosm/kg 04/04/18 07:55 Calcium 7.6 mg/dL (8.4-10.2) L 04/09/18 04:58 Magnesium 1.60 mg/dL (1.7-2.3) L 04/04/18 03:00 Total Bilirubin 18.00 mg/dL (0.1-1.2) H 04/09/18 04:58 Direct Bilirubin 9.7 mg/dL (0-0.2) H 04/06/18 03:50 Indirect Bilirubin 5.6 mg/dL 04/06/18 03:50 AST 249 units/L (5-40) H 04/09/18 04:58 ALT 62 units/L (7-56) H 04/09/18 04:58 Alkaline Phosphatase 120 units/L (35-129) 04/09/18 04:58 Ammonia 93.0 umol/L (25-60) H 04/06/18 08:36 NT-Pro-B Natriuret Pep 519.7 pg/mL (0-450) H 04/04/18 03:00 Total Protein 7.0 g/dL (6.3-8.2) 04/09/18 04:58 Albumin 3.0 g/dL (3.9-5) L 04/09/18 04:58 Albumin/Globulin Ratio 0.8 % 04/09/18 04:58 Lipase 121 units/L (13-60) H 04/04/18 03:00 TSH 2.320 mlU/mL (0.270-4.200) 04/04/18 03:00 Free T4 1.25 ng/dL (0.76-1.46) 04/04/18 03:00 Urine Color [place] (Yellow) 04/04/18 16:10 Urine Turbidity Cloudy (Clear) 04/04/18 16:10 Urine pH 6.0 (5.0-7.0) 04/04/18 16:10 Ur Specific [place] 1.017 (1.003-1.030) 04/04/18 16:10 Urine Protein 30 mg/dl mg/dL (Negative) 04/04/18 16:10 Urine Glucose (UA) 50 mg/dL (Negative) 04/04/18 16:10 Urine Ketones Tr mg/dL (Negative) 04/04/18 16:10 Urine Blood Lg (Negative) 04/04/18 16:10 Urine Nitrite Neg (Negative) 04/04/18 16:10 Urine Bilirubin Mod (Negative) 04/04/18 16:10 Urine Ictotest Positive (Negative) 04/04/18 16:10 Urine Urobilinogen 4.0 mg/dL (<2.0) 04/04/18 16:10 Ur Leukocyte Esterase Neg (Negative) 04/04/18 16:10 Urine WBC (Auto) 24.0 /HPF (0.0-6.0) H 04/04/18 16:10 Urine RBC (Auto) 3.0 /HPF (0.0-6.0) 04/04/18 16:10 Urine Bacteria (Auto) 2+ /HPF (Negative) 04/04/18 16:10 Urine Mucus 1+ /HPF 04/04/18 16:10 Urine Osmolality 485 Mosm/kg 04/04/18 16:10 Urine Creatinine 136.8 mg/dL (0.1-20.0) H 04/04/18 16:10 Urine Sodium 13 mmol/L 04/04/18 16:10 Urine Chloride 23.9 mmolL (110-250) L 04/04/18 16:10 Plasma/Serum Alcohol 0.20 % (0-0.07) H 04/04/18 03:00 Hepatitis A IgM Ab Non-reactive (NonReactive) 04/05/18 12:52 Hep Bs Antigen Non-reactive (Negative) 04/05/18 12:52 Hep B Core IgM Ab Non-reactive (NonReactive) 04/05/18 12:52 Hepatitis C Antibody Non-reactive (NonReactive) 04/05/18 12:52 Blood Type O POSITIVE 04/04/18 03:00 Antibody Screen Negative 04/04/18 03:00
[2018-04-09] MEDS: LASIX IV SCH (14:00)
[2018-04-09] MEDS: ALBURX 25% (ALBUMIN) IV SCH (15:03)
[2018-04-10] MEDS: ALBURX 25% (ALBUMIN) IV SCH ×3 (01:37→22:01)
[2018-04-10] MEDS: LASIX IV SCH ×3 (01:42→22:16)
[2018-04-10 04:11] LABS: Albumin 3.2 g/dL (3.9-5); BUN/Creatinine Ratio 30; Blood Urea Nitrogen 6 mg/dL (9-20); Calcium 7.9 mg/dL (8.4-10.2); Hemolysis Index 108
[2018-04-10 04:13] LABS: Alanine Aminotransferase 61 units/L (7-56)
[2018-04-10] MEDS: TESSALON PERLES PO SCH ×3 (06:38→21:59)
[2018-04-10] MEDS: LEVAQUIN 500MG/100ML 500 MG/100 ML BAG IV SCH (09:41)
[2018-04-10] MEDS: FOLVITE PO SCH (09:41)
[2018-04-10] MEDS: MUCINEX ER PO SCH ×2 (09:42→22:00)
[2018-04-10] MEDS: SODIUM CHLORIDE PO SCH ×2 (09:42→21:57)
[2018-04-10] MEDS: ORAPRED PO SCH (09:42)
[2018-04-10] MEDS: VITAMIN B-1 PO SCH (09:43)
[2018-04-10] MEDS: SODIUM CHLORIDE FLUSH SYRINGE 10 ML IV SCH ×2 (09:43→21:58)
--- NOTE | 2018-04-10 10:01 | Gastroenterology Progress Note ---
Assessment and Plan GI: pt w/ etoh hepatitis on steroids - pt alert and seemingly improved today, tolerating po - noted T. bili relatively unchanged, decrease ast/alt - continue steroids at this time, - follow labs including co-ags and LFT's - pt overall prognosis poor but seemingly improving - no changes at this time, will follow closely - ETOH withdrawal per primary team Subjective Date of service: 04/10/18 Principal diagnosis: ETOH/cirrhosis Interval history: - pt reports feeling better. Denies specific GI complaints at this time Objective - Constitutional Vitals: Temp Pulse Resp BP Pulse Ox 99.0 F 101 H 22 126/62 93 04/10/18 08:00 04/10/18 08:00 04/10/18 08:00 04/10/18 08:00 04/10/18 09:00 General appearance: no acute distress - EENT Eyes: scleral icterus - Respiratory Respiratory: bilateral: CTA - Cardiovascular Rhythm: regular Heart Sounds: Present: S1 & S2 - Gastrointestinal General gastrointestinal: Present: soft, non-tender, non-distended - Labs CBC & Chem 7: 04/08/18 04:10 04/10/18 03:25 Labs: Laboratory Results - last 24 hr 04/10/18 03:25 Sodium 120 L Potassium 4.1 Chloride 87.6 L Carbon Dioxide 24 Anion Gap 13 BUN 6 L Creatinine < 0.2 L Estimated GFR > 60 BUN/Creatinine Ratio 30 Glucose 94 Calcium 7.9 L Total Bilirubin 18.30 H AST 223 H ALT 61 H Alkaline Phosphatase 82 Total Protein 6.9 Albumin 3.2 L Albumin/Globulin Ratio 0.9
--- NOTE | 2018-04-10 11:57 | Progress Note ---
Assessment and Plan Assessment and plan: Severe hyponatremia, symptomatic; secondary to alcohol abuse/beer potomania. Sodium improving slowly. Fluid restriction - 1200ml/day. Follow-up BMP Jaundice/Hyperbilirubinemia. Abdominal ultrasound showed hepatic steatosis; no evidence of obstruction or lesion. LFTs trending upward. Continue empiric Antibiotics. Peripheral edema. Continue diuresis w/ lasix 20mg IV w/ Albumin q12h Acute alcoholic hepatitis +/- liver cirrhosis. Laboratory suggestive of cirrhosis with thrombocytopenia and elevated INR EtOH abuse. Continue CIWA protocol. Alcohol cessation advised Coagulopathy. Etiology secondary to cirrhosis. Vitamin K when necessary. Thrombocytopenia. Etiology likely secondary to liver disease. Hypomagnesemia. Replete magnesium. Overall poor prognosis History Interval history: No new issues overnight. Hospitalist Physical - Constitutional Vitals: Temp Pulse Resp BP Pulse Ox 99.6 F 100 H 22 126/62 93 04/10/18 11:53 04/10/18 10:00 04/10/18 08:00 04/10/18 08:00 04/10/18 09:00 General appearance: Present: no acute distress, well-nourished - EENT Eyes: Present: PERRL, EOM intact ENT: hearing intact, clear oral mucosa, dentition normal - Neck Neck: Present: supple, normal ROM - Respiratory Respiratory effort: normal Respiratory: bilateral: CTA - Cardiovascular Rhythm: regular Heart Sounds: Present: S1 & S2. Absent: gallop, rub - Extremities Extremities: no ischemia, No edema, Full ROM - Abdominal General gastrointestinal: soft, non-tender, non-distended, normal bowel sounds - Integumentary Integumentary: Present: clear, warm, dry - Neurologic Neurologic: CNII-XII intact, moves all extremities Results - Labs CBC & Chem 7: 04/08/18 04:10 04/10/18 03:25 Labs: Laboratory Last Values WBC 13.5 K/mm3 (4.5-11.0) H 04/08/18 04:10 RBC 2.30 M/mm3 (3.65-5.03) L 04/08/18 04:10 Hgb 9.2 gm/dl (11.8-15.2) L 04/08/18 04:10 Hct 25.9 % (35.5-45.6) L 04/08/18 04:10 MCV 113 fl (84-94) H 04/08/18 04:10 MCH 40 pg (28-32) H 04/08/18 04:10 MCHC 35 % (32-34) H 04/08/18 04:10 RDW 14.6 % (13.2-15.2) 04/08/18 04:10 Plt Count 91 K/mm3 (140-440) L 04/08/18 04:10 Lymph % (Auto) 13.2 % (13.4-35.0) L 04/08/18 04:10 [place] % (Auto) 13.7 % (0.0-7.3) H 04/08/18 04:10 Eos % (Auto) 0.6 % (0.0-4.3) 04/08/18 04:10 Baso % (Auto) 0.3 % (0.0-1.8) 04/08/18 04:10 Lymph # 1.8 K/mm3 (1.2-5.4) 04/08/18 04:10 [place] # 1.8 K/mm3 (0.0-0.8) H 04/08/18 04:10 Eos # 0.1 K/mm3 (0.0-0.4) 04/08/18 04:10 Baso # 0.0 K/mm3 (0.0-0.1) 04/08/18 04:10 Add Manual Diff Complete 04/05/18 04:59 Total Counted 100 04/05/18 04:59 Seg Neutrophils % 72.2 % (40.0-70.0) H 04/08/18 04:10 Seg Neuts % (Manual) 76.0 % (40.0-70.0) H 04/05/18 04:59 Band Neutrophils % 20.0 % 04/05/18 04:59 Lymphocytes % (Manual) 3.0 % (13.4-35.0) L 04/05/18 04:59 Reactive Lymphs % (Man) 0 % 04/05/18 04:59 Monocytes % (Manual) 1.0 % (0.0-7.3) 04/05/18 04:59 Eosinophils % (Manual) 0 % (0.0-4.3) 04/05/18 04:59 Basophils % (Manual) 0 % (0.0-1.8) 04/05/18 04:59 Metamyelocytes % 0 % 04/05/18 04:59 Myelocytes % 0 % 04/05/18 04:59 Promyelocytes % 0 % 04/05/18 04:59 Blast Cells % 0 % 04/05/18 04:59 Nucleated RBC % Not Reportable 04/05/18 04:59 Seg Neutrophils # 9.8 K/mm3 (1.8-7.7) H 04/08/18 04:10 Seg Neutrophils # Man 9.3 K/mm3 (1.8-7.7) H 04/05/18 04:59 Band Neutrophils # 2.4 K/mm3 04/05/18 04:59 Lymphocytes # (Manual) 0.4 K/mm3 (1.2-5.4) L 04/05/18 04:59 Abs React Lymphs (Man) 0.0 K/mm3 04/05/18 04:59 Monocytes # (Manual) 0.1 K/mm3 (0.0-0.8) 04/05/18 04:59 Eosinophils # (Manual) 0.0 K/mm3 (0.0-0.4) 04/05/18 04:59 Basophils # (Manual) 0.0 K/mm3 (0.0-0.1) 04/05/18 04:59 Metamyelocytes # 0.0 K/mm3 04/05/18 04:59 Myelocytes # 0.0 K/mm3 04/05/18 04:59 Promyelocytes # 0.0 K/mm3 04/05/18 04:59 Blast Cells # 0.0 K/mm3 04/05/18 04:59 WBC Morphology Not Reportable 04/05/18 04:59 Hypersegmented Neuts Not Reportable 04/05/18 04:59 Hyposegmented Neuts Not Reportable 04/05/18 04:59 Hypogranular Neuts Not Reportable 04/05/18 04:59 Smudge Cells Not Reportable 04/05/18 04:59 Toxic Granulation Not Reportable 04/05/18 04:59 Toxic Vacuolation Not Reportable 04/05/18 04:59 Dohle Bodies Not Reportable 04/05/18 04:59 Pelger-Huet Anomaly Not Reportable 04/05/18 04:59 Dannie Rods Not Reportable 04/05/18 04:59 Platelet Estimate Consistent w auto 04/05/18 04:59 Clumped Platelets Not Reportable 04/05/18 04:59 Plt Clumps, EDTA Not Reportable 04/05/18 04:59 Large Platelets Not Reportable 04/05/18 04:59 Giant Platelets Not Reportable 04/05/18 04:59 Platelet Satelliting Not Reportable 04/05/18 04:59 Plt Morphology Comment Not Reportable 04/05/18 04:59 RBC Morphology Not Reportable 04/05/18 04:59 Dimorphic RBCs Not Reportable 04/05/18 04:59 Polychromasia Not Reportable 04/05/18 04:59 Hypochromasia Few 04/05/18 04:59 Poikilocytosis Not Reportable 04/05/18 04:59 Anisocytosis Not Reportable 04/05/18 04:59 Microcytosis Not Reportable 04/05/18 04:59 Macrocytosis 1+ 04/05/18 04:59 Spherocytes Few 04/05/18 04:59 Pappenheimer Bodies Not Reportable 04/05/18 04:59 Sickle Cells Not Reportable 04/05/18 04:59 Target Cells Few 04/05/18 04:59 Tear Drop Cells Not Reportable 04/05/18 04:59 Ovalocytes Not Reportable 04/05/18 04:59 Helmet Cells Not Reportable 04/05/18 04:59 [place] Bodies Not Reportable 04/05/18 04:59 [place] Rings Not Reportable 04/05/18 04:59 [place] Cells Not Reportable 04/05/18 04:59 Bite Cells Not Reportable 04/05/18 04:59 Crenated Cell Not Reportable 04/05/18 04:59 Elliptocytes Not Reportable 04/05/18 04:59 Acanthocytes (Spur) Not Reportable 04/05/18 04:59 Rouleaux Not Reportable 04/05/18 04:59 Hemoglobin C Crystals Not Reportable 04/05/18 04:59 Schistocytes Not Reportable 04/05/18 04:59 Malaria parasites Not Reportable 04/05/18 04:59 Slick Bodies Not Reportable 04/05/18 04:59 Hem Pathologist Commnt No 04/05/18 04:59 PT 28.1 Sec. (12.2-14.9) H 04/08/18 04:10 INR 2.59 (0.87-1.13) H 04/08/18 04:10 APTT 59.4 Sec. (24.2-36.6) H 04/05/18 04:59 Sodium 120 mmol/L (137-145) L 04/10/18 03:25 Potassium 4.1 mmol/L (3.6-5.0) 04/10/18 03:25 Chloride 87.6 mmol/L (98-107) L 04/10/18 03:25 Carbon Dioxide 24 mmol/L (22-30) 04/10/18 03:25 Anion Gap 13 mmol/L 04/10/18 03:25 BUN 6 mg/dL (9-20) L 04/10/18 03:25 Creatinine < 0.2 mg/dL (0.8-1.5) L 04/10/18 03:25 Estimated GFR > 60 ml/min 04/10/18 03:25 BUN/Creatinine Ratio 30 % 04/10/18 03:25 Glucose 94 mg/dL (75-100) 04/10/18 03:25 POC Glucose 132 (70-105) H 04/04/18 21:37 Osmolality 270 Mosm/kg 04/04/18 07:55 Calcium 7.9 mg/dL (8.4-10.2) L 04/10/18 03:25 Magnesium 1.60 mg/dL (1.7-2.3) L 04/04/18 03:00 Total Bilirubin 18.30 mg/dL (0.1-1.2) H 04/10/18 03:25 Direct Bilirubin 9.7 mg/dL (0-0.2) H 04/06/18 03:50 Indirect Bilirubin 5.6 mg/dL 04/06/18 03:50 AST 223 units/L (5-40) H 04/10/18 03:25 ALT 61 units/L (7-56) H 04/10/18 03:25 Alkaline Phosphatase 82 units/L (35-129) 04/10/18 03:25 Ammonia 93.0 umol/L (25-60) H 04/06/18 08:36 NT-Pro-B Natriuret Pep 519.7 pg/mL (0-450) H 04/04/18 03:00 Total Protein 6.9 g/dL (6.3-8.2) 04/10/18 03:25 Albumin 3.2 g/dL (3.9-5) L 04/10/18 03:25 Albumin/Globulin Ratio 0.9 % 04/10/18 03:25 Lipase 121 units/L (13-60) H 04/04/18 03:00 TSH 2.320 mlU/mL (0.270-4.200) 04/04/18 03:00 Free T4 1.25 ng/dL (0.76-1.46) 04/04/18 03:00 Urine Color [place] (Yellow) 04/04/18 16:10 Urine Turbidity Cloudy (Clear) 04/04/18 16:10 Urine pH 6.0 (5.0-7.0) 04/04/18 16:10 Ur Specific [place] 1.017 (1.003-1.030) 04/04/18 16:10 Urine Protein 30 mg/dl mg/dL (Negative) 04/04/18 16:10 Urine Glucose (UA) 50 mg/dL (Negative) 04/04/18 16:10 Urine Ketones Tr mg/dL (Negative) 04/04/18 16:10 Urine Blood Lg (Negative) 04/04/18 16:10 Urine Nitrite Neg (Negative) 04/04/18 16:10 Urine Bilirubin Mod (Negative) 04/04/18 16:10 Urine Ictotest Positive (Negative) 04/04/18 16:10 Urine Urobilinogen 4.0 mg/dL (<2.0) 04/04/18 16:10 Ur Leukocyte Esterase Neg (Negative) 04/04/18 16:10 Urine WBC (Auto) 24.0 /HPF (0.0-6.0) H 04/04/18 16:10 Urine RBC (Auto) 3.0 /HPF (0.0-6.0) 04/04/18 16:10 Urine Bacteria (Auto) 2+ /HPF (Negative) 04/04/18 16:10 Urine Mucus 1+ /HPF 04/04/18 16:10 Urine Osmolality 485 Mosm/kg 04/04/18 16:10 Urine Creatinine 136.8 mg/dL (0.1-20.0) H 04/04/18 16:10 Urine Sodium 13 mmol/L 04/04/18 16:10 Urine Chloride 23.9 mmolL (110-250) L 04/04/18 16:10 Plasma/Serum Alcohol 0.20 % (0-0.07) H 04/04/18 03:00 Hepatitis A IgM Ab Non-reactive (NonReactive) 04/05/18 12:52 Hep Bs Antigen Non-reactive (Negative) 04/05/18 12:52 Hep B Core IgM Ab Non-reactive (NonReactive) 04/05/18 12:52 Hepatitis C Antibody Non-reactive (NonReactive) 04/05/18 12:52 Blood Type O POSITIVE 04/04/18 03:00 Antibody Screen Negative 04/04/18 03:00
--- NOTE | 2018-04-10 12:03 | Progress Note ---
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 * Alcohol abuse * Hypomagnesemia * Hypocalcemia Plan: * Na gradually improving * added salt tablets--increase to TID * cirrhosis and liver disease are absolute contraindications to samsca and vaprisol * Continue diuresis w/ lasix 20mg IV w/ Albumin q12h * Fluid restriction - 1200ml/day * Alcohol cessation advised * GI/Hepatology recommendations noted * Replete lytes prn * Family continues to give water, worsening the hyponatrema, will continue to follow labs, but overall prognosis is poor and complaince with an issue Subjective Date of service: 04/10/18 Principal diagnosis: ETOH/cirrhosis Interval history: resting well in bed today Objective - Exam Narrative Exam: General appearance: well-developed, other (jaundiced) EENT: sclera incterus Respiratory: Present: Clear to Ascultation Cardiology: regular, S1S2 Gastrointestinal: no tenderness, distended, obese Integumentary: other (jaundice) Neurologic: confused Musculoskeletal: other (+edema) - Vital Signs Vital signs: Vital Signs - 12hr 04/10/18 04/10/18 04/10/18 01:00 02:00 03:00 Temperature Pulse Rate 96 H Pulse Rate [ From Monitor] Respiratory 23 18 Rate Blood Pressure 181/103 174/100 165/98 O2 Sat by Pulse 95 95 96 Oximetry 04/10/18 04/10/18 04/10/18 04:00 05:00 06:00 Temperature 97.4 F L Pulse Rate 93 H 96 H 94 H Pulse Rate [ 95 H From Monitor] Respiratory 23 31 H 30 H Rate Blood Pressure 159/84 133/77 144/99 O2 Sat by Pulse 96 99 97 Oximetry 04/10/18 04/10/18 04/10/18 07:00 08:00 09:00 Temperature 99.0 F Pulse Rate 94 H 95 H Pulse Rate [ 101 H From Monitor] Respiratory 24 24 Rate Blood Pressure 135/78 126/62 O2 Sat by Pulse 59 L 97 93 Oximetry 04/10/18 04/10/18 10:00 11:53 Temperature 99.6 F Pulse Rate 100 H Pulse Rate [ From Monitor] Respiratory Rate Blood Pressure O2 Sat by Pulse Oximetry - Lab 04/08/18 04:10 04/10/18 03:25 Most recent lab results Calcium 7.9 mg/dL (8.4-10.2) L 04/10/18 03:25 Magnesium 1.60 mg/dL (1.7-2.3) L 04/04/18 03:00 Urine Creatinine 136.8 mg/dL (0.1-20.0) H 04/04/18 16:10 Urine Sodium 13 mmol/L 04/04/18 16:10 Medications & Allergies - Medications Allergies/Adverse Reactions: Allergies No Known Allergies Allergy (Verified 04/04/18 04:27) Home Medications: Home Medications Medication Instructions Recorded Confirmed Last Taken Type Multivitamin [One Daily 1 each PO DAILY 04/04/18 04/04/18 Unknown History Multivitamin] Active Medications: Generic Name Dose Route Start Last Admin Trade Name Freq PRN Reason Stop Dose Admin Albumin Human 25 gm 04/06/18 11:00 04/10/18 01:37 Alburx 25% (Albumin) IV 25 gm Q12H DENISE Administration Benzonatate 200 mg 04/09/18 06:00 04/10/18 06:38 Tessalon Perles PO 200 mg Q8HR DENISE Administration Folic Acid 1 mg 04/04/18 10:00 04/10/18 09:41 Folvite PO 1 mg QDAY DENISE Administration Furosemide 20 mg 04/06/18 11:00 04/10/18 01:42 Lasix IV 20 mg Q12H DENISE Administration Guaifenesin 600 mg 04/05/18 14:00 04/10/18 09:42 Mucinex Er PO 600 mg BID DENISE Administration Levofloxacin/Dextrose 500 mg in 100 mls @ 100 mls/hr 04/05/18 14:00 04/10/18 09:41 Levaquin 500mg/100ml IV 100 mls/hr Q24HR DENISE Administration Protocol Lorazepam 4 mg 04/08/18 01:55 Ativan IV Q1H PRN IVETTE-Kyle 16-25 Morphine Sulfate 2 mg 04/04/18 12:00 04/07/18 22:01 Morphine IV 2 mg Q4H PRN Administration Pain, Moderate (4-6) Ondansetron HCl 4 mg 04/04/18 06:26 Zofran IV Q8H PRN Nausea And Vomiting Prednisolone Sodium Phosphate 40 mg 04/04/18 16:00 04/10/18 09:42 Orapred PO 40 mg DAILY DENISE Administration Sodium Chloride 10 ml 04/04/18 10:00 04/10/18 09:43 Sodium Chloride Flush Syringe 10 Ml IV 10 ml BID DENISE Administration Sodium Chloride 10 ml 04/04/18 06:26 Sodium Chloride Flush Syringe 10 Ml IV PRN PRN LINE FLUSH Sodium Chloride 1 gm 04/08/18 10:00 04/10/18 09:42 Sodium Chloride PO 1 gm BID DENISE Administration Thiamine HCl 100 mg 04/04/18 10:00 04/10/18 09:43 Vitamin B-1 PO 100 mg DAILY DENISE Administration
[2018-04-10] MEDS: ALDACTONE PO SCH (12:44)
[2018-04-11] MEDS: TESSALON PERLES PO SCH ×3 (05:21→22:09)
[2018-04-11 06:10] LABS: Alanine Aminotransferase 60 units/L (7-56); Albumin 3.4 g/dL (3.9-5); BUN/Creatinine Ratio 35; Blood Urea Nitrogen 7 mg/dL (9-20); Calcium 7.9 mg/dL (8.4-10.2); Hemolysis Index 0
--- NOTE | 2018-04-11 10:10 | Progress Note ---
Assessment and Plan Assessment and plan: Severe hyponatremia, symptomatic; secondary to alcohol abuse/beer potomania. Sodium improving slowly. Fluid restriction - 1200ml/day. Follow-up BMP Jaundice/Hyperbilirubinemia. Abdominal ultrasound showed hepatic steatosis; no evidence of obstruction or lesion. LFTs trending upward. Continue empiric Antibiotics. Peripheral edema. Continue diuresis w/ lasix 20mg IV w/ Albumin q12h Acute alcoholic hepatitis +/- liver cirrhosis. Laboratory suggestive of cirrhosis with thrombocytopenia and elevated INR EtOH abuse. Continue CIWA protocol. Alcohol cessation advised Coagulopathy. Etiology secondary to cirrhosis. Vitamin K when necessary. Thrombocytopenia. Etiology likely secondary to liver disease. Hypomagnesemia. Replete magnesium. Overall poor prognosis Disposition. PT evaluation. History Interval history: No new issues overnight. Hospitalist Physical - Constitutional Vitals: Temp Pulse Resp BP Pulse Ox 98.2 F 67 11 L 132/84 97 04/11/18 08:00 04/11/18 08:00 04/11/18 08:00 04/11/18 08:00 04/11/18 08:00 General appearance: Present: no acute distress, well-nourished - EENT Eyes: Present: PERRL, EOM intact ENT: hearing intact, clear oral mucosa, dentition normal - Neck Neck: Present: supple, normal ROM - Respiratory Respiratory effort: normal Respiratory: bilateral: CTA - Cardiovascular Rhythm: regular Heart Sounds: Present: S1 & S2. Absent: gallop, rub - Extremities Extremities: no ischemia, No edema, Full ROM - Abdominal General gastrointestinal: soft, non-tender, non-distended, normal bowel sounds - Integumentary Integumentary: Present: clear, warm, dry - Neurologic Neurologic: CNII-XII intact, moves all extremities Results - Labs CBC & Chem 7: 04/08/18 04:10 04/11/18 05:17 Labs: Laboratory Last Values WBC 13.5 K/mm3 (4.5-11.0) H 04/08/18 04:10 RBC 2.30 M/mm3 (3.65-5.03) L 04/08/18 04:10 Hgb 9.2 gm/dl (11.8-15.2) L 04/08/18 04:10 Hct 25.9 % (35.5-45.6) L 04/08/18 04:10 MCV 113 fl (84-94) H 04/08/18 04:10 MCH 40 pg (28-32) H 04/08/18 04:10 MCHC 35 % (32-34) H 04/08/18 04:10 RDW 14.6 % (13.2-15.2) 04/08/18 04:10 Plt Count 91 K/mm3 (140-440) L 04/08/18 04:10 Lymph % (Auto) 13.2 % (13.4-35.0) L 04/08/18 04:10 [place] % (Auto) 13.7 % (0.0-7.3) H 04/08/18 04:10 Eos % (Auto) 0.6 % (0.0-4.3) 04/08/18 04:10 Baso % (Auto) 0.3 % (0.0-1.8) 04/08/18 04:10 Lymph # 1.8 K/mm3 (1.2-5.4) 04/08/18 04:10 [place] # 1.8 K/mm3 (0.0-0.8) H 04/08/18 04:10 Eos # 0.1 K/mm3 (0.0-0.4) 04/08/18 04:10 Baso # 0.0 K/mm3 (0.0-0.1) 04/08/18 04:10 Add Manual Diff Complete 04/05/18 04:59 Total Counted 100 04/05/18 04:59 Seg Neutrophils % 72.2 % (40.0-70.0) H 04/08/18 04:10 Seg Neuts % (Manual) 76.0 % (40.0-70.0) H 04/05/18 04:59 Band Neutrophils % 20.0 % 04/05/18 04:59 Lymphocytes % (Manual) 3.0 % (13.4-35.0) L 04/05/18 04:59 Reactive Lymphs % (Man) 0 % 04/05/18 04:59 Monocytes % (Manual) 1.0 % (0.0-7.3) 04/05/18 04:59 Eosinophils % (Manual) 0 % (0.0-4.3) 04/05/18 04:59 Basophils % (Manual) 0 % (0.0-1.8) 04/05/18 04:59 Metamyelocytes % 0 % 04/05/18 04:59 Myelocytes % 0 % 04/05/18 04:59 Promyelocytes % 0 % 04/05/18 04:59 Blast Cells % 0 % 04/05/18 04:59 Nucleated RBC % Not Reportable 04/05/18 04:59 Seg Neutrophils # 9.8 K/mm3 (1.8-7.7) H 04/08/18 04:10 Seg Neutrophils # Man 9.3 K/mm3 (1.8-7.7) H 04/05/18 04:59 Band Neutrophils # 2.4 K/mm3 04/05/18 04:59 Lymphocytes # (Manual) 0.4 K/mm3 (1.2-5.4) L 04/05/18 04:59 Abs React Lymphs (Man) 0.0 K/mm3 04/05/18 04:59 Monocytes # (Manual) 0.1 K/mm3 (0.0-0.8) 04/05/18 04:59 Eosinophils # (Manual) 0.0 K/mm3 (0.0-0.4) 04/05/18 04:59 Basophils # (Manual) 0.0 K/mm3 (0.0-0.1) 04/05/18 04:59 Metamyelocytes # 0.0 K/mm3 04/05/18 04:59 Myelocytes # 0.0 K/mm3 04/05/18 04:59 Promyelocytes # 0.0 K/mm3 04/05/18 04:59 Blast Cells # 0.0 K/mm3 04/05/18 04:59 WBC Morphology Not Reportable 04/05/18 04:59 Hypersegmented Neuts Not Reportable 04/05/18 04:59 Hyposegmented Neuts Not Reportable 04/05/18 04:59 Hypogranular Neuts Not Reportable 04/05/18 04:59 Smudge Cells Not Reportable 04/05/18 04:59 Toxic Granulation Not Reportable 04/05/18 04:59 Toxic Vacuolation Not Reportable 04/05/18 04:59 Dohle Bodies Not Reportable 04/05/18 04:59 Pelger-Huet Anomaly Not Reportable 04/05/18 04:59 Dannie Rods Not Reportable 04/05/18 04:59 Platelet Estimate Consistent w auto 04/05/18 04:59 Clumped Platelets Not Reportable 04/05/18 04:59 Plt Clumps, EDTA Not Reportable 04/05/18 04:59 Large Platelets Not Reportable 04/05/18 04:59 Giant Platelets Not Reportable 04/05/18 04:59 Platelet Satelliting Not Reportable 04/05/18 04:59 Plt Morphology Comment Not Reportable 04/05/18 04:59 RBC Morphology Not Reportable 04/05/18 04:59 Dimorphic RBCs Not Reportable 04/05/18 04:59 Polychromasia Not Reportable 04/05/18 04:59 Hypochromasia Few 04/05/18 04:59 Poikilocytosis Not Reportable 04/05/18 04:59 Anisocytosis Not Reportable 04/05/18 04:59 Microcytosis Not Reportable 04/05/18 04:59 Macrocytosis 1+ 04/05/18 04:59 Spherocytes Few 04/05/18 04:59 Pappenheimer Bodies Not Reportable 04/05/18 04:59 Sickle Cells Not Reportable 04/05/18 04:59 Target Cells Few 04/05/18 04:59 Tear Drop Cells Not Reportable 04/05/18 04:59 Ovalocytes Not Reportable 04/05/18 04:59 Helmet Cells Not Reportable 04/05/18 04:59 [place] Bodies Not Reportable 04/05/18 04:59 [place] Rings Not Reportable 04/05/18 04:59 [place] Cells Not Reportable 04/05/18 04:59 Bite Cells Not Reportable 04/05/18 04:59 Crenated Cell Not Reportable 04/05/18 04:59 Elliptocytes Not Reportable 04/05/18 04:59 Acanthocytes (Spur) Not Reportable 04/05/18 04:59 Rouleaux Not Reportable 04/05/18 04:59 Hemoglobin C Crystals Not Reportable 04/05/18 04:59 Schistocytes Not Reportable 04/05/18 04:59 Malaria parasites Not Reportable 04/05/18 04:59 Slick Bodies Not Reportable 04/05/18 04:59 Hem Pathologist Commnt No 04/05/18 04:59 PT 28.1 Sec. (12.2-14.9) H 04/08/18 04:10 INR 2.59 (0.87-1.13) H 04/08/18 04:10 APTT 59.4 Sec. (24.2-36.6) H 04/05/18 04:59 Sodium 124 mmol/L (137-145) L 04/11/18 05:17 Potassium 3.3 mmol/L (3.6-5.0) L 04/11/18 05:17 Chloride 90.8 mmol/L (98-107) L 04/11/18 05:17 Carbon Dioxide 24 mmol/L (22-30) 04/11/18 05:17 Anion Gap 13 mmol/L 04/11/18 05:17 BUN 7 mg/dL (9-20) L 04/11/18 05:17 Creatinine < 0.2 mg/dL (0.8-1.5) L 04/11/18 05:17 Estimated GFR > 60 ml/min 04/11/18 05:17 BUN/Creatinine Ratio 35 % 04/11/18 05:17 Glucose 95 mg/dL (75-100) 04/11/18 05:17 POC Glucose 132 (70-105) H 04/04/18 21:37 Osmolality 270 Mosm/kg 04/04/18 07:55 Calcium 7.9 mg/dL (8.4-10.2) L 04/11/18 05:17 Magnesium 1.60 mg/dL (1.7-2.3) L 04/04/18 03:00 Total Bilirubin 17.80 mg/dL (0.1-1.2) H 04/11/18 05:17 Direct Bilirubin 9.7 mg/dL (0-0.2) H 04/06/18 03:50 Indirect Bilirubin 5.6 mg/dL 04/06/18 03:50 AST 172 units/L (5-40) H 04/11/18 05:17 ALT 60 units/L (7-56) H 04/11/18 05:17 Alkaline Phosphatase 84 units/L (35-129) 04/11/18 05:17 Ammonia 93.0 umol/L (25-60) H 04/06/18 08:36 NT-Pro-B Natriuret Pep 519.7 pg/mL (0-450) H 04/04/18 03:00 Total Protein 6.8 g/dL (6.3-8.2) 04/11/18 05:17 Albumin 3.4 g/dL (3.9-5) L 04/11/18 05:17 Albumin/Globulin Ratio 1.0 % 04/11/18 05:17 Lipase 121 units/L (13-60) H 04/04/18 03:00 TSH 2.320 mlU/mL (0.270-4.200) 04/04/18 03:00 Free T4 1.25 ng/dL (0.76-1.46) 04/04/18 03:00 Urine Color [place] (Yellow) 04/04/18 16:10 Urine Turbidity Cloudy (Clear) 04/04/18 16:10 Urine pH 6.0 (5.0-7.0) 04/04/18 16:10 Ur Specific [place] 1.017 (1.003-1.030) 04/04/18 16:10 Urine Protein 30 mg/dl mg/dL (Negative) 04/04/18 16:10 Urine Glucose (UA) 50 mg/dL (Negative) 04/04/18 16:10 Urine Ketones Tr mg/dL (Negative) 04/04/18 16:10 Urine Blood Lg (Negative) 04/04/18 16:10 Urine Nitrite Neg (Negative) 04/04/18 16:10 Urine Bilirubin Mod (Negative) 04/04/18 16:10 Urine Ictotest Positive (Negative) 04/04/18 16:10 Urine Urobilinogen 4.0 mg/dL (<2.0) 04/04/18 16:10 Ur Leukocyte Esterase Neg (Negative) 04/04/18 16:10 Urine WBC (Auto) 24.0 /HPF (0.0-6.0) H 04/04/18 16:10 Urine RBC (Auto) 3.0 /HPF (0.0-6.0) 04/04/18 16:10 Urine Bacteria (Auto) 2+ /HPF (Negative) 04/04/18 16:10 Urine Mucus 1+ /HPF 04/04/18 16:10 Urine Osmolality 485 Mosm/kg 04/04/18 16:10 Urine Creatinine 136.8 mg/dL (0.1-20.0) H 04/04/18 16:10 Urine Sodium 13 mmol/L 04/04/18 16:10 Urine Chloride 23.9 mmolL (110-250) L 04/04/18 16:10 Plasma/Serum Alcohol 0.20 % (0-0.07) H 04/04/18 03:00 Hepatitis A IgM Ab Non-reactive (NonReactive) 04/05/18 12:52 Hep Bs Antigen Non-reactive (Negative) 04/05/18 12:52 Hep B Core IgM Ab Non-reactive (NonReactive) 04/05/18 12:52 Hepatitis C Antibody Non-reactive (NonReactive) 04/05/18 12:52 Blood Type O POSITIVE 04/04/18 03:00 Antibody Screen Negative 04/04/18 03:00
[2018-04-11] MEDS: SODIUM CHLORIDE PO SCH ×4 (10:26→22:08)
[2018-04-11] MEDS: MUCINEX ER PO SCH ×2 (10:27→22:07)
[2018-04-11] MEDS: VITAMIN B-1 PO SCH (10:27)
[2018-04-11] MEDS: FOLVITE PO SCH (10:27)
[2018-04-11] MEDS: ORAPRED PO SCH (10:27)
[2018-04-11] MEDS: LEVAQUIN 500MG/100ML 500 MG/100 ML BAG IV SCH (10:28)
[2018-04-11] MEDS: ALDACTONE PO SCH (10:28)
[2018-04-11] MEDS: SODIUM CHLORIDE FLUSH SYRINGE 10 ML IV SCH ×2 (10:29→22:15)
--- NOTE | 2018-04-11 11:22 | Progress Note ---
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 * Alcohol abuse * Hypomagnesemia * Hypocalcemia Plan: * Na gradually improving * added salt tablets--increase to TID * cirrhosis and liver disease are absolute contraindications to samsca and vaprisol * Continue diuresis w/ lasix 20mg IV w/ Albumin q12h * Fluid restriction - 1200ml/day * Alcohol cessation advised * GI/Hepatology recommendations noted * Replete lytes prn * Family continues to give water, worsening the hyponatrema, will continue to follow labs, but overall prognosis is poor and complaince with an issue Subjective Date of service: 04/11/18 Principal diagnosis: ETOH/cirrhosis Interval history: resting well in bed today Objective - Exam Narrative Exam: General appearance: well-developed, other (jaundiced) EENT: sclera incterus Respiratory: Present: Clear to Ascultation Cardiology: regular, S1S2 Gastrointestinal: no tenderness, distended, obese Integumentary: other (jaundice) Neurologic: confused Musculoskeletal: other (+edema) - Vital Signs Vital signs: Vital Signs - 12hr 04/11/18 04/11/18 04/11/18 00:00 01:00 02:00 Temperature 98.4 F Pulse Rate 93 H 91 H 91 H Pulse Rate [ 95 H From Monitor] Respiratory 16 19 21 Rate Blood Pressure 159/92 153/86 149/95 O2 Sat by Pulse 95 94 90 Oximetry 04/11/18 04/11/18 04/11/18 03:00 04:00 05:00 Temperature 98.8 F Pulse Rate 89 92 H 91 H Pulse Rate [ 67 From Monitor] Respiratory 22 30 H 25 H Rate Blood Pressure 141/96 155/100 147/89 O2 Sat by Pulse 83 L 85 82 L Oximetry 04/11/18 04/11/18 04/11/18 06:00 07:00 07:45 Temperature 98.3 F Pulse Rate 89 90 Pulse Rate [ From Monitor] Respiratory 20 29 H Rate Blood Pressure 143/84 132/73 O2 Sat by Pulse 88 86 Oximetry 04/11/18 04/11/18 08:00 10:28 Temperature 98.2 F Pulse Rate 89 102 H Pulse Rate [ 67 From Monitor] Respiratory 21 Rate Blood Pressure 132/84 126/56 O2 Sat by Pulse 92 Oximetry - Lab 04/08/18 04:10 04/11/18 05:17 Most recent lab results Calcium 7.9 mg/dL (8.4-10.2) L 04/11/18 05:17 Magnesium 1.60 mg/dL (1.7-2.3) L 04/04/18 03:00 Urine Creatinine 136.8 mg/dL (0.1-20.0) H 04/04/18 16:10 Urine Sodium 13 mmol/L 04/04/18 16:10 Medications & Allergies - Medications Allergies/Adverse Reactions: Allergies No Known Allergies Allergy (Verified 04/04/18 04:27) Home Medications: Home Medications Medication Instructions Recorded Confirmed Last Taken Type Multivitamin [One Daily 1 each PO DAILY 04/04/18 04/04/18 Unknown History Multivitamin] Active Medications: Generic Name Dose Route Start Last Admin Trade Name Freq PRN Reason Stop Dose Admin Albumin Human 25 gm 04/06/18 11:00 04/10/18 22:01 Alburx 25% (Albumin) IV 25 gm Q12H DENISE Administration Benzonatate 200 mg 04/09/18 06:00 04/11/18 05:21 Tessalon Perles PO 200 mg Q8HR DENISE Administration Folic Acid 1 mg 04/04/18 10:00 04/11/18 10:27 Folvite PO 1 mg QDAY DENISE Administration Furosemide 20 mg 04/06/18 11:00 04/10/18 22:16 Lasix IV 20 mg Q12H DENISE Administration Guaifenesin 600 mg 04/05/18 14:00 04/11/18 10:27 Mucinex Er PO 600 mg BID DNEISE Administration Levofloxacin/Dextrose 500 mg in 100 mls @ 100 mls/hr 04/05/18 14:00 04/11/18 10:28 Levaquin 500mg/100ml IV 04/14/18 10:59 100 mls/hr Q24HR DENISE Administration Protocol Lorazepam 4 mg 04/08/18 01:55 Ativan IV Q1H PRN IVETTE-Ar 16-25 Morphine Sulfate 2 mg 04/04/18 12:00 04/07/18 22:01 Morphine IV 2 mg Q4H PRN Administration Pain, Moderate (4-6) Ondansetron HCl 4 mg 04/04/18 06:26 Zofran IV Q8H PRN Nausea And Vomiting Prednisolone Sodium Phosphate 40 mg 04/04/18 16:00 04/11/18 10:27 Orapred PO 40 mg DAILY DENISE Administration Sodium Chloride 10 ml 04/04/18 10:00 04/11/18 10:29 Sodium Chloride Flush Syringe 10 Ml IV 10 ml BID DENISE Administration Sodium Chloride 10 ml 04/04/18 06:26 Sodium Chloride Flush Syringe 10 Ml IV PRN PRN LINE FLUSH Sodium Chloride 1 gm 04/10/18 14:00 04/11/18 10:26 Sodium Chloride PO 1 gm TID DENISE Administration Spironolactone 25 mg 04/10/18 13:00 04/11/18 10:28 Aldactone PO 25 mg QDAY DENISE Administration Thiamine HCl 100 mg 04/04/18 10:00 04/11/18 10:27 Vitamin B-1 PO 100 mg DAILY DENISE Administration
--- NOTE | 2018-04-11 11:24 | Gastroenterology Progress Note ---
Addendum entered and electronically signed by TED PATIÑO MD 04/11/18 15:11: - management as outlined below - continue meds and diet - hopefully d/c 1-2 days Original Note: Assessment and Plan 1.jaundice/hyperbilirubinemia 2.ETOH abuse 3.hyponatremia -T.tushar 17.80-slight trend down -LFTs-trending down -abd U/S-showed hepatic steatosis; no evidence of obstruction or lesion -etiology-acute alcoholic hepatitis; underlying cirrhosis unable to be excluded (labs suggestive given low plt and elevated INR) -clinically, patient has no overt encephalopathy. Denies abd pain, N/V, or active signs of bleeding. -continue steroids -alcohol cessation-ETOH withdrawal/electrolyte management per primary team -continue to trend labs and supportive care- INR in am -will follow Subjective Date of service: 04/11/18 Principal diagnosis: ETOH/cirrhosis Interval history: No acute distress or GI complaints. Objective - Constitutional Vitals: Temp Pulse Resp BP Pulse Ox 98.2 F 102 H 11 L 126/56 97 04/11/18 08:00 04/11/18 10:28 04/11/18 08:00 04/11/18 10:28 04/11/18 08:00 General appearance: no acute distress, obese - EENT Eyes: scleral icterus - Respiratory Respiratory: bilateral: CTA (anterior) - Cardiovascular Rhythm: regular Heart Sounds: Present: S1 & S2 - Gastrointestinal General gastrointestinal: Present: soft, non-tender, non-distended, normal bowel sounds - Integumentary Integumentary: Present: jaundice - Neurologic Neurological: alert and oriented x3 - Labs CBC & Chem 7: 04/08/18 04:10 04/11/18 05:17 Labs: Laboratory Results - last 24 hr 04/11/18 05:17 Sodium 124 L Potassium 3.3 L Chloride 90.8 L Carbon Dioxide 24 Anion Gap 13 BUN 7 L Creatinine < 0.2 L Estimated GFR > 60 BUN/Creatinine Ratio 35 Glucose 95 Calcium 7.9 L Total Bilirubin 17.80 H AST 172 H ALT 60 H Alkaline Phosphatase 84 Total Protein 6.8 Albumin 3.4 L Albumin/Globulin Ratio 1.0
[2018-04-11] MEDS ORDERED: MAGNESIUM SULFATE 2GM/50ML 2 GM/50 ML BAG IV ONE (13:00)
[2018-04-11] MEDS: ALBURX 25% (ALBUMIN) IV SCH (15:06)
[2018-04-11] MEDS: LASIX IV SCH ×2 (15:08→23:50)
[2018-04-12] MEDS: TESSALON PERLES PO SCH ×3 (05:26→22:02)
[2018-04-12 05:43] LABS: Basophils # (Auto) 0.1 K/mm3 (0.0-0.1); Basophils % (Auto) 0.4 % (0.0-1.8); Eosinophils # (Auto) 0.1 K/mm3 (0.0-0.4); Eosinophils % (Auto) 0.5 % (0.0-4.3); Hematocrit 28.1 % (35.5-45.6); Hemoglobin 9.7 gm/dl (11.8-15.2); Mean Corpuscular HGB Conc 35 % (32-34); Mean Corpuscular Volume 116 fl (84-94); Monocytes # (Auto) 2.5 K/mm3 (0.0-0.8); Monocytes % (Auto) 13.2 % (0.0-7.3); Platelet Count 116 K/mm3 (140-440); Red Blood Count 2.43 M/mm3 (3.65-5.03); Red Cell Distribution Width 15.5 % (13.2-15.2)
[2018-04-12 05:52] LABS: INR 2.1 (0.87-1.13)
[2018-04-12 06:00] LABS: BUN/Creatinine Ratio 35; Blood Urea Nitrogen 7 mg/dL (9-20); Calcium 8.4 mg/dL (8.4-10.2); Hemolysis Index 0
[2018-04-12 07:16] LABS: Alanine Aminotransferase 66 units/L (7-56); Albumin 3.7 g/dL (3.9-5)
[2018-04-12] MEDS: ALBURX 25% (ALBUMIN) IV SCH ×3 (07:39→23:50)
--- NOTE | 2018-04-12 09:09 | Progress Note ---
Assessment and Plan Assessment and plan: Severe hyponatremia, symptomatic; secondary to alcohol abuse/beer potomania. Sodium improving, 131 today. Continue Fluid restriction - 1200ml/day. Follow-up BMP Jaundice/Hyperbilirubinemia. Abdominal ultrasound showed hepatic steatosis; no evidence of obstruction or lesion. LFTs trending upward. Continue empiric Antibiotics. Bili 19.5 today, slightly higher than yesterday Peripheral edema. Continue diuresis w/ lasix 20mg IV w/ Albumin q12h Acute alcoholic hepatitis +/- liver cirrhosis. Laboratory suggestive of cirrhosis with thrombocytopenia and elevated INR EtOH abuse. Continue CIWA protocol. Alcohol cessation advised Coagulopathy. Etiology secondary to cirrhosis. Vitamin K when necessary. Thrombocytopenia. Etiology likely secondary to liver disease. Hypomagnesemia. Now resolved. Overall poor prognosis Disposition. Hopefully dc home in few days. History Interval history: Feels better Weakness improved Hospitalist Physical - Physical exam Narrative exam: GEN: Not in acute distress, lying in bed HEENT: Normocephalic, atraumatic, Neck: supple, No JVD Lungs: Clear to auscultation bilaterally, no wheeze Heart:S1 and S2 regular, no murmurs, rubs or gallop, Abd:soft, non tender, non distended, normal bowel sounds Ext: No edema, no clubbing or cyanosis Neuro: Awake,alert, oriented x 3, No focal signs Psych:Normal mood - Constitutional Vitals: Temp Pulse Resp BP Pulse Ox 98.6 F 85 16 137/80 99 04/12/18 08:00 04/12/18 08:00 04/12/18 08:00 04/12/18 08:00 04/12/18 08:00 General appearance: Present: no acute distress, well-nourished Results - Labs CBC & Chem 7: 04/12/18 05:22 04/12/18 05:22 Labs: Laboratory Last Values WBC 18.8 K/mm3 (4.5-11.0) H 04/12/18 05:22 RBC 2.43 M/mm3 (3.65-5.03) L 04/12/18 05:22 Hgb 9.7 gm/dl (11.8-15.2) L 04/12/18 05:22 Hct 28.1 % (35.5-45.6) L 04/12/18 05:22 MCV 116 fl (84-94) H 04/12/18 05:22 MCH 40 pg (28-32) H 04/12/18 05:22 MCHC 35 % (32-34) H 04/12/18 05:22 RDW 15.5 % (13.2-15.2) H 04/12/18 05:22 Plt Count 116 K/mm3 (140-440) L 04/12/18 05:22 Lymph % (Auto) 16.0 % (13.4-35.0) 04/12/18 05:22 [place] % (Auto) 13.2 % (0.0-7.3) H 04/12/18 05:22 Eos % (Auto) 0.5 % (0.0-4.3) 04/12/18 05:22 Baso % (Auto) 0.4 % (0.0-1.8) 04/12/18 05:22 Lymph # 3.0 K/mm3 (1.2-5.4) 04/12/18 05:22 [place] # 2.5 K/mm3 (0.0-0.8) H 04/12/18 05:22 Eos # 0.1 K/mm3 (0.0-0.4) 04/12/18 05:22 Baso # 0.1 K/mm3 (0.0-0.1) 04/12/18 05:22 Add Manual Diff Complete 04/05/18 04:59 Total Counted 100 04/05/18 04:59 Seg Neutrophils % 69.9 % (40.0-70.0) 04/12/18 05:22 Seg Neuts % (Manual) 76.0 % (40.0-70.0) H 04/05/18 04:59 Band Neutrophils % 20.0 % 04/05/18 04:59 Lymphocytes % (Manual) 3.0 % (13.4-35.0) L 04/05/18 04:59 Reactive Lymphs % (Man) 0 % 04/05/18 04:59 Monocytes % (Manual) 1.0 % (0.0-7.3) 04/05/18 04:59 Eosinophils % (Manual) 0 % (0.0-4.3) 04/05/18 04:59 Basophils % (Manual) 0 % (0.0-1.8) 04/05/18 04:59 Metamyelocytes % 0 % 04/05/18 04:59 Myelocytes % 0 % 04/05/18 04:59 Promyelocytes % 0 % 04/05/18 04:59 Blast Cells % 0 % 04/05/18 04:59 Nucleated RBC % Not Reportable 04/05/18 04:59 Seg Neutrophils # 13.1 K/mm3 (1.8-7.7) H 04/12/18 05:22 Seg Neutrophils # Man 9.3 K/mm3 (1.8-7.7) H 04/05/18 04:59 Band Neutrophils # 2.4 K/mm3 04/05/18 04:59 Lymphocytes # (Manual) 0.4 K/mm3 (1.2-5.4) L 04/05/18 04:59 Abs React Lymphs (Man) 0.0 K/mm3 04/05/18 04:59 Monocytes # (Manual) 0.1 K/mm3 (0.0-0.8) 04/05/18 04:59 Eosinophils # (Manual) 0.0 K/mm3 (0.0-0.4) 04/05/18 04:59 Basophils # (Manual) 0.0 K/mm3 (0.0-0.1) 04/05/18 04:59 Metamyelocytes # 0.0 K/mm3 04/05/18 04:59 Myelocytes # 0.0 K/mm3 04/05/18 04:59 Promyelocytes # 0.0 K/mm3 04/05/18 04:59 Blast Cells # 0.0 K/mm3 04/05/18 04:59 WBC Morphology Not Reportable 04/05/18 04:59 Hypersegmented Neuts Not Reportable 04/05/18 04:59 Hyposegmented Neuts Not Reportable 04/05/18 04:59 Hypogranular Neuts Not Reportable 04/05/18 04:59 Smudge Cells Not Reportable 04/05/18 04:59 Toxic Granulation Not Reportable 04/05/18 04:59 Toxic Vacuolation Not Reportable 04/05/18 04:59 Dohle Bodies Not Reportable 04/05/18 04:59 Pelger-Huet Anomaly Not Reportable 04/05/18 04:59 Dannie Rods Not Reportable 04/05/18 04:59 Platelet Estimate Consistent w auto 04/05/18 04:59 Clumped Platelets Not Reportable 04/05/18 04:59 Plt Clumps, EDTA Not Reportable 04/05/18 04:59 Large Platelets Not Reportable 04/05/18 04:59 Giant Platelets Not Reportable 04/05/18 04:59 Platelet Satelliting Not Reportable 04/05/18 04:59 Plt Morphology Comment Not Reportable 04/05/18 04:59 RBC Morphology Not Reportable 04/05/18 04:59 Dimorphic RBCs Not Reportable 04/05/18 04:59 Polychromasia Not Reportable 04/05/18 04:59 Hypochromasia Few 04/05/18 04:59 Poikilocytosis Not Reportable 04/05/18 04:59 Anisocytosis Not Reportable 04/05/18 04:59 Microcytosis Not Reportable 04/05/18 04:59 Macrocytosis 1+ 04/05/18 04:59 Spherocytes Few 04/05/18 04:59 Pappenheimer Bodies Not Reportable 04/05/18 04:59 Sickle Cells Not Reportable 04/05/18 04:59 Target Cells Few 04/05/18 04:59 Tear Drop Cells Not Reportable 04/05/18 04:59 Ovalocytes Not Reportable 04/05/18 04:59 Helmet Cells Not Reportable 04/05/18 04:59 [place] Bodies Not Reportable 04/05/18 04:59 Bimble Rings Not Reportable 04/05/18 04:59 [place] Cells Not Reportable 04/05/18 04:59 Bite Cells Not Reportable 04/05/18 04:59 Crenated Cell Not Reportable 04/05/18 04:59 Elliptocytes Not Reportable 04/05/18 04:59 Acanthocytes (Spur) Not Reportable 04/05/18 04:59 Rouleaux Not Reportable 04/05/18 04:59 Hemoglobin C Crystals Not Reportable 04/05/18 04:59 Schistocytes Not Reportable 04/05/18 04:59 Malaria parasites Not Reportable 04/05/18 04:59 Slick Bodies Not Reportable 04/05/18 04:59 Hem Pathologist Commnt No 04/05/18 04:59 PT 24.0 Sec. (12.2-14.9) H 04/12/18 05:22 INR 2.10 (0.87-1.13) H 04/12/18 05:22 APTT 59.4 Sec. (24.2-36.6) H 04/05/18 04:59 Sodium 131 mmol/L (137-145) L D 04/12/18 05:22 Potassium 3.5 mmol/L (3.6-5.0) L 04/12/18 05:22 Chloride 93.1 mmol/L (98-107) L 04/12/18 05:22 Carbon Dioxide 26 mmol/L (22-30) 04/12/18 05:22 Anion Gap 15 mmol/L 04/12/18 05:22 BUN 7 mg/dL (9-20) L 04/12/18 05:22 Creatinine < 0.2 mg/dL (0.8-1.5) L 04/12/18 05:22 Estimated GFR > 60 ml/min 04/12/18 05:22 BUN/Creatinine Ratio 35 % 04/12/18 05:22 Glucose 99 mg/dL (75-100) 04/12/18 05:22 POC Glucose 132 (70-105) H 04/04/18 21:37 Osmolality 270 Mosm/kg 04/04/18 07:55 Calcium 8.4 mg/dL (8.4-10.2) 04/12/18 05:22 Magnesium 2.20 mg/dL (1.7-2.3) 04/12/18 05:22 Total Bilirubin 19.50 mg/dL (0.1-1.2) H 04/12/18 05:22 Direct Bilirubin 9.7 mg/dL (0-0.2) H 04/06/18 03:50 Indirect Bilirubin 5.6 mg/dL 04/06/18 03:50 AST 176 units/L (5-40) H 04/12/18 05:22 ALT 66 units/L (7-56) H 04/12/18 05:22 Alkaline Phosphatase 88 units/L (35-129) 04/12/18 05:22 Ammonia 93.0 umol/L (25-60) H 04/06/18 08:36 NT-Pro-B Natriuret Pep 519.7 pg/mL (0-450) H 04/04/18 03:00 Total Protein 7.5 g/dL (6.3-8.2) 04/12/18 05:22 Albumin 3.7 g/dL (3.9-5) L 04/12/18 05:22 Albumin/Globulin Ratio 1.0 % 04/12/18 05:22 Lipase 121 units/L (13-60) H 04/04/18 03:00 TSH 2.320 mlU/mL (0.270-4.200) 04/04/18 03:00 Free T4 1.25 ng/dL (0.76-1.46) 04/04/18 03:00 Urine Color [place] (Yellow) 04/04/18 16:10 Urine Turbidity Cloudy (Clear) 04/04/18 16:10 Urine pH 6.0 (5.0-7.0) 04/04/18 16:10 Ur Specific [place] 1.017 (1.003-1.030) 04/04/18 16:10 Urine Protein 30 mg/dl mg/dL (Negative) 04/04/18 16:10 Urine Glucose (UA) 50 mg/dL (Negative) 04/04/18 16:10 Urine Ketones Tr mg/dL (Negative) 04/04/18 16:10 Urine Blood Lg (Negative) 04/04/18 16:10 Urine Nitrite Neg (Negative) 04/04/18 16:10 Urine Bilirubin Mod (Negative) 04/04/18 16:10 Urine Ictotest Positive (Negative) 04/04/18 16:10 Urine Urobilinogen 4.0 mg/dL (<2.0) 04/04/18 16:10 Ur Leukocyte Esterase Neg (Negative) 04/04/18 16:10 Urine WBC (Auto) 24.0 /HPF (0.0-6.0) H 04/04/18 16:10 Urine RBC (Auto) 3.0 /HPF (0.0-6.0) 04/04/18 16:10 Urine Bacteria (Auto) 2+ /HPF (Negative) 04/04/18 16:10 Urine Mucus 1+ /HPF 04/04/18 16:10 Urine Osmolality 485 Mosm/kg 04/04/18 16:10 Urine Creatinine 136.8 mg/dL (0.1-20.0) H 04/04/18 16:10 Urine Sodium 13 mmol/L 04/04/18 16:10 Urine Chloride 23.9 mmolL (110-250) L 04/04/18 16:10 Plasma/Serum Alcohol 0.20 % (0-0.07) H 04/04/18 03:00 Hepatitis A IgM Ab Non-reactive (NonReactive) 04/05/18 12:52 Hep Bs Antigen Non-reactive (Negative) 04/05/18 12:52 Hep B Core IgM Ab Non-reactive (NonReactive) 04/05/18 12:52 Hepatitis C Antibody Non-reactive (NonReactive) 04/05/18 12:52 Blood Type O POSITIVE 04/04/18 03:00 Antibody Screen Negative 04/04/18 03:00 Nutrition/Malnutrition Assess - Dietary Evaluation Nutrition/Malnutrition Findings: Nutrition Notes Start: 04/11/18 14:30 Freq: Status: Active Protocol: Document 04/11/18 14:30 [facility] (Rec: 04/11/18 14:36 [facility] [id number]) Nutrition Notes Need for Assessment generated from: LOS Initial or Follow up Brief Note Other Pertinent Diagnosis EtOH dependence, Severe hyponatremia, jaundice, hepatitis Current Diet Cardiac + 1200ml flud restriction Labs/Tests Na 128 K 3.3 Pertinent Medications 25% human alb, Folic acid, Lasix, Thiamine Height 5 ft 2 in Weight 118 kg [place] Body Weight (kg) 53.63 BMI 47.5 Weight Status Obese Subjective/Other Information Pt screened for LOS. He is on CIWA protocol. Reports good appetite and is eating ~75% of meals. Explained importance of fluid restriction to pt. Burn Absent Trauma Absent Is patient on ventilator? No Is Patient Ambulatory and/or Out of Bed No REE-([facility]-confined to bed) 2359.620 Kcal/Kg value to use for calculation 15 Approximate Energy Requirements Using 1770 kcal/Kg Calculation Used for Recommendations Kcal/kg Additional Notes Pro needs 0.8-1g/kg adjBW: 69- 86g/day Fluid needs 1.2L/day Nutrition Intervention Follow-Up By: 04/15/18 Additional Comments F/U: intakes, Na lab
[2018-04-12] MEDS: SODIUM CHLORIDE FLUSH SYRINGE 10 ML IV SCH ×2 (09:52→22:03)
[2018-04-12] MEDS: ALDACTONE PO SCH (09:52)
[2018-04-12] MEDS: VITAMIN B-1 PO SCH (09:53)
[2018-04-12] MEDS: FOLVITE PO SCH (09:53)
[2018-04-12] MEDS: ORAPRED PO SCH (09:53)
[2018-04-12] MEDS: SODIUM CHLORIDE PO SCH ×3 (09:55→22:04)
[2018-04-12] MEDS: LASIX IV SCH ×2 (10:23→23:50)
[2018-04-12] MEDS: MUCINEX ER PO SCH ×2 (10:24→22:03)
--- NOTE | 2018-04-12 10:37 | Gastroenterology Progress Note ---
Addendum entered and electronically signed by TED PATIÑO MD 04/12/18 14:38: - noted increase T. bili today - continue to follow labs - no changes at this time - will follow Original Note: Assessment and Plan 1.jaundice/hyperbilirubinemia 2.ETOH abuse 3.hyponatremia -T.tushar 19.50-trending up -LFTs-stable -INR 2.10-trending down -abd U/S-showed hepatic steatosis; no evidence of obstruction or lesion -etiology-acute alcoholic hepatitis; underlying cirrhosis unable to be excluded (labs suggestive given low plt and elevated INR) -clinically, patient has no overt encephalopathy. Denies abd pain, N/V, or acti ve signs of bleeding. -continue steroids -alcohol cessation-ETOH withdrawal/electrolyte management per primary team -continue to trend labs and supportive care -hopefully d/c 1-2 days -will follow Subjective Date of service: 04/12/18 Principal diagnosis: ETOH/cirrhosis Interval history: No acute distress or GI complaints. Objective - Constitutional Vitals: Temp Pulse Resp BP Pulse Ox 98.6 F 99 H 16 132/72 99 04/12/18 08:00 04/12/18 09:52 04/12/18 08:00 04/12/18 09:52 04/12/18 08:00 General appearance: no acute distress, obese - EENT Eyes: PERRL, EOM intact, scleral icterus ENT: hearing intact - Respiratory Respiratory: bilateral: CTA - Cardiovascular Rhythm: regular Heart Sounds: Present: S1 & S2 - Gastrointestinal General gastrointestinal: Present: soft, non-tender, non-distended, normal bowel sounds, other (obese) - Integumentary Integumentary: Present: jaundice - Neurologic Neurological: alert and oriented x3 - Labs CBC & Chem 7: 04/12/18 05:22 04/12/18 05:22 Labs: Laboratory Results - last 24 hr 04/11/18 04/12/18 04/12/18 05:12 05:22 05:22 WBC RBC Hgb Hct MCV MCH MCHC RDW Plt Count Lymph % (Auto) [place] % (Auto) Eos % (Auto) Baso % (Auto) Lymph # [place] # Eos # Baso # Seg Neutrophils % Seg Neutrophils # PT INR Sodium 131 L D Potassium 3.5 L Chloride 93.1 L Carbon Dioxide 26 Anion Gap 15 BUN 7 L Creatinine < 0.2 L Estimated GFR > 60 BUN/Creatinine Ratio 35 Glucose 99 Calcium 8.4 Magnesium 1.80 2.20 Total Bilirubin 19.50 H AST 176 H ALT 66 H Alkaline Phosphatase 88 Total Protein 7.5 Albumin 3.7 L Albumin/Globulin Ratio 1.0 04/12/18 04/12/18 05:22 05:22 WBC 18.8 H RBC 2.43 L Hgb 9.7 L Hct 28.1 L MCV 116 H MCH 40 H MCHC 35 H RDW 15.5 H Plt Count 116 L Lymph % (Auto) 16.0 [place] % (Auto) 13.2 H Eos % (Auto) 0.5 Baso % (Auto) 0.4 Lymph # 3.0 [place] # 2.5 H Eos # 0.1 Baso # 0.1 Seg Neutrophils % 69.9 Seg Neutrophils # 13.1 H PT 24.0 H INR 2.10 H Sodium Potassium Chloride Carbon Dioxide Anion Gap BUN Creatinine Estimated GFR BUN/Creatinine Ratio Glucose Calcium Magnesium Total Bilirubin AST ALT Alkaline Phosphatase Total Protein Albumin Albumin/Globulin Ratio
--- NOTE | 2018-04-12 15:26 | Progress Note ---
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 * Alcohol abuse * Hypomagnesemia * Hypocalcemia Plan: * Na gradually improving * added salt tablets--increase to TID * cirrhosis and liver disease are absolute contraindications to samsca and vaprisol * Continue diuresis w/ lasix 20mg IV w/ Albumin q12h * Fluid restriction - 1200ml/day * Alcohol cessation advised * GI/Hepatology recommendations noted * Replete lytes prn * Family continues to give water, worsening the hyponatrema, will continue to follow labs, but overall prognosis is poor and complaince with an issue Subjective Date of service: 04/12/18 Principal diagnosis: ETOH/cirrhosis Interval history: resting well in bed today Objective - Exam Narrative Exam: General appearance: well-developed, other (jaundiced) EENT: sclera incterus Respiratory: Present: Clear to Ascultation Cardiology: regular, S1S2 Gastrointestinal: no tenderness, distended, obese Integumentary: other (jaundice) Neurologic: confused Musculoskeletal: other (+edema) - Vital Signs Vital signs: Vital Signs - 12hr 04/12/18 04/12/18 04/12/18 04:00 05:00 06:00 Temperature 98.8 F Pulse Rate 82 79 90 Pulse Rate [ From Monitor] Respiratory 27 H 26 H 26 H Rate Blood Pressure 133/76 135/86 O2 Sat by Pulse 93 96 93 Oximetry 04/12/18 04/12/18 04/12/18 07:00 08:00 09:00 Temperature 98.6 F Pulse Rate 82 83 97 H Pulse Rate [ 85 From Monitor] Respiratory 22 23 13 Rate Blood Pressure 135/86 137/80 145/78 O2 Sat by Pulse 96 98 99 Oximetry 04/12/18 04/12/18 04/12/18 09:52 10:00 11:00 Temperature Pulse Rate 99 H 94 H 95 H Pulse Rate [ From Monitor] Respiratory 24 29 H Rate Blood Pressure 132/72 132/72 135/73 O2 Sat by Pulse 98 98 Oximetry 04/12/18 04/12/18 12:00 13:00 Temperature 98.0 F Pulse Rate 99 H 94 H Pulse Rate [ 72 From Monitor] Respiratory 17 20 Rate Blood Pressure 125/72 116/71 O2 Sat by Pulse 98 98 Oximetry - Lab 04/12/18 05:22 04/12/18 05:22 Most recent lab results Calcium 8.4 mg/dL (8.4-10.2) 04/12/18 05:22 Magnesium 2.20 mg/dL (1.7-2.3) 04/12/18 05:22 Urine Creatinine 136.8 mg/dL (0.1-20.0) H 04/04/18 16:10 Urine Sodium 13 mmol/L 04/04/18 16:10 Medications & Allergies - Medications Allergies/Adverse Reactions: Allergies No Known Allergies Allergy (Verified 04/04/18 04:27) Home Medications: Home Medications Medication Instructions Recorded Confirmed Last Taken Type Multivitamin [One Daily 1 each PO DAILY 04/04/18 04/04/18 Unknown History Multivitamin] Active Medications: Generic Name Dose Route Start Last Admin Trade Name Freq PRN Reason Stop Dose Admin Albumin Human 25 gm 04/06/18 11:00 04/12/18 10:24 Alburx 25% (Albumin) IV 25 gm Q12H DENISE Administration Benzonatate 200 mg 04/09/18 06:00 04/12/18 13:59 Tessalon Perles PO 200 mg Q8HR DENISE Administration Folic Acid 1 mg 04/04/18 10:00 04/12/18 09:53 Folvite PO 1 mg QDAY DENISE Administration Furosemide 20 mg 04/06/18 11:00 04/12/18 10:23 Lasix IV 20 mg Q12H DENISE Administration Guaifenesin 600 mg 04/05/18 14:00 04/12/18 10:24 Mucinex Er PO 600 mg BID DENISE Administration Lorazepam 4 mg 04/08/18 01:55 Ativan IV Q1H PRN CIWA-Ar 16-25 Morphine Sulfate 2 mg 04/04/18 12:00 04/07/18 22:01 Morphine IV 2 mg Q4H PRN Administration Pain, Moderate (4-6) Ondansetron HCl 4 mg 04/04/18 06:26 Zofran IV Q8H PRN Nausea And Vomiting Prednisolone Sodium Phosphate 40 mg 04/04/18 16:00 04/12/18 09:53 Orapred PO 40 mg DAILY DENISE Administration Sodium Chloride 10 ml 04/04/18 10:00 04/12/18 09:52 Sodium Chloride Flush Syringe 10 Ml IV 10 ml BID DENISE Administration Sodium Chloride 10 ml 04/04/18 06:26 Sodium Chloride Flush Syringe 10 Ml IV PRN PRN LINE FLUSH Sodium Chloride 1 gm 04/10/18 14:00 04/12/18 13:59 Sodium Chloride PO 1 gm TID DENISE Administration Spironolactone 25 mg 04/10/18 13:00 04/12/18 09:52 Aldactone PO 25 mg QDAY DENISE Administration Thiamine HCl 100 mg 04/04/18 10:00 04/12/18 09:53 Vitamin B-1 PO 100 mg DAILY DENISE Administration
[2018-04-13] MEDS: TESSALON PERLES PO SCH ×2 (06:03→13:27)
[2018-04-13 06:07] LABS: Hematocrit 26.1 % (35.5-45.6); Hemoglobin 9.2 gm/dl (11.8-15.2); Mean Corpuscular HGB Conc 35 % (32-34); Mean Corpuscular Volume 116 fl (84-94); Platelet Count 104 K/mm3 (140-440); Red Blood Count 2.26 M/mm3 (3.65-5.03)
[2018-04-13 06:21] LABS: INR 2.31 (0.87-1.13)
[2018-04-13 06:37] LABS: Alanine Aminotransferase 68 units/L (7-56); Albumin 3.5 g/dL (3.9-5); BUN/Creatinine Ratio 45; Blood Urea Nitrogen 9 mg/dL (9-20); Calcium 8.2 mg/dL (8.4-10.2); Hemolysis Index 0
--- NOTE | 2018-04-13 09:29 | Discharge Summary ---
Providers - Providers Date of Admission: 04/04/18 06:54 Date of discharge: 04/13/18 Attending physician: LIA HA 04/04/18 06:26 Consult to Physician [CONS] Urgent Comment: Dr. Thorpe spoke to Dr. Brasher @ [phone] Consulting Provider: EM BRASHER Physician Instructions: Reason For Exam: hyponatremia 04/04/18 06:33 Consult to Physician [CONS] Routine Comment: Consulting Provider: LANDY ANGUIANO Physician Instructions: Reason For Exam: etoh cirrhosis 04/05/18 12:00 Physical Therapy Evaluation and Treat [CONS] Routine Comment: Reason For Exam: First time getting Pt OOB to chair 04/11/18 10:10 Physical Therapy Evaluation and Treat [CONS] Routine Comment: Reason For Exam: deconditioning Primary care physician: ESAU MALDONADO Hospitalization Condition: Fair Hospital course: Severe hyponatremia, symptomatic; secondary to alcohol abuse/beer potomania. Sodium improving, 131 today. Continue Fluid restriction - 1200ml/day. Follow-up BMP Jaundice/Hyperbilirubinemia. Abdominal ultrasound showed hepatic steatosis; no evidence of obstruction or lesion. LFTs trending upward. Continue empiric Antibiotics. Bili 19.5 today, slightly higher than yesterday Peripheral edema. Continue diuresis w/ lasix 20mg IV w/ Albumin q12h Acute alcoholic hepatitis +/- liver cirrhosis. Laboratory suggestive of cirrhosis with thrombocytopenia and elevated INR EtOH abuse. Continue CIWA protocol. Alcohol cessation advised Coagulopathy. Etiology secondary to cirrhosis. Vitamin K when necessary. Thrombocytopenia. Etiology likely secondary to liver disease. Hypomagnesemia. Now resolved. Overall poor prognosis Total time spent on discharge, 32 mins Disposition: TO HOME OR SELFCARE - Discharge Diagnoses (1) Acute alcoholic hepatitis Status: Acute (2) Hyperammonemia Status: Acute (3) Hyperbilirubinemia Status: Acute (4) Hyponatremia Status: Acute (5) Jaundice Status: Acute (6) Thrombocytopenia Status: Acute Core Measure Documentation - Palliative Care Palliative Care/ Comfort Measures: Not Applicable - Core Measures Any of the following diagnoses?: none Exam - Physical Exam Narrative exam: GEN: Not in acute distress, lying in bed HEENT: Normocephalic, atraumatic, Neck: supple, No JVD Lungs: Clear to auscultation bilaterally, no wheeze Heart:S1 and S2 regular, no murmurs, rubs or gallop, Abd:soft, non tender, non distended, normal bowel sounds Ext: No edema, no clubbing or cyanosis Neuro: Awake,alert, oriented x 3, No focal signs Psych:Normal mood - Constitutional Vitals: Temp Pulse Resp BP Pulse Ox 99.2 F 91 H 28 H 119/61 98 04/13/18 04:05 04/13/18 04:05 04/13/18 04:05 04/13/18 04:05 04/13/18 04:05 Plan Activity: no restrictions Diet: low fat, low cholesterol Additional Instructions: 1.Follow up with PCP in 3-5 days. 2.Follow up with Dr. Isra Bermudez, GI in 1 week. 3.Follow up with Dr. Brasher, in 1 week. 4.Fluid restriction 1000 ml in 24 hrs. 5.No beer. Follow up with: ESAU MALDONADO MD [Primary Care Provider] - 3-5 Days Prescriptions: Benzonatate [Tessalon Perles] 200 mg PO Q8HR #20 capsule Folic Acid [Folvite] 1 mg PO QDAY #30 tablet Multivitamin [One Daily Multivitamin] 1 each PO DAILY #30 tablet predniSONE [Deltasone] 40 mg PO QDAY 7 Days tab predniSONE [Deltasone] 30 mg PO DAILY 7 Days tablet predniSONE [Deltasone] 20 mg PO QDAY 7 Days tab predniSONE [Deltasone] 10 mg PO DAILY 7 Days tablet Sodium Chloride 1 gm PO TID 30 Days tablet Spironolactone [Aldactone] 25 mg PO QDAY #30 tablet Thiamine [Vitamin B-1] 100 mg PO DAILY #30 tablet
[2018-04-13] MEDS: ALDACTONE PO SCH (09:54)
[2018-04-13] MEDS: MUCINEX ER PO SCH (09:54)
[2018-04-13] MEDS: FOLVITE PO SCH (09:54)
[2018-04-13] MEDS: VITAMIN B-1 PO SCH (09:54)
[2018-04-13] MEDS: SODIUM CHLORIDE PO SCH ×2 (09:55→13:27)
[2018-04-13] MEDS: SODIUM CHLORIDE FLUSH SYRINGE 10 ML IV SCH (09:55)
[2018-04-13] MEDS: ORAPRED PO SCH (11:41)
--- NOTE | 2018-04-13 12:50 | Progress Note ---
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 * Alcohol abuse * Hypomagnesemia * Hypocalcemia Plan: * Na gradually improving * added salt tablets--increase to TID * cirrhosis and liver disease are absolute contraindications to samsca and vaprisol * Continue diuresis w/ lasix 20mg IV w/ Albumin q12h * Fluid restriction - 1200ml/day * Alcohol cessation advised * GI/Hepatology recommendations noted * Replete lytes prn * Na is better, ok to dc home * 1000ml fluid restriction * no beer * sodium tabs tid. Subjective Date of service: 04/13/18 Principal diagnosis: ETOH/cirrhosis Interval history: resting well in bed today Objective - Exam Narrative Exam: General appearance: well-developed, other (jaundiced) EENT: sclera incterus Respiratory: Present: Clear to Ascultation Cardiology: regular, S1S2 Gastrointestinal: no tenderness, distended, obese Integumentary: other (jaundice) Neurologic: confused Musculoskeletal: other (+edema) - Vital Signs Vital signs: Vital Signs - 12hr 04/13/18 04/13/18 04/13/18 04:00 04:05 09:54 Temperature 99.2 F Pulse Rate 91 H 78 Pulse Rate [ 84 From Monitor] Respiratory 20 28 H Rate Blood Pressure 119/61 120/72 O2 Sat by Pulse 98 98 Oximetry - Lab 04/13/18 05:53 04/13/18 05:53 Most recent lab results Calcium 8.2 mg/dL (8.4-10.2) L 04/13/18 05:53 Magnesium 2.20 mg/dL (1.7-2.3) 04/12/18 05:22 Urine Creatinine 136.8 mg/dL (0.1-20.0) H 04/04/18 16:10 Urine Sodium 13 mmol/L 04/04/18 16:10 Medications & Allergies - Medications Allergies/Adverse Reactions: Allergies No Known Allergies Allergy (Verified 04/04/18 04:27) Home Medications: Home Medications Medication Instructions Recorded Confirmed Last Taken Type Multivitamin [One Daily 1 each PO DAILY 04/04/18 04/04/18 Unknown History Multivitamin] Active Medications: Generic Name Dose Route Start Last Admin Trade Name Freq PRN Reason Stop Dose Admin Albumin Human 25 gm 04/06/18 11:00 04/12/18 23:50 Alburx 25% (Albumin) IV 25 gm Q12H DENISE Administration Benzonatate 200 mg 04/09/18 06:00 04/13/18 06:03 Tessalon Perles PO 200 mg Q8HR DENISE Administration Folic Acid 1 mg 04/04/18 10:00 04/13/18 09:54 Folvite PO 1 mg QDAY DENISE Administration Furosemide 20 mg 04/06/18 11:00 04/12/18 23:50 Lasix IV 20 mg Q12H DENISE Administration Guaifenesin 600 mg 04/05/18 14:00 04/13/18 09:54 Mucinex Er PO 600 mg BID DENISE Administration Lorazepam 4 mg 04/08/18 01:55 Ativan IV Q1H PRN CIWA-Ar 16-25 Morphine Sulfate 2 mg 04/04/18 12:00 04/07/18 22:01 Morphine IV 2 mg Q4H PRN Administration Pain, Moderate (4-6) Ondansetron HCl 4 mg 04/04/18 06:26 Zofran IV Q8H PRN Nausea And Vomiting Prednisolone Sodium Phosphate 40 mg 04/04/18 16:00 04/13/18 11:41 Orapred PO 40 mg DAILY DENISE Administration Sodium Chloride 10 ml 04/04/18 10:00 04/13/18 09:55 Sodium Chloride Flush Syringe 10 Ml IV 10 ml BID DENISE Administration Sodium Chloride 10 ml 04/04/18 06:26 Sodium Chloride Flush Syringe 10 Ml IV PRN PRN LINE FLUSH Sodium Chloride 1 gm 04/10/18 14:00 04/13/18 09:55 Sodium Chloride PO 1 gm TID DENISE Administration Spironolactone 25 mg 04/10/18 13:00 04/13/18 09:54 Aldactone PO 25 mg QDAY DENISE Administration Thiamine HCl 100 mg 04/04/18 10:00 04/13/18 09:54 Vitamin B-1 PO 100 mg DAILY DENISE Administration
[2018-04-13] MEDS: ALBURX 25% (ALBUMIN) IV SCH (13:27)
[2018-04-13] MEDS: LASIX IV SCH (13:27)
--- NOTE | 2018-04-13 14:12 | Gastroenterology Progress Note ---
Addendum entered and electronically signed by TED PATIÑO MD 04/13/18 14:39: - management as outlined below - will need repeat labs outpt 1 wk and further follow up thereafter - will sign off, call if needed Original Note: Assessment and Plan 1.jaundice/hyperbilirubinemia 2.ETOH abuse 3.hyponatremia -T.tushar 17.70-trending down -LFTs-stable -INR 1.32 -abd U/S-showed hepatic steatosis; no evidence of obstruction or lesion -etiology-acute alcoholic hepatitis; underlying cirrhosis unable to be excluded (labs suggestive given low plt and elevated INR) -clinically, patient is stable with no overt encephalopathy. Denies abd pain, N/V, or active signs of bleeding. Tolerating diet. -continue steroids -alcohol cessation-ETOH withdrawal/electrolyte management per primary team -continue to trend labs and supportive care -patient okay to be d/c per GI standpoint on steroids (40mg daily x 1 week, then taper down by 10mg each following week) with f/u in clinic in 1 week for repeat labs (need/importance of f/u discussed with patient with understanding voiced) -will sign off, please call if needed Subjective Date of service: 04/13/18 Principal diagnosis: ETOH/cirrhosis Interval history: No acute distress or GI complaints. Objective - Constitutional Vitals: Temp Pulse Resp BP Pulse Ox 99 F 97 H 20 139/76 98 04/13/18 13:29 04/13/18 13:29 04/13/18 13:29 04/13/18 13:29 04/13/18 04:05 General appearance: no acute distress, obese - EENT Eyes: PERRL, EOM intact, scleral icterus ENT: hearing intact - Respiratory Respiratory: bilateral: CTA - Cardiovascular Rhythm: regular Heart Sounds: Present: S1 & S2 - Gastrointestinal General gastrointestinal: Present: soft, non-tender, non-distended, normal bowel sounds - Integumentary Integumentary: Present: jaundice - Neurologic Neurological: alert and oriented x3 - Labs CBC & Chem 7: 04/13/18 05:53 04/13/18 05:53 Labs: Laboratory Results - last 24 hr 04/13/18 04/13/18 04/13/18 05:53 05:53 05:53 WBC 18.6 H RBC 2.26 L Hgb 9.2 L Hct 26.1 L MCV 116 H MCH 41 H MCHC 35 H RDW 16.0 H Plt Count 104 L PT 25.8 H INR 2.31 H Sodium 131 L Potassium 3.2 L Chloride 95.9 L Carbon Dioxide 26 Anion Gap 12 BUN 9 Creatinine < 0.2 L Estimated GFR > 60 BUN/Creatinine Ratio 45 Glucose 93 Calcium 8.2 L Total Bilirubin 17.70 H AST 153 H ALT 68 H Alkaline Phosphatase 86 Total Protein 6.9 Albumin 3.5 L Albumin/Globulin Ratio 1.0
[2018-04-13 14:55] VITALS: BP 134/62
== END 2018-04-13 16:55 | disposition home or self-care (01) | DRG 433 ==
LOC: ED 01:58 → IMCU 06:54 → CC1 04-10 15:05 → IMCU 04-10 15:45 → 3A 04-12 18:14
PROVIDERS: ADMIT Internal Medicine; ATTEND Internal Medicine
DX: K70.30 Alcoholic cirrhosis of liver without ascites (principal); E87.1 Hypo-osmolality and hyponatremia; R17 Unspecified jaundice; D68.4 Acquired coagulation factor deficiency; E72.20 Disorder of urea cycle metabolism, unspecified; I10 Essential (primary) hypertension; F10.10 Alcohol abuse, uncomplicated; E66.9 Obesity, unspecified; E83.51 Hypocalcemia; E83.42 Hypomagnesemia; D47.3 Essential (hemorrhagic) thrombocythemia; K70.10 Alcoholic hepatitis without ascites; Z71.41 Alcohol abuse counseling and surveillance of alcoholic; Z82.49 Family history of ischemic heart disease and other diseases of the circulatory system; Z79.899 Other long term (current) drug therapy
CPT/HCPCS: 36415; 71045; 76700; 80048; 80053; 80074; 80076; 80320; 81001; 82140; 82436; 82570; 82962; 83690; 83735; 83880; 83930; 83935; 84295; 84300; 84439; 84443; 85007; 85014; 85018; 85025; 85027; 85610; 85730; 86850; 86900; 86901; 93005; 93010; 93970; 94760; G0378; G0480; J0610; J1940; J1956; J2060; J2270; J2405; J3010; J3430; J3475; J7030; J7040; J7050; J7510; P9047